=== PATIENT | female | born 1970 | race Caucasian/White ===

== ENCOUNTER 2016-07-28 20:16 | Emergency (ER) | payer OTHER ==
[~2016-07-28] VITALS: Ht 170.2 cm; Wt 80.2 kg
[~2016-07-28 20:16] MED LIST: ALPR1TAB3 PO; ATOR-24 PO; CLX40 PO; FIBER PO; GLC/500 PO; HYDR12.55 PO; IBUP-1451 PO; METO100T14 PO; PANT40TA PO; TRAM-10 PO; [UNRECOGNIZED DRUG - CODE] PO
[2016-07-28 20:34] VITALS: TEMP 37.5; Ht 170.2 cm; Wt 80.2 kg
[2016-07-28 21:15] LABS: MANUAL MICROSCOPIC REQUIRED? NO; URINE APPEARANCE CLEAR (CLEAR); URINE BILIRUBIN NEG (NEG); URINE COLOR YELLOW; URINE NITRITE NEG (NEG); URINE PH 5.5 (4.5-7.5); URINE SPECIFIC GRAVITY >= 1.030 (1.000-1.030); UROBILINOGEN NEG (NEG)
[2016-07-28 21:25] LABS: REVIEW REQ? NO
[2016-07-28 21:27] LABS: ZZUR CULT IF INDIC CLEAN CATCH NO
[2016-07-28 21:31] LABS: BASO % 0.2 %; BASO ABS # 0.01 K/uL (0-0.2); COMPLETE YES; EOS % 0.5 %; HEMATOCRIT 40.7 % (37-47); IG% 0.2 %; LYMPH % 37.7 %; LYMPH ABS # 2.31 K/uL (1.2-3.4); MEAN CELL VOLUME 97.6 fL (80-100); MEAN CORPUSCULAR HEMOGLOBIN 34.8 pg (25-34); MEAN CORPUSCULAR HGB CONC 35.6 g/dl (32-36); MEAN PLATELET VOLUME 9.2 fL (7.4-10.4); MONO % 4.7 %; NEUT % 56.7 %; PLATELET COUNT 291 K/uL (130-400); RED BLOOD COUNT 4.17 M/uL (4.2-5.4); WHITE BLOOD COUNT 6.12 K/uL (4.8-10.8)
[2016-07-28 21:40] LABS: BENZODIAZEPINE, URINE NEG (NEG); COCAINE,URINE NEG (NEG); PHENCYCLIDINE, URINE NEG (NEG)
[2016-07-28 21:50] LABS: BUN/CREATININE RATIO 14.3 (10-20); CREATININE 0.7 mg/dl (0.60-1.20); POTASSIUM 3.1 mmol/L (3.5-5.1)
[2016-07-28 22:00] LABS: THYROID STIMULATING HORMONE 0.288 uIu/ml (0.300-4.500)
[2016-07-28] MEDS ORDERED: VENL150C56 PO (22:49)
[2016-07-28] MEDS ORDERED: TPM/50 PO (22:51)
[2016-07-28] MEDS ORDERED: TRAZ100T29 PO (22:52)
[2016-07-28] MEDS ORDERED: IMD/2 PO (22:52)
--- NOTE | 2016-07-28 23:32 | EMERGENCY ROOM VISIT NOTE ---
History Report prepared by Saima: Gabriel Barraza Under the Supervision of: Dr. Adriana Stein D.O. First contact with patient: 23:00 Chief Complaint: MENTAL HEALTH EVALUATION Stated Complaint: MENTAL HEALTH EVAL History of Present Illness The patient is a 45 year old female who presents to the Emergency Room with complaints of a mental health evaluation. She notes that her friend who is a nurse called the police because she posted on Facebook indicating that she wanted to "end it all". She later deleted this post. The patient posted this because she has been upset recently as she has been fighting with her fiance for the past 2 weeks. She notes the thoughts she expressed on Facebook just "came out". She admits to being drunk at the time of the post, and admits to drinking alcohol and smoking marijuana occasionally. The patient's fiance is aware that she is in the ER, and she notes she lives with her fiance. She states she feels safe at home and denies suicidal ideations. The patient reports a history of hurting herself since she was a child, and has been cutting herself with a razor blade the past few days. She has not followed regularly with a psychiatric, but used to follow with one in the past. She admits to being admitted twice to psychiatric facilities in the, the last of which was in 2011 for cutting her arm. The patient reports having intermittent abdominal pain for the past 3 weeks along with some occasional vomiting. She denies having any chest pain, nausea, or diarrhea. She notes she still has her gallbladder. Source of History: patient Onset: this evening Position: head Quality: other (mental health evaluation) Timing: other (episode) Associated Symptoms: + abdominal pain, + vomiting, No chest pain, No diarrhea, No nausea Note: The patient denies having any suicidal ideations. Review of Systems See HPI for pertinent positives & negatives. A total of 10 systems reviewed and were otherwise negative. Past Medical & Surgical Medical Problems: (1) Acute exacerbation of chronic low back pain (2) Anxiety disorder (3) Depression (4) Depressive disorder (5) Diab Shanice Wo Compl, Type Ii Or Unspec Type, Not Uncntrld (6) Diabetes mellitus (7) Disc displacement, lumbar (8) Dyslipidemia (9) Dyslipidemia (10) GERD (gastroesophageal reflux disease) (11) GERD (gastroesophageal reflux disease) (12) History of kidney stones (13) HTN (hypertension) (14) Hypertension Nos (15) Lumbago (16) Morbid obesity (17) Osteoarthritis (18) PTSD (post-traumatic stress disorder) Surgical Problems: (1) History of ureter stent Family History No pertinent family history stated. Social History Smoking Status: Current Every Day Smoker Alcohol Use: occasionally Drug Use: marijuana Marital Status: in relationship Current/Historical Medications Scheduled Atorvastatin (Lipitor), 80 MG PO HS Candesartan (Atacand), 8 MG PO DAILY Hydrochlorothiazide (Hydrochlorothiazide), 1 TAB PO DAILY Loperamide Hcl (Imodium), 4 MG PO BID Metformin Hcl (Glucophage), 500 MG PO BID Metoprolol Tartrate (Lopressor) (Lopressor), 100 MG PO QAM Pantoprazole (Protonix), 40 MG PO DAILY Topiramate (Topamax), 50 MG PO QAM Trazodone Hcl (Trazodone), 150 MG PO HS Venlafaxine Hcl (Effexor Extended Rel), 150 MG PO DAILY Scheduled PRN Ibuprofen Tab (Motrin), 800 MG PO Q8H PRN for Pain Allergies Coded Allergies: Hydrocodone (Unverified Allergy, Mild, RASH, 07/28/16) Lisinopril (Unverified Allergy, Mild, SHORTNESS OF BREATH, 07/28/16) Physical Exam Vital Signs Date Time Temp Pulse Resp B/P Pulse Ox O2 Delivery O2 Flow Rate FiO2 07/29/16 07:30 77 20 123/83 95 07/29/16 06:45 84 20 131/105 97 Room Air 07/29/16 00:59 82 18 159/86 99 Room Air 07/28/16 22:38 91 15 129/78 96 Room Air 07/28/16 20:34 37.5 100 20 133/94 96 Room Air Physical Exam HEENT: Head - normocephalic and atraumatic Pupils are equal, round, and reactive to light. Extraocular eye muscles are intact, and sclera are anicteric. Nose - moist nasal mucosa without discharge. Mouth - moist buccal mucosa. Oropharynx is nonerythematous and there is no tonsillar exudate or edema noted. Neck: Supple; no JVD, nuchal rigidity, cervical lymphadenopathy. Heart: Regular rate and rhythm. There is a normal S1 and S2 with no murmurs, clicks, or gallops appreciated. Lungs: Clear to auscultation bilaterally with no wheezes, rales, or rhonchi. Abdomen: Soft, completely nontender, nondistended, with good bowel sounds. There are no palpable pulsatile masses or hepatosplenomegaly. There is no guarding, rigidity, or rebound noted. Extremities: No evidence of cyanosis, clubbing, or edema. There are easily palpable peripheral pulses. Skin: Superficial scabbed over laceration on left hand and right forearm. Psych: Normal affect; denies suicidal ideation; admits to self-mutilation. Medical Decision & Procedures ER Provider Diagnostic Interpretation: Radiology results as stated below per my review and the radiologist's interpretation: US RUQ: Cholelithiasis without evidence of acute cholecystitis. No intra-or extrahepatic biliary ductal dilation. Increased hepatic echogenicity, consistent with hepatic steatosis. No right hydronephrosis. No right upper quadrant free fluid. Radiologist: Ayanna Sexton M.D. Laboratory Results 07/28/16 21:12 Red Blood Count 4.17, Mean Corpuscular Volume 97.6, Mean Corpuscular Hemoglobin 34.8, Mean Corpuscular Hemoglobin Concent 35.6, Mean Platelet Volume 9.2, Neutrophils (%) (Auto) 56.7, Lymphocytes (%) (Auto) 37.7, Monocytes (%) (Auto) 4.7, Eosinophils (%) (Auto) 0.5, Basophils (%) (Auto) 0.2, Neutrophils # (Auto) 3.47, Lymphocytes # (Auto) 2.31, Monocytes # (Auto) 0.29, Eosinophils # (Auto) 0.03, Basophils # (Auto) 0.01 07/28/16 21:12 Test 07/28/16 20:30 07/28/16 21:12 07/28/16 21:38 Urine Color YELLOW Urine Appearance CLEAR (CLEAR) Urine pH 5.5 (4.5-7.5) Urine Specific [place] >= 1.030 (1.000-1.030) Urine Protein NEG (NEG) Urine Glucose (UA) NEG (NEG) Urine Ketones NEG (NEG) Urine Occult Blood NEG (NEG) Urine Nitrite NEG (NEG) Urine Bilirubin NEG (NEG) Urine Urobilinogen NEG (NEG) Urine Leukocyte Esterase NEG (NEG) Urine Test NEG (NEG) Urine Opiates Screen NEG (NEG) Urine Methadone, Qualitative NEG (NEG) Urine Barbiturates NEG (NEG) Urine Phencyclidine (PCP) Level NEG (NEG) Ur Amphetamine/Methamphetamine NEG (NEG) MDMA (Ecstasy) Screen POS (NEG) Urine Benzodiazepines Screen NEG (NEG) Urine Cocaine Metabolite NEG (NEG) Urine Marijuana (THC) POS (NEG) White Blood Count 6.12 K/uL (4.8-10.8) Red Blood Count 4.17 M/uL (4.2-5.4) Hemoglobin 14.5 g/dL (12.0-16.0) Hematocrit 40.7 % (37-47) Mean Corpuscular Volume 97.6 fL (80-100) Mean Corpuscular Hemoglobin 34.8 pg (25-34) Mean Corpuscular Hemoglobin Concent 35.6 g/dl (32-36) Platelet Count 291 K/uL (130-400) Mean Platelet Volume 9.2 fL (7.4-10.4) Neutrophils (%) (Auto) 56.7 % Lymphocytes (%) (Auto) 37.7 % Monocytes (%) (Auto) 4.7 % Eosinophils (%) (Auto) 0.5 % Basophils (%) (Auto) 0.2 % Neutrophils # (Auto) 3.47 K/uL (1.4-6.5) Lymphocytes # (Auto) 2.31 K/uL (1.2-3.4) Monocytes # (Auto) 0.29 K/uL (0.11-0.59) Eosinophils # (Auto) 0.03 K/uL (0-0.5) Basophils # (Auto) 0.01 K/uL (0-0.2) RDW Standard Deviation 46.6 fL (36.4-46.3) RDW Coefficient of Variation 13.1 % (11.5-14.5) Immature Granulocyte % (Auto) 0.2 % Immature Granulocyte # (Auto) 0.01 K/uL (0.00-0.02) Anion Gap 14.0 mmol/L (3-11) Est Creatinine Clear Calc Drug Dose 108.3 ml/min Estimated GFR () 119.6 Estimated GFR (Non- 103.2 BUN/Creatinine Ratio 14.3 (10-20) Calcium Level 9.0 mg/dl (8.5-10.1) Total Bilirubin 0.2 mg/dl (0.2-1) Aspartate Amino Transf (AST/SGOT) 18 U/L (15-37) Alanine Aminotransferase (ALT/SGPT) 27 U/L (12-78) Alkaline Phosphatase 97 U/L (45-117) Total Protein 7.7 gm/dl (6.4-8.2) Albumin 3.8 gm/dl (3.4-5.0) Globulin 3.9 gm/dl (2.5-4.0) Albumin/Globulin Ratio 1.0 (0.9-2) Lipase 103 U/L (73-393) Thyroid Stimulating Hormone (TSH) 0.288 uIu/ml (0.300-4.500) Ethyl Alcohol mg/dL 19.0 mg/dl (0-3) Bedside Glucose 114 mg/dl (70-90) Laboratory results per my review. Medications Administered Medications (Trade) Dose Ordered Sig/Monique Route Start Time Stop Time Status Last Admin Dose Admin Potassium Chloride (Klor-Con M10) 20 meq NOW STAT PO 07/29/16 06:16 07/29/16 06:17 DC 07/29/16 06:38 20 MEQ Procedure 0616: Ordered Potassium Chloride 20 meq PO. ED Course 2305: Past medical records reviewed. The patient was evaluated in room A8. A complete history and physical exam was performed. Laboratory studies were drawn as above. 0225: I reassessed the patient. She was asleep, and I woke and updated the patient. The patient will be evaluated by mobile crisis. 0412: Mobile crisis saw the patient and will contact her fiance to make sure he feels comfortable with the patient coming home. 0426: Mobile crisis was unable to reach the patient's fiance. We will wait to speak with him prior to discharging the patient. 0616: Ordered Potassium Chloride 20 meq PO. 0630: Upon reevaluation, the patient is doing well. I discussed findings and results with the patient. She verbalized agreement of the treatment plan. The lunch counter manager was able to speak with the patient's fianc with whom she lives. He is willing to help take response bili for this patient and contract for safety. The patient was discharged home. Medical Decision The patient is a 45 year old female who presents to the Emergency Room with complaints of a mental health evaluation. Differentials include cholecystitis, pancreatitis, hepatitis, self-mutilation, suicidal ideation, thought disorder, and mood disorder. Laboratory interpretation: Normal white count; stable H&H; low TSH at 0.2; glucose 133; LFTs and renal function are normal; potassium is low at 3.1; alcohol is 1.9; toxicology screen is positive for marijuana and MDMA; is negative; urinalysis is normal; lipase is 103. The patient has a long-standing history of self-mutilation. She has had previous attempts at suicide and inpatient psychiatric stays. The patient states that she was angry when she made these posts on Facebook. She denies suicidal ideation at this time. She was able to contract for safety. [facility] agreed that she did not meet inpatient criteria. They will follow up with her also. She was encouraged to call [facility] if she felt suicidal. She was noted to have a low potassium. She was given oral supplementation and told to take foods high in potassium. Impression Primary Impression: Mood disorder Additional Impressions: Self-mutilation Hypokalemia Scribe Attestation The scribe's documentation has been prepared under my direction and personally reviewed by me in its entirety. I confirm that the note above accurately reflects all work, treatment, procedures, and medical decision making performed by me. Departure Information Dispostion Home / Self-Care Referrals No Doctor, Assigned (PCP) Forms HOME CARE DOCUMENTATION FORM, IMPORTANT VISIT INFORMATION Patient Instructions Depression Help Tips, Hypokalemia Zach, My [facility] Additional Instructions You will need close follow up with psychiatry. [facility] will follow up with you. If you have thoughts of self-harm, call [facility] Avoid alcohol and maijuana abuse. Rest. Take plenty of foods high in potassium as your potassium was low. Problem Qualifiers
[2016-07-29] MEDS ORDERED: POTASSIUM CHLORIDE 10 MEQ TABCR PO STA (06:16)
--- NOTE | 2016-07-29 07:02 | DIAGNOSTIC IMAGING REPORT ---
ULTRASOUND RIGHT UPPER QUADRANT ABDOMEN CLINICAL HISTORY: Right upper quadrant abdominal pain. COMPARISON STUDY: No priors. TECHNIQUE: Real-time, grayscale, and color flow sonography of the right upper quadrant of the abdomen was performed. Images are reviewed in the transverse and longitudinal planes. FINDINGS: Liver: The liver is top normal in size and demonstrates heterogeneously increased echotexture consistent with hepatic steatosis. There is no intrahepatic biliary ductal dilatation. The main portal vein is patent. Gallbladder: There are small gallstones and biliary sludge. There is no gallbladder wall thickening or pericholecystic fluid. A sonographic Walker's sign is reportedly absent. The common bile duct measures up to 0.4 cm in diameter. Pancreas: Visualized portions of the pancreatic head and body are normal in appearance. Right kidney: Survey images of the right kidney demonstrate normal size and echotexture. There is no hydronephrosis. Ascites: None. IMPRESSION: 1. Gallstones/biliary sludge. There is no sonographic evidence of acute cholecystitis. 2. Findings are consistent with mild hepatic steatosis. Electronically signed by: Tk Velazquez M.D. 07/29/2016 7:01 AM Dictated Date/Time: 07/29/2016 6:59 AM
[2016-07-29 07:30] VITALS: BP 123/83; PULSE 77; O2SAT 95
== END 2016-07-29 07:35 | disposition home or self-care (01) ==
LOC: C.EDB 20:16 → C.EDA 07-29 07:35
DX: F39 Unspecified mood [affective] disorder (principal); Z91.5 Personal history of self-harm; E87.6 Hypokalemia; E78.5 Hyperlipidemia, unspecified; E11.9 Type 2 diabetes mellitus without complications; I10 Essential (primary) hypertension; F32.9 Major depressive disorder, single episode, unspecified; K21.9 Gastro-esophageal reflux disease without esophagitis; F41.9 Anxiety disorder, unspecified; M51.26 Other intervertebral disc displacement, lumbar region; M19.90 Unspecified osteoarthritis, unspecified site; F17.200 Nicotine dependence, unspecified, uncomplicated; Z87.442 Personal history of urinary calculi; Z79.84 Long term (current) use of oral hypoglycemic drugs; Z79.899 Other long term (current) drug therapy; Z88.8 Allergy status to other drugs, medicaments and biological substances

== ENCOUNTER 2016-10-05 11:26 | Emergency (ER) | payer OTHER ==
[~2016-10-05] VITALS: Ht 172.7 cm; Wt 80.3 kg
[~2016-10-05 11:26] MED LIST changes: -ALPR1TAB3 PO; -CLX40 PO; -FIBER PO; +IMD/2 PO; +TPM/50 PO; -TRAM-10 PO; +TRAZ100T29 PO; +VENL150C56 PO
[2016-10-05 11:33] VITALS: BP 100/75; PULSE 77; TEMP 36.7; O2SAT 96; Ht 172.7 cm; Wt 80.3 kg
[2016-10-05] MEDS ORDERED: PENI500T2 PO (11:44)
[2016-10-05] MEDS ORDERED: OXYC-57 PO (11:53)
--- NOTE | 2016-10-05 11:54 | EMERGENCY ROOM VISIT NOTE ---
ED Visit Note First contact with patient: 11:42 CHIEF COMPLAINT: Toothache HISTORY OF PRESENT ILLNESS: This 46-year-old female patient presented to the emergency department via private vehicle with a progressive toothache for past few days. The patient believes it is coming from the left side of her mouth. The pain is now steady and severe and radiates to the face. The patient had [address] Jacobson in [place] 4 days ago. They rate their pain a 8/10 and the pain medication there previously prescribed has run out. Patient states she woke up today around 4:30 because of the pain. She also believes left side of her face has some swelling. She denies any fevers, chills, chest pain, shortness of breath. Denies facial swelling or fever. The patient denies any discharge from the mouth. REVIEW OF SYSTEMS: A 6 system review of systems was completed with positives and pertinent negatives listed in the HPI. ALLERGIES: Hydrocodone, lisinopril MEDICATIONS: As noted below PMH: Diabetes, high blood pressure, bronchitis, stomach problems, ulcer, gallbladder, kidney stones, tubal ligation, cholecystectomy SOCIAL HISTORY: Patient lives at home with boyfriend PHYSICAL EXAM: Vitals are noted on the nurse's note and reviewed by myself. Vital signs stable. Temperature 36.7C orally. GENERAL: 46-year-old female, in no acute distress, nondiaphoretic, well-developed well-nourished. Mouth: The left side of the upper and lower dentition has been removed, without evidence of dry socket. The rest of the mouth without any discharge or signs of an abscess. The remainder of the pharynx and tonsils are without erythema, edema, or exudate. The airway is patent. There is no facial swelling, cervical or submandibular lymphadenopathy. The patient appears uncomfortable and in pain. No Jose Luis angina sign. The patient has overall poor dental hygiene. ED COURSE: Patient was seen and evaluated as above. After obtaining a thorough history and physical examination is apparent that the patient is likely experiencing pain status post dentition removal. There is no evidence of infection. No evidence of dry socket. No evidence of Jose Luis angina. I suspect the patient is experiencing pain as she has recently run out of her pain medication. She has an appointment scheduled with her dentist this coming week. She spoke with them over the phone yesterday, expressing her concern of pain. At this time I believe that she may continue the antibiotics, and I will provide her with a short-term supply of pain medication while the dentition region is healing. I believe she is stable for outpatient management. She was educated upon worrisome symptoms which to return, had questions prior to discharge, and was discharged home in good condition. In the treatment of this patient controlled medication was utilized and therefore the [facility], Prescription Drug Monitoring Program website was utilized to look up this patient. No concerns were identified that would prohibit or alter my treatment decision. IMPRESSION: Odontalgia In the evaluation and treatment of this patient, the following differential diagnoses were considered: Periapical Abscess, Osteonecrosis of the Jaw, Dental Fracture, Dental Caries, Jose Luis's Angina, Vincent's Angina, Facial Cellulitis. Problem List Medical Problems: (1) Acute exacerbation of chronic low back pain Status: Resolved (2) Anxiety disorder Status: Chronic (3) Depression Status: Chronic (4) Depressive disorder Status: Chronic (5) Diab Shanice Wo Compl, Type Ii Or Unspec Type, Not Uncntrld Status: Chronic (6) Diabetes mellitus Status: Chronic (7) Disc displacement, lumbar Status: Chronic (8) Dyslipidemia Status: Chronic (9) Dyslipidemia Status: Chronic (10) GERD (gastroesophageal reflux disease) Status: Chronic (11) GERD (gastroesophageal reflux disease) Status: Chronic (12) History of kidney stones Status: Resolved (13) HTN (hypertension) Status: Chronic (14) Hypertension Nos Status: Chronic (15) Lumbago Status: Chronic (16) Morbid obesity Status: Chronic (17) Osteoarthritis Status: Chronic (18) PTSD (post-traumatic stress disorder) Status: Chronic Surgical Problems: (1) History of ureter stent Status: Resolved Current/Historical Medications Scheduled Atorvastatin (Lipitor), 80 MG PO HS Candesartan (Atacand), 8 MG PO DAILY Hydrochlorothiazide (Hydrochlorothiazide), 1 TAB PO DAILY Loperamide Hcl (Imodium), 4 MG PO BID Metformin Hcl (Glucophage), 500 MG PO BID Metoprolol Tartrate (Lopressor) (Lopressor), 100 MG PO QAM Pantoprazole (Protonix), 40 MG PO DAILY Penicillin V Potassium (Veetids), 500 MG PO QID Topiramate (Topamax), 50 MG PO QAM Trazodone Hcl (Trazodone), 150 MG PO HS Venlafaxine Hcl (Effexor Extended Rel), 150 MG PO DAILY Scheduled PRN Ibuprofen Tab (Motrin), 800 MG PO Q8H PRN for Pain Oxycodone/Acetaminophen 5MG/325MG (Percocet 5MG/325MG), 1 TABS PO Q4 PRN for Pain Allergies Coded Allergies: Hydrocodone (Unverified Allergy, Mild, RASH, 10/05/16) Lisinopril (Unverified Allergy, Mild, SHORTNESS OF BREATH, 10/05/16) Vital Signs Date Time Temp Pulse Resp B/P Pulse Ox O2 Delivery O2 Flow Rate FiO2 10/05/16 11:33 36.7 77 18 100/75 96 Room Air Departure Information Impression Primary Impression: Odontalgia Dispostion Home / Self-Care Condition GOOD Prescriptions Oxycodone/Acetaminophen 5MG/325MG (PERCOCET 5MG/325MG) Tab 1 TABS PO Q4 Y for Pain, #18 TAB For Initial Treatment Prov: Hernando Mccurdy PA-C 10/05/16 Referrals No Doctor, Assigned (PCP) Patient Instructions My [facility] Additional Instructions You have been treated in the Emergency Department for Dental Pain. You have been prescribed PERCOCET to be used for pain control. This is a narcotic medication. You cannot drive or consume alcohol while on this medicine. This medicine should only be used for pain that cannot be controlled with [id number] pain medicines. Please continue your Pen VK For pain control, you can use the following [id number]-[id number] medicines (if >12 yo): NO TYLENOL WITH THE PERCOCET - Regular strength (200 mg/tab) Advil (ibuprofen) 1-2 tabs every 4-6 hours as needed. Do not exceed a dose of 3200 mg per day. Refrain from smoking cigarettes or using chewing tobacco until you have been evaluated by your dentist. Keeping beverages lukewarm and consuming soft foods can decrease your pain. Warm compresses over the affected area may offer some relief. You MUST seek evaluation of your dental pain by a dentist following your visit to the Emergency Department. The Emergency Department is not capable of treating dental issues long-term. You should call your dentist as soon as possible to make an appointment for evaluation of your dental pain. Please keep her Friday appointment. Return to the emergency department if you develop the following symptoms despite treatment course outlined above: fever, intractable pain, increased redness, swelling, or purulent discharge. Please return to the emergency department with any new/concerning symptoms.
--- NOTE | 2017-04-10 05:30 | Surgery Progress Note ---
Surgery Progress Note Date of Service Apr 10, 2017. Subjective see dictated note Assessment & Plan 04/10/17- adm with Lt sided rib fxs and small hemopneumothorax
== END 2016-10-05 12:00 | disposition home or self-care (01) ==
LOC: C.EDB 11:28 → C.EDD 12:00
DX: K08.89 Other specified disorders of teeth and supporting structures (principal); E11.9 Type 2 diabetes mellitus without complications; I10 Essential (primary) hypertension; E78.5 Hyperlipidemia, unspecified; F41.9 Anxiety disorder, unspecified; F32.9 Major depressive disorder, single episode, unspecified; K21.9 Gastro-esophageal reflux disease without esophagitis; M19.90 Unspecified osteoarthritis, unspecified site; Z87.19 Personal history of other diseases of the digestive system; Z87.442 Personal history of urinary calculi; Z98.51 Tubal ligation status; Z90.49 Acquired absence of other specified parts of digestive tract; Z88.5 Allergy status to narcotic agent; Z88.8 Allergy status to other drugs, medicaments and biological substances

== ENCOUNTER 2017-04-10 02:37 | Inpatient (IN) | payer SELFPAY ==
[2017-04-10] VITALS (12 sets, daily range): BP systolic 100–152; BP diastolic 68–97; PULSE 7–121; TEMP 36.6–37.3; O2SAT 90–100; Ht 172.7 cm; Wt 84.8 kg
[~2017-04-10] VITALS: Ht 172.7 cm; Wt 84.8 kg
[~2017-04-10 02:37] MED LIST changes: +PENI500T2 PO
[2017-04-10 04:34] LABS: BLOOD UREA NITROGEN 8 mg/dl (7-18); CALCIUM 8.7 mg/dl (8.5-10.1); CARBON DIOXIDE 26 mmol/L (21-32); CHLORIDE 108 mmol/L (98-107); HEMATOCRIT 45.8 % (37-47); MEAN CELL VOLUME 99.8 fL (80-100); MEAN CORPUSCULAR HEMOGLOBIN 33.8 pg (25-34); MEAN CORPUSCULAR HGB CONC 33.8 g/dl (32-36); MEAN PLATELET VOLUME 9.5 fL (7.4-10.4); PLATELET COUNT 321 K/uL (130-400); POTASSIUM 3.5 mmol/L (3.5-5.1); RED BLOOD COUNT 4.59 M/uL (4.2-5.4); SODIUM 142 mmol/L (136-145); WHITE BLOOD COUNT 11.43 K/uL (4.8-10.8)
[2017-04-10 04:41] LABS: GLUCOSE 182 mg/dl (70-99)
[2017-04-10 04:42] LABS: BUN/CREATININE RATIO 9.8 (10-20); CREATININE 0.82 mg/dl (0.60-1.20)
[2017-04-10] MEDS ORDERED: PROMETHAZINE HCL INJ 25 MG in SODIUM CHLORIDE 0.9% 50ML 50 ML IV PRN (05:15)
[2017-04-10] MEDS ORDERED: ONDANSETRON INJ 2 MG/ML 2 ML VIAL IV PRN (05:15)
[2017-04-10] MEDS ORDERED: OXYCODONE/ACETAMINOPHEN 5-325 TAB ONE (05:26)
[2017-04-10] MEDS: OXYCODONE/ACETAMINOPHEN 5-325 TAB PO PRN ×4 (05:30→23:01)
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
[2017-04-10] MEDS ORDERED: PROMETHAZINE HCL INJ 12.5 MG in SODIUM CHLORIDE 0.9% 50ML 50 ML IV PRN (06:15)
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
[2017-04-10] MEDS ORDERED: INFLUENZA ADMINISTRATION CHARGE ONE (07:00)
[2017-04-10] MEDS ORDERED: INFLUENZA VIRUS QUAD VACCINE 0.5 ML SYR IM. ONE (07:00)
--- NOTE | 2017-04-10 07:02 | DIAGNOSTIC IMAGING REPORT ---
(CHEST) THORAX WITH CT DOSE: HISTORY: Trauma. Pain. R/O TRAUMA TO CHEST TECHNIQUE: Multiaxial CT images of the chest were performed following the intravenous administration of contrast. A dose lowering technique was utilized adhering to the principles of ALARA. COMPARISON: None. FINDINGS: Nondisplaced cortical fractures left fourth sixth and seventh ribs. Trace pleural fluid left base. Mild bibasilar atelectatic and/or infiltrative change versus small contusions. Very small basilar left anterior pneumothorax. Upper lungs are clear. No significant abnormality of mediastinum. IMPRESSION: 1. Nondisplaced fractures left fourth 6 and seventh ribs. 2. Trace left basilar pneumothorax anteriorly. 3. Mild bibasilar contusion-type change with trace pleural fluid left base. The above report was generated using voice recognition software. It may contain grammatical, syntax or spelling errors. Electronically signed by: Reji Sanchez M.D. 04/10/2017 7:00 AM Dictated Date/Time: 04/10/2017 6:56 AM
[2017-04-10] MEDS ORDERED: LORAZEPAM 2 MG/ML 1 ML VIAL IV PRN ×3 (07:15→09:00)
[2017-04-10] MEDS ORDERED: GABAPENTIN 600 MG TAB PO SCH ×2 (07:15→09:15)
[2017-04-10] MEDS: HYDROmorphone INJ 0.5 MG/0.5 ML SYR IV PRN ×3 (07:25→19:16)
--- NOTE | 2017-04-10 07:26 | DIAGNOSTIC IMAGING REPORT ---
CHEST ONE VIEW PORTABLE CLINICAL HISTORY: 46 years-old Female presenting with rib fxs small hemopneumo. TECHNIQUE: Portable upright AP view of the chest was obtained. COMPARISON: 11/29/[address] performed on 04/10/2017. FINDINGS: Cardiomediastinal silhouette normal. Minimal dependent changes with overall mildly low lung volumes and hypoventilatory changes. Mild prominence of pulmonary vasculature. The small left pneumothorax noted on contemporaneous chest CT is not radiographically apparent. No large pleural effusion. Fractures of the left ribs are also better evaluated on chest CT. Upper abdomen normal. IMPRESSION: 1. The left rib fractures and small left pneumothorax are not radiographically apparent. Overall mildly low lung volumes with bibasilar opacities. Electronically signed by: Butch Trammell M.D. 04/10/2017 7:25 AM Dictated Date/Time: 04/10/2017 7:22 AM
[2017-04-10] MEDS: LACTATED RINGER'S 1000ML 1,000 ML IV SCH (07:31)
[2017-04-10] MEDS ORDERED: GABAPENTIN 1200MG LOADING DOSE PO ONE (08:00)
[2017-04-10] MEDS: METOPROLOL TARTRATE 100 MG TAB PO SCH (08:02)
[2017-04-10] MEDS: VENLAFAXINE HCL XR 150 MG CAPXR PO SCH (08:02)
[2017-04-10] MEDS: HYDROCHLOROTHIAZIDE 25 MG TAB PO SCH (08:02)
[2017-04-10] MEDS: TOPIRAMATE 25 MG TAB PO SCH (08:03)
[2017-04-10] MEDS: PANTOprazole SOD 40 MG TAB PO SCH (08:03)
[2017-04-10] MEDS ORDERED: LYSI1TAB12 PO (09:07)
[2017-04-10] MEDS ORDERED: MULT-506 PO (09:07)
[2017-04-10] MEDS ORDERED: POTA20TA13 PO (09:07)
[2017-04-10] MEDS ORDERED: GLUCOSE 10 TABS/TUBE PO PRN (09:15)
[2017-04-10] MEDS ORDERED: DEXTROSE 50% 50 ML SYR IV PRN (09:15)
[2017-04-10] MEDS ORDERED: GLUCOSE 40% GEL 15 GM TUBE PO PRN (09:15)
[2017-04-10] MEDS ORDERED: GLUCAGON FOR INJ 1 MG VIAL SQ PRN (09:15)
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
[2017-04-10] MEDS: THIAMINE HCL 100 MG TAB PO SCH (09:54)
[2017-04-10] MEDS: LIDODERM (LIDOCAINE) PATCH 5% TD SCH (09:54)
[2017-04-10] MEDS: MULTIVITAMIN TAB PO SCH (09:54)
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
[2017-04-10] MEDS: INSULIN ASPART 100 UNITS/ML 3 ML PEN SC SCH ×3 (12:47→21:08)
[2017-04-10] MEDS ORDERED: GABAPENTIN 600MG Q6H DOSE PO SCH (14:00)
[2017-04-10] MEDS: ATORVASTATIN 20 MG TAB PO SCH (20:58)
[2017-04-10] MEDS: TRAZODONE HCL 100 MG TAB PO SCH (20:59)
[2017-04-11] VITALS (12 sets, daily range): BP systolic 89–116; BP diastolic 60–80; PULSE 63–82; TEMP 36.4–37; O2SAT 90–97
[2017-04-11] MEDS: LACTATED RINGER'S 1000ML 1,000 ML IV SCH (05:45)
[2017-04-11] MEDS ORDERED: GABAPENTIN 600MG Q8H DOSE PO SCH (06:00)
[2017-04-11 06:08] LABS: HEMATOCRIT 39.7 % (37-47); MEAN CELL VOLUME 100.8 fL (80-100); MEAN CORPUSCULAR HEMOGLOBIN 32.7 pg (25-34); MEAN CORPUSCULAR HGB CONC 32.5 g/dl (32-36); MEAN PLATELET VOLUME 9.2 fL (7.4-10.4); PLATELET COUNT 229 K/uL (130-400); RED BLOOD COUNT 3.94 M/uL (4.2-5.4); WHITE BLOOD COUNT 8.79 K/uL (4.8-10.8)
[2017-04-11] MEDS: HYDROmorphone INJ 0.5 MG/0.5 ML SYR IV PRN ×3 (06:27→18:25)
[2017-04-11 06:31] LABS: ESTIMATED AVERAGE GLUCOSE 140 mg/dl; HA1C FLAG Normal (Normal)
[2017-04-11 06:44] LABS: ALB/GLOB RATIO 0.9 (0.9-2); BUN/CREATININE RATIO 16.9 (10-20); CREATININE 0.64 mg/dl (0.60-1.20); MAGNESIUM 1.7 mg/dl (1.8-2.4); POTASSIUM 3.5 mmol/L (3.5-5.1)
--- NOTE | 2017-04-11 07:20 | Surgery Progress Note ---
Surgery Progress Note Date of Service Apr 11, 2017. Subjective + pain controlled (mostly Percocet, had dilaudid this AM) Objective Vital Signs: Date Time Temp Pulse Resp B/P (MAP) Pulse Ox O2 Delivery O2 Flow Rate FiO2 04/11/17 04:54 37.0 74 18 113/78 (90) 96 Nasal Cannula 2.0 04/11/17 04:04 Room Air 2.0 04/11/17 00:05 Room Air 2.0 04/10/17 23:07 36.7 7 18 123/85 (98) 90 Room Air 04/10/17 20:00 95 Room Air 2.0 04/10/17 19:19 36.7 74 18 112/77 (89) 95 Nasal Cannula 2.0 04/10/17 16:37 66 116/81 (93) 95 Nasal Cannula 2.0 04/10/17 16:00 95 Room Air 2.0 04/10/17 15:33 36.6 67 18 100/70 (80) 97 Room Air 04/10/17 13:04 37.1 83 18 131/68 (89) 95 Nasal Cannula 2.0 04/10/17 12:00 95 Nasal Cannula 2.0 04/10/17 08:00 96 Nasal Cannula 2.0 04/10/17 07:32 20 98 Nasal Cannula 2.0 Respiratory/Chest: no respiratory distress, no accessory muscle use Laboratory Results: Results Past 24 Hours Test 04/10/17 11:36 04/10/17 16:31 04/10/17 20:20 04/11/17 05:44 Range/Units Bedside Glucose 135 100 119 70-90 mg/dl White Blood Count 8.79 4.8-10.8 K/uL Red Blood Count 3.94 4.2-5.4 M/uL Hemoglobin 12.9 12.0-16.0 g/dL Hematocrit 39.7 37-47 % Mean Corpuscular Volume 100.8 80-100 fL Mean Corpuscular Hemoglobin 32.7 25-34 pg Mean Corpuscular Hemoglobin Concent 32.5 32-36 g/dl RDW Standard Deviation 47.2 36.4-46.3 fL RDW Coefficient of Variation 12.8 11.5-14.5 % Platelet Count 229 130-400 K/uL Mean Platelet Volume 9.2 7.4-10.4 fL Sodium Level 135 136-145 mmol/L Potassium Level 3.5 3.5-5.1 mmol/L Chloride Level 101 98-107 mmol/L Carbon Dioxide Level 30 21-32 mmol/L Anion Gap 4.0 3-11 mmol/L Blood Urea Nitrogen 11 7-18 mg/dl Creatinine 0.64 0.60-1.20 mg/dl Est Creatinine Clear Calc Drug Dose 119.0 ml/min Estimated GFR () 122.3 Estimated GFR (Non- 105.5 BUN/Creatinine Ratio 16.9 10-20 Random Glucose 131 70-99 mg/dl Estimated Average Glucose 140 mg/dl Hemoglobin A1c 6.5 4.5-5.6 % Calcium Level 9.0 8.5-10.1 mg/dl Magnesium Level 1.7 1.8-2.4 mg/dl Total Bilirubin 0.8 0.2-1 mg/dl Aspartate Amino Transf (AST/SGOT) 21 15-37 U/L Alanine Aminotransferase (ALT/SGPT) 43 12-78 U/L Alkaline Phosphatase 109 45-117 U/L Total Protein 6.7 6.4-8.2 gm/dl Albumin 3.2 3.4-5.0 gm/dl Globulin 3.5 2.5-4.0 gm/dl Albumin/Globulin Ratio 0.9 0.9-2 Assessment & Plan multiple rib fractures continue Percocet, dilaudid for breakthrough ambulate, cont I.S. home when off IV analgesics 04/11/17- pt will likely need 1-2 more days in hospital check cxr, pain mgt- Dr Rene covering over the weekend.
[2017-04-11] MEDS ORDERED: OXYC-57 PO (07:22)
--- NOTE | 2017-04-11 07:25 | Discharge Instructions ---
Discharge Instructions Date of Service Apr 11, 2017. Admission Reason for Admission: Pneumothorax Discharge Discharge Diagnosis / Problem: rib fractures Discharge Goals Goal(s): Decrease discomfort Activity Recommendations Activity Limitations: as noted below Lifting Limitations: no more than 10 pounds Shower/Bathe: no limitations Driving or Machine Use: if not taking Percocet . Instructions / Follow-Up Instructions / Follow-Up Follow-up with your PCP within [address] Rodriguez office [phone] for any questions or concerns Current Hospital Diet Patient's current hospital diet: Regular Diet Discharge Diet Recommended Diet: Regular Diet Pending Studies Studies pending at discharge: no Laboratory Results Hemoglobin A1c Test 04/11/17 05:44 Range/Units Estimated Average Glucose 140 mg/dl Hemoglobin A1c 6.5 H 4.5-5.6 % Medical Emergencies . Who to Call and When: Medical Emergencies: If at any time you feel your situation is an emergency, please call 911 immediately. . Non-Emergent Contact Non-Emergency issues call your: Primary Care Provider Call Non-Emergent contact if: your pain is not controlled . "Provider Documentation" section prepared by Giovanni Perkins. . VTE Core Measure Inpt VTE Proph given/why not?: SCD's [place] Drug Monitoring Program Search Results: no issues identified
--- NOTE | 2017-04-11 07:48 | DIAGNOSTIC IMAGING REPORT ---
CHEST ONE VIEW PORTABLE CLINICAL HISTORY: multiple rib fracture , small pneumo/hemothorax COMPARISON STUDY: 04/10/2017 FINDINGS: Multiple left-sided rib fractures. The pneumothorax seen on a CT evaluation is not easily appreciated on routine imaging studies. Mild right basilar subsegmental atelectasis. No significant right-sided pneumothorax. No evidence for cardiac enlargement. Some progressive volume loss medial right cardiophrenic angle. IMPRESSION: 1. Multiple left-sided rib fractures. 2. Pneumothorax based on patient's prior CT is not seen by plain film criteria. 3. Subsegmental atelectasis right base. The above report was generated using voice recognition software. It may contain grammatical, syntax or spelling errors. Electronically signed by: Reji Sanchez M.D. 04/11/2017 7:47 AM Dictated Date/Time: 04/11/2017 7:37 AM
[2017-04-11] MEDS: CANDESARTAN 8 MG TAB PO SCH (08:31)
[2017-04-11] MEDS: METOPROLOL TARTRATE 100 MG TAB PO SCH (08:32)
[2017-04-11] MEDS: TOPIRAMATE 25 MG TAB PO SCH (08:32)
[2017-04-11] MEDS: MULTIVITAMIN TAB PO SCH (08:32)
[2017-04-11] MEDS: PANTOprazole SOD 40 MG TAB PO SCH (08:32)
[2017-04-11] MEDS: VENLAFAXINE HCL XR 150 MG CAPXR PO SCH (08:32)
[2017-04-11] MEDS: THIAMINE HCL 100 MG TAB PO SCH (08:32)
[2017-04-11] MEDS: HYDROCHLOROTHIAZIDE 25 MG TAB PO SCH (08:32)
[2017-04-11] MEDS: LIDODERM (LIDOCAINE) PATCH 5% TD SCH (08:33)
[2017-04-11] MEDS: INSULIN ASPART 100 UNITS/ML 3 ML PEN SC SCH ×4 (08:40→20:39)
[2017-04-11] MEDS: OXYCODONE/ACETAMINOPHEN 5-325 TAB PO PRN ×3 (09:22→21:34)
--- NOTE | 2017-04-11 10:02 | PULMONARY PROGRESS NOTE ---
DATE: 04/11/2017 DATE: 04/11/2017 TIME: 9:25 a.m. SUBJECTIVE: The patient states that she feels about the same. She is still bothered by the pain. She has shortness of breath at times when she has the pain. The pain medicines do help. She is not coughing much. OBJECTIVE: GENERAL: The patient appeared comfortable. VITAL SIGNS: Temperature is 36.7. Her only fever was at the time of her initial presentation. The heart rate was 75 per minute. The rhythm is regular. Blood pressure 116/80. CHEST: Respiratory rate is 18 breaths per minute. She still has splinting. The breath sounds were clear but definitely diminished, especially in the area of the left lung base. Oxygen saturation on 2 liters was 96%. EXTREMITIES: Showed no edema. LABORATORY DATA: White count today is 8.79. Hemoglobin was decreased down to 12.9. Previously was 15.5. Electrolytes show sodium 135, potassium 3.5, chloride 101, bicarbonate 30. BUN is 11 with a creatinine of 0.64. Magnesium was slightly decreased at 1.7. The patient had a chest x-ray this morning. One cannot visualize on the plain x-ray pneumothorax. She has multiple left-sided rib fractures. There are still hypoventilatory changes at the bases. The visualization of the right hemidiaphragm is not as good as yesterday. IMPRESSIONS: 1. Multiple left rib fractures. 2. Tiny left pneumothorax. 3. Atelectasis, right lung base. COMMENTS: The patient clinically seems fairly stable. I would give her a trial off of oxygen and see if she still needs oxygen. Would encourage ambulation and activity. I had her do the incentive spirometry for me. She could get up to about 900. I explained to her, she needs to do this every 1-2 hours. Overall, her respiratory status has been stable thus far. Would recommend upon discharge that she can continue to do the incentive spirometry regularly for at least 1-2 weeks or until she is back to baseline.
[2017-04-11] MEDS ORDERED: CYCLOBENZAPRINE HCL 5 MG TAB PO PRN (11:45)
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
[2017-04-11] MEDS: ATORVASTATIN 20 MG TAB PO SCH (20:40)
[2017-04-11] MEDS: TRAZODONE HCL 100 MG TAB PO SCH (20:40)
[2017-04-11] MEDS: MAGNESIUM OXIDE 400 MG TAB PO SCH (21:31)
[2017-04-12] VITALS (10 sets, daily range): BP systolic 77–106; BP diastolic 52–75; PULSE 74–103; TEMP 36.6–37.5; O2SAT 90–97
[2017-04-12] MEDS: HYDROmorphone INJ 1 MG/ML SYR IV PRN ×3 (00:11→10:06)
[2017-04-12] MEDS: OXYCODONE/ACETAMINOPHEN 5-325 TAB PO PRN ×4 (03:47→20:36)
[2017-04-12 06:48] LABS: CREATININE 0.82 mg/dl (0.60-1.20); MAGNESIUM 1.7 mg/dl (1.8-2.4); POTASSIUM 3.3 mmol/L (3.5-5.1)
[2017-04-12] MEDS: TOPIRAMATE 25 MG TAB PO SCH (07:56)
[2017-04-12] MEDS: VENLAFAXINE HCL XR 150 MG CAPXR PO SCH (07:57)
[2017-04-12] MEDS: MULTIVITAMIN TAB PO SCH (08:00)
[2017-04-12] MEDS: PANTOprazole SOD 40 MG TAB PO SCH (08:00)
[2017-04-12] MEDS: THIAMINE HCL 100 MG TAB PO SCH (08:00)
[2017-04-12] MEDS: MAGNESIUM OXIDE 400 MG TAB PO SCH (08:01)
[2017-04-12] MEDS: LIDODERM (LIDOCAINE) PATCH 5% TD SCH (08:01)
--- NOTE | 2017-04-12 09:02 | Surgery Progress Note ---
Surgery Progress Note Date of Service Apr 12, 2017. Subjective Post OP Day: HD 3 + complaints (pain in left chest and arm), + flatus, + pain controlled, + diet Objective Vital Signs: Date Time Temp Pulse Resp B/P (MAP) Pulse Ox O2 Delivery O2 Flow Rate FiO2 04/12/17 07:54 36.6 90 20 99/67 (78) 91 Nasal Cannula 2.0 04/12/17 00:00 95 Room Air 04/11/17 23:49 36.9 74 16 104/73 (83) 90 Room Air 04/11/17 20:18 36.4 77 18 97/66 (76) 91 Room Air 04/11/17 20:00 95 Room Air 04/11/17 18:22 82 103/70 (81) 90 Room Air 04/11/17 16:00 95 Room Air 04/11/17 15:26 69 98/69 (79) 04/11/17 15:25 36.6 69 18 91/64 (73) 90 04/11/17 13:28 93 Room Air 04/11/17 13:05 69 90/60 (70) 04/11/17 12:00 Nasal Cannula 2.0 04/11/17 11:31 36.8 63 18 89/60 (70) 97 Nasal Cannula 2.0 General Appearance: WD/WN, no apparent distress Head: normocephalic, atraumatic Neck: supple, trachea midline Respiratory/Chest: lungs clear, + decreased breath sounds (left) Cardiovascular: regular rate, rhythm, no edema, no murmur Abdomen: normal bowel sounds, non tender, non distended, soft Extremities: non-tender, no pedal edema Laboratory Results: Results Past 24 Hours Test 04/11/17 11:19 04/11/17 16:03 04/11/17 20:28 04/12/17 05:56 Range/Units Bedside Glucose 158 170 125 70-90 mg/dl Sodium Level 137 136-145 mmol/L Potassium Level 3.3 3.5-5.1 mmol/L Chloride Level 101 98-107 mmol/L Carbon Dioxide Level 29 21-32 mmol/L Anion Gap 7.0 3-11 mmol/L Blood Urea Nitrogen 11 7-18 mg/dl Creatinine 0.82 0.60-1.20 mg/dl Est Creatinine Clear Calc Drug Dose 95.7 ml/min Estimated GFR () 98.1 Estimated GFR (Non- 84.6 BUN/Creatinine Ratio 13.0 10-20 Random Glucose 193 70-99 mg/dl Calcium Level 9.0 8.5-10.1 mg/dl Magnesium Level 1.7 1.8-2.4 mg/dl Test 04/12/17 07:38 Range/Units Bedside Glucose 196 70-90 mg/dl Diagnostic Interpretation: CHEST ONE VIEW PORTABLE CLINICAL HISTORY: multiple rib fracture , small pneumo/hemothorax COMPARISON STUDY: 04/10/2017 FINDINGS: Multiple left-sided rib fractures. The pneumothorax seen on a CT evaluation is not easily appreciated on routine imaging studies. Mild right basilar subsegmental atelectasis. No significant right-sided pneumothorax. No evidence for cardiac enlargement. Some progressive volume loss medial right cardiophrenic angle. IMPRESSION: 1. Multiple left-sided rib fractures. Assessment & Plan left rib fractures -no residual PTX on last CXR -pain contol OK -diaschrge once pain controlled on oral meds
[2017-04-12] MEDS: CANDESARTAN 8 MG TAB PO SCH (09:17)
[2017-04-12] MEDS: METOPROLOL TARTRATE 100 MG TAB PO SCH (09:17)
[2017-04-12] MEDS: HYDROCHLOROTHIAZIDE 25 MG TAB PO SCH (09:17)
[2017-04-12] MEDS: INSULIN ASPART 100 UNITS/ML 3 ML PEN SC SCH ×4 (09:21→20:35)
[2017-04-12] MEDS ORDERED: GABAPENTIN 600MG Q12H DOSE PO SCH (10:00)
[2017-04-12] MEDS ORDERED: POTASSIUM CHLORIDE 10 MEQ TABCR PO ONE (10:30)
[2017-04-12] MEDS ORDERED: MAGNESIUM SULFATE 1GM / D5W 1 GM in PREMIXED IN D5W 100 ML IV SCH (10:30)
[2017-04-12] MEDS: POLYETHYLENE (MIRALAX) 17 GM PACK PO SCH (13:03)
[2017-04-12] MEDS: DOCUSATE SODIUM 100 MG CAP PO SCH ×2 (13:03→20:38)
[2017-04-12] MEDS: NICOTINE 21 MG/24 HR TDSY TD SCH (13:03)
[2017-04-12] MEDS ORDERED: LVQ500 PO (15:16)
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
[2017-04-12] MEDS ORDERED: LEVOFLOXACIN 500 MG TAB PO SCH (15:45)
[2017-04-12] MEDS: ATORVASTATIN 20 MG TAB PO SCH (20:37)
[2017-04-12] MEDS ORDERED: TRAZODONE HCL 100 MG TAB PO PRN (21:00)
[2017-04-12] MEDS ORDERED: BISACODYL 5 MG TABEC PO SCH (21:00)
[2017-04-13] VITALS: O2SAT 95
[2017-04-13] MEDS: OXYCODONE/ACETAMINOPHEN 5-325 TAB PO PRN ×3 (01:57→10:27)
[2017-04-13 04:29] VITALS: BP 146/75; PULSE 81; TEMP 36.9; O2SAT 91
[2017-04-13 07:36] VITALS: BP 95/66; PULSE 96; TEMP 37; O2SAT 90
[2017-04-13] MEDS ORDERED: ALBUT/IPRATROP 3MG/0.5MG NEB 3 ML VIAL INH SCH (08:00)
[2017-04-13 08:30] LABS: CALCIUM 9.2 mg/dl (8.5-10.1); CREATININE 0.75 mg/dl (0.60-1.20); MAGNESIUM 1.9 mg/dl (1.8-2.4); POTASSIUM 3.6 mmol/L (3.5-5.1)
[2017-04-13] MEDS: VENLAFAXINE HCL XR 150 MG CAPXR PO SCH (08:30)
[2017-04-13] MEDS ORDERED: ALBUT/IPRATROP 3MG/0.5MG NEB 3 ML VIAL INH PRN (08:30)
[2017-04-13] MEDS: MULTIVITAMIN TAB PO SCH (08:30)
[2017-04-13] MEDS: PANTOprazole SOD 40 MG TAB PO SCH (08:30)
[2017-04-13] MEDS: THIAMINE HCL 100 MG TAB PO SCH (08:30)
[2017-04-13] MEDS: DOCUSATE SODIUM 100 MG CAP PO SCH (08:31)
[2017-04-13] MEDS: METOPROLOL TARTRATE 100 MG TAB PO SCH (08:32)
[2017-04-13] MEDS: CANDESARTAN 8 MG TAB PO SCH (08:33)
[2017-04-13] MEDS: TOPIRAMATE 25 MG TAB PO SCH (08:33)
[2017-04-13] MEDS: INSULIN ASPART 100 UNITS/ML 3 ML PEN SC SCH (08:37)
--- NOTE | 2017-04-13 08:37 | PULMONARY PROGRESS NOTE ---
DATE: 04/13/2017 TIME: 7:45 a.m. SUBJECTIVE: The patient is generally feeling better. Her pain, she rates as about 7, but she feels it is improved. She is short of breath with exertion. She states that when she walked in the [place] yesterday her saturations went down to the low 80s. She has been working on the incentive spirometry. I had her do it for me and she was able to do approximately 1125 mL. Nursing reported that she had some blood streaked mucus, but they did not know with certainty if someone witnessed that or not. The patient tells me her mucus was green. Yesterday, she had been started on levofloxacin. OBJECTIVE: GENERAL: The patient looks fairly comfortable. VITAL SIGNS: Temperature last evening went up to 37.5. This morning's temperature is 37. Heart rate is 96 per minute. The rhythm is regular. Blood pressure 95/66. LUNGS: Lung lowe revealed decreased breath sounds. She is splinting. Her respiratory rate was 18 breaths per minute. Oxygen saturation on room air was 90%. EXTREMITIES: Showed no cyanosis, clubbing or edema. Chemistries are pending for today. IMPRESSIONS: 1. Multiple left-sided rib fractures. 2. Tiny left pneumothorax. 3. Right lung atelectasis. COMMENTS AND RECOMMENDATIONS: The patient is doing very well overall, would try to increase her activity and ambulation and would continue with the incentive spirometry. Since she has been having borderline low saturations and in light of the secretion production, we will order some neb treatments which likely she will need only for a day or two. She is considered stable from the respiratory end if discharge was desired soon. She would need to have a 2-step to determine if she needs oxygen at home, at least in the short run. We will sign off for now. I will be happy to see her again if requested.
[2017-04-13] MEDS: LIDODERM (LIDOCAINE) PATCH 5% TD SCH (08:40)
[2017-04-13] MEDS: POLYETHYLENE (MIRALAX) 17 GM PACK PO SCH (08:40)
[2017-04-13] MEDS: NICOTINE 21 MG/24 HR TDSY TD SCH (08:40)
[2017-04-13] MEDS: HYDROCHLOROTHIAZIDE 25 MG TAB PO SCH (09:00)
--- NOTE | 2017-04-13 09:09 | Surgery Progress Note ---
Surgery Progress Note Date of Service Apr 13, 2017. Subjective Feels better. Has been needing oxygen with ambulating - states oxygen saturations went down into low 80s. Pain controlled. Objective Vital Signs: Date Time Temp Pulse Resp B/P (MAP) Pulse Ox O2 Delivery O2 Flow Rate FiO2 04/13/17 07:36 37.0 96 16 95/66 (76) 90 Room Air 04/13/17 00:00 95 Room Air 04/12/17 22:48 37.5 103 16 101/71 (81) 94 Nasal Cannula 2.0 04/12/17 20:00 95 Room Air 04/12/17 16:00 Room Air 04/12/17 15:55 36.8 84 16 103/68 (80) 90 Room Air 04/12/17 15:49 96/66 (76) 04/12/17 14:34 91 18 78/52 (61) 96 Room Air 04/12/17 14:24 74 14 77/53 (61) 97 Nasal Cannula 2.0 General Appearance: WD/WN, no apparent distress Respiratory/Chest: no accessory muscle use, + decreased breath sounds (left side) Cardiovascular: regular rate, rhythm Laboratory Results: Results Past 24 Hours Test 04/12/17 11:23 04/12/17 16:14 04/12/17 20:08 04/13/17 06:46 Range/Units Bedside Glucose 166 150 208 70-90 mg/dl Sodium Level 137 136-145 mmol/L Potassium Level 3.6 3.5-5.1 mmol/L Chloride Level 102 98-107 mmol/L Carbon Dioxide Level 27 21-32 mmol/L Anion Gap 8.0 3-11 mmol/L Blood Urea Nitrogen 9 7-18 mg/dl Creatinine 0.75 0.60-1.20 mg/dl Est Creatinine Clear Calc Drug Dose 104.6 ml/min Estimated GFR () 109.2 Estimated GFR (Non- 94.3 BUN/Creatinine Ratio 12.0 10-20 Random Glucose 163 70-99 mg/dl Calcium Level 9.2 8.5-10.1 mg/dl Magnesium Level 1.9 1.8-2.4 mg/dl Test 04/13/17 07:33 Range/Units Bedside Glucose 159 70-90 mg/dl Assessment & Plan rib fractures and small left pneumothorax, now resolved. Pain controlled. Stable for discharge from surgical standpoint if two step for home oxygen has been done and home oxygen set up if needed.
[2017-04-13 10:02] VITALS: BP 95/66; PULSE 96; TEMP 37; O2SAT 90
[2017-04-13] MEDS ORDERED: GABAPENTIN 600MG X1 DOSE PO SCH (22:00)
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
== END 2017-04-13 11:48 | disposition home or self-care (01) | DRG 183 ==
LOC: C.EDB 02:37 → C.MED 05:15 → EDBEDREQ 05:19 → ENRESERV 05:35
PROVIDERS: ADMIT Surgery; ATTEND Surgery
DX: S22.42XA Multiple fractures of ribs, left side, initial encounter for closed fracture (principal); S27.2XXA Traumatic hemopneumothorax, initial encounter; T74.11XA Adult physical abuse, confirmed, initial encounter; J98.11 Atelectasis; Y04.2XXA Assault by strike against or bumped into by another person, initial encounter; Y07.01 Husband, perpetrator of maltreatment and neglect; F10.129 Alcohol abuse with intoxication, unspecified; Y90.8 Blood alcohol level of 240 mg/100 ml or more; E11.9 Type 2 diabetes mellitus without complications; I10 Essential (primary) hypertension; F32.9 Major depressive disorder, single episode, unspecified; F41.9 Anxiety disorder, unspecified; E78.5 Hyperlipidemia, unspecified; K21.9 Gastro-esophageal reflux disease without esophagitis; F12.90 Cannabis use, unspecified, uncomplicated; F17.200 Nicotine dependence, unspecified, uncomplicated; Z79.84 Long term (current) use of oral hypoglycemic drugs; Z79.899 Other long term (current) drug therapy; Z82.49 Family history of ischemic heart disease and other diseases of the circulatory system; Z83.3 Family history of diabetes mellitus; R05 Cough

== ENCOUNTER 2021-02-10 14:22 | Inpatient (IN) ==
--- NOTE | 2021-02-10 14:57 | Emergency Department Note ---
History of Present Illness General Chief complaint: Confusion Stated complaint: MEMORY ISSUES X1WK,LESS EMOTION THAN NORMAL Time Seen by Provider: 02/10/21 14:36 Source: patient and family History of Present Illness Provider complaint: Confusion Onset (ago): week(s) Location: head Pain Consistency: + constant Quality: + other (Confusion and memory issues) Relieved By: + none Associated symptoms: + confusion; no chest pain, no cough, no fever/chills, no headaches, no nausea/vomiting or no shortness of breath This is a 50-year-old female who presents with confusion and memory issues for the past week. They started gradually according to her son but have progressively gotten worse. The patient initially forgot to put her seatbelt on and would forget to turn the head lights on when she is driving at night. She was once wearing her robe and then asked her son where her robe was. When he told her that she was wearing it she did not believe him. This morning she was making coffee and instead of putting the water in the reservoir she put it over the filter. She makes coffee every morning and has never done this in the past. She will sometimes stare into space and take a long time to answer any questions. She denies any visual or auditory hallucinations. She denies any headache, fever, chest pain, shortness of breath, cough or cold symptoms, abdominal pain, diarrhea or urinary symptoms. She states that her taste is somewhat off and everything tastes bad to her. She has been eating less. Her doctor put her on doxycycline about a week and a half ago because she had a partially positive Lyme test. Home Medications Medication Instructions Recorded Confirmed Type hydrochlorothiazide 12.5 mg tablet 12.5 mg PO DAILY 05/19/18 02/10/21 History insulin glargine 100 unit/mL 38 unit SUBCUT HS 05/19/18 02/10/21 History subcutaneous solution lactobacillus combination no.4 3 3,000 mmu cells PO DAILY 05/19/18 02/10/21 History billion cell capsule (Probiotic) losartan 25 mg tablet 0 mg PO DAILY 05/19/18 02/10/21 History metoprolol tartrate 50 mg tablet 50 mg PO BID 05/19/18 02/10/21 History omega 0-lzg-vkh-fish oil 1,000 mg 1 cap PO DAILY 05/19/18 02/10/21 History (120 mg-180 mg) capsule (Fish Oil) rosuvastatin 40 mg tablet (Crestor) 40 mg PO DAILY 05/19/18 02/10/21 History buspirone 10 mg tablet 10 mg PO BID 02/10/21 02/10/21 History doxycycline hyclate 100 mg capsule 100 mg PO BID 02/10/21 02/10/21 History meloxicam 15 mg tablet 15 mg PO DAILY 02/10/21 02/10/21 History Allergies Allergy/AdvReac Type Severity Reaction Status Date / Time hydrocodone Allergy Mild RASH Unverified 02/10/21 15:42 lisinopril Allergy Mild SHORTNESS Unverified 02/10/21 15:42 OF BREATH Past Med/Surg History Medical History (Updated 02/10/21 @ 19:19 by He Patrick MD) Anxiety disorder Depression Diabetes mellitus Displacement of lumbar intervertebral disc without myelopathy Dyslipidemia GERD (gastroesophageal reflux disease) HTN (hypertension) Migraine Osteoarthritis Pneumothorax PTSD (post-traumatic stress disorder) Surgical History H/O tubal ligation History of cholecystectomy Family History Other Heart disease Social History Smoking Status: Current every day smoker Tobacco Type: Cigarettes Preferred Language: Romanian Feels Safe at Home: Yes Review of Systems See HPI for pertinent positives & negatives. and A total of 10 systems reviewed and were otherwise negative Physical Exam Vital Signs Vital Signs - 24 hr 02/10/21 14:26 02/10/21 15:07 02/10/21 15:28 Temperature 37.1 C Temperature Source Oral Pulse Rate 124 H 101 H Pulse Rate from SpO2 Sensor 100 H Respiratory Rate 18 14 Blood Pressure 142/100 H 145/97 H Blood Pressure Mean 114 113 Pulse Oximetry 96 97 Oxygen Delivery Method Room Air Room Air Room Air Sepsis Recent Fever Within 48 Hours No Sepsis New/Unexplained Change in Mental Status Yes Sepsis Action Taken by Nursing No Action Required 02/10/21 15:31 02/10/21 16:00 02/10/21 16:32 Temperature Temperature Source Pulse Rate 103 H 99 H 100 H Pulse Rate from SpO2 Sensor 99 H Respiratory Rate 18 15 23 Blood Pressure 138/106 H Blood Pressure Mean 116 Pulse Oximetry 99 Oxygen Delivery Method Room Air Room Air Sepsis Recent Fever Within 48 Hours Sepsis New/Unexplained Change in Mental Status Sepsis Action Taken by Nursing 02/10/21 17:02 02/10/21 17:30 02/10/21 18:00 Temperature Temperature Source Pulse Rate 98 H Pulse Rate from SpO2 Sensor 94 H 101 H 96 H Respiratory Rate 20 Blood Pressure 145/89 H 127/92 149/112 H Blood Pressure Mean 107 103 124 Pulse Oximetry 98 98 98 Oxygen Delivery Method Room Air Room Air Room Air Sepsis Recent Fever Within 48 Hours Sepsis New/Unexplained Change in Mental Status Sepsis Action Taken by Nursing 02/10/21 19:02 Temperature Temperature Source Pulse Rate 93 H Pulse Rate from SpO2 Sensor Respiratory Rate 15 Blood Pressure Blood Pressure Mean Pulse Oximetry Oxygen Delivery Method Sepsis Recent Fever Within 48 Hours Sepsis New/Unexplained Change in Mental Status Sepsis Action Taken by Nursing Constitutional: Vital signs reviewed. Eyes: Pupils are equal round reactive to light. Conjunctiva are noninjected. ENT: Pharynx is clear without erythema or exudate. Mucous membranes are moist. Neck supple without meningeal signs. Respiratory: Clear to auscultation bilaterally. Breath sounds are equal bilat erally. Cardiovascular: Regular rate and rhythm. No rubs or gallops. GI: Soft, nondistended and nontender. Bowel sounds are present. Musculoskeletal: No peripheral edema. No lower extremity tenderness. Integumentary: No cyanosis. or jaundice. Neurologic: The patient is awake and alert. She is oriented to person only. She knows she is in the hospital but does not know what city she is in. She cannot tell you the year or who the president is. Cranial nerves II-XII are intact. Motor is 5 out of 5 all extremities. Sensation is intact to light touch all extremities. Normal speech. No pronator drift. No limb ataxia. Normal gait. Psychiatric: Flat affect. Procedures Free Text Procedures Procedure note: I did obtain informed consent from the patient's and son for lumbar puncture. I did discuss indications, possible complications and the consequences as well as possible alternatives with the patient and her family. I did answer all of her questions regarding the procedure. They did consent to the procedure. I did use sterile technique and with careful to maintain a sterile field. I did clean the skin with Betadine. I did locate the L3-L4 interspace. I did use lidocaine 1% for local anesthesia. I did infiltrate approximately 2 cc. I did insert a 20 -gauge 3.5-inch spinal needle drawing out clear CSF. There were no complications and the patient tolerated the procedure well. The CSF was sent to lab for evaluation. Course Administered Medications Sodium Chloride (Nss 1000ml) 1,000 mls @ 999 mls/hr IV .Q1H1M ONE Stop: 02/10/21 19:43 Last Admin: 02/10/21 19:09 Dose: 999 mls/hr Documented by: [id number] Discontinued Medications Ioversol (Optiray 320 125ml) 119 ml IV ONCE ONE Stop: 02/10/21 16:03 Last Admin: 02/10/21 16:02 Dose: 1 ml Documented by: [id number] Medical Decision Making Differential Diagnosis Dementia, stroke, psychiatric illness, drug or alcohol abuse, metabolic derangement, intracranial mass, CVA, encephalopathy Medical Records Attestation: I reviewed the patient's medical records. I did perform a limited focused review of portions of the patient's old chart on the electronic medical record. The patient has had no recent pertinent visits to this hospital. Records from the [facility] system demonstrate an abnormal Lyme disease antibody screen but a negative Western blot Lyme test both IgG and IgM this was performed on January 29. She was seen by her doctor on January 29 and had complained of right arm pain and numbness as well as some weakness. She did have a CT of her head on February 05 which was unremarkable. Home Medications Current Medication List: was personally reviewed by me Laboratory Data Attestation: I reviewed the patient's lab results. Result diagrams: 02/10/21 15:24 02/10/21 15:24 Lab Results 02/10/21 02/10/21 02/10/21 Range/Units 15:22 15:24 15:24 WBC 9.86 (4.8-10.8) K/uL RBC 4.36 (4.2-5.4) M/uL Hgb 14.6 (12.0-16.0) g/dL Hct 41.8 (37-47) % MCV 95.9 (80-100) fL MCH 33.5 (25-34) pg MCHC 34.9 (32-36) g/dL RDW Std Deviation 45.8 (36.4-46.3) fL RDW Coeff of Pietro 13.2 (11.5-14.5) % Plt Count 293 (130-400) K/uL MPV 9.7 (7.4-10.4) fL Immature Gran % (Auto) 0.1 % Neut % (Auto) 61.4 % Lymph % (Auto) 32.7 % [place] % (Auto) 4.8 % Eos % (Auto) 0.8 % Baso % (Auto) 0.2 % Neut # (Auto) 6.06 (1.4-6.5) K/uL Lymph # (Auto) 3.22 (1.2-3.4) K/uL [place] # (Auto) 0.47 (0.11-0.59) K/uL Eos # (Auto) 0.08 (0-0.5) K/uL Baso # (Auto) 0.02 (0-0.2) K/uL Immature Gran # (Auto) 0.01 (0.00-0.02) K/uL PT (9.0-12.0) Seconds INR (0.9-1.1) APTT (21.0-31.0) Seconds PTT Ratio Sodium (136-145) mmol/L Potassium (3.5-5.1) mmol/L Chloride (98-107) mmol/L Carbon Dioxide (21-32) mmol/L Anion Gap (3-11) BUN (7-18) mg/dl Creatinine (0.6-1.2) mg/dl Est Cr Clr Drug Dosing ml/min Est GFR ( Amer) ml/min Est GFR (Non-Af Amer) ml/min BUN/Creatinine Ratio (10-20) Glucose (70-99) mg/dl POC Glucose 138 H (70-99) mg/dl Calcium (8.5-10.1) mg/dl Magnesium (1.8-2.4) mg/dl Total Bilirubin (0.2-1) mg/dl AST (15-37) U/L ALT (12-78) U/L Alkaline Phosphatase (45-117) U/L Troponin I (0-0.045) ng/ml Total Protein (6.4-8.2) gm/dl Albumin (3.4-5.0) gm/dl Globulin (2.5-4.0) gm/dl Albumin/Globulin Ratio (0.9-2) Fluid Comment CSF Appearance CSF Color Xanthrochromic CSF WBC (0-5) /uL CSF RBC (0-) /uL CSF Cell Count Tube # CSF Glucose (40-70) mg/dl CSF Total Protein (15-45) mg/dl Salicylates 5.5 (2.8-20) mg/dl Acetaminophen < 2 L (10-30) ug/ml Ethyl Alcohol mg/dL (0-3) mg/dl Anaplasma Smear See Comment Lyme Disease IgG Ab (Negative) Lyme Disease IgM Ab (Negative) COVID-19 Eval Order SARS-CoV-2 (PCR) (Negative) 02/10/21 02/10/21 02/10/21 Range/Units 15:24 15:24 15:24 WBC (4.8-10.8) K/uL RBC (4.2-5.4) M/uL Hgb (12.0-16.0) g/dL Hct (37-47) % MCV (80-100) fL MCH (25-34) pg MCHC (32-36) g/dL RDW Std Deviation (36.4-46.3) fL RDW Coeff of Pietro (11.5-14.5) % Plt Count (130-400) K/uL MPV (7.4-10.4) fL Immature Gran % (Auto) % Neut % (Auto) % Lymph % (Auto) % [place] % (Auto) % Eos % (Auto) % Baso % (Auto) % Neut # (Auto) (1.4-6.5) K/uL Lymph # (Auto) (1.2-3.4) K/uL [place] # (Auto) (0.11-0.59) K/uL Eos # (Auto) (0-0.5) K/uL Baso # (Auto) (0-0.2) K/uL Immature Gran # (Auto) (0.00-0.02) K/uL PT 10.2 (9.0-12.0) Seconds INR 1.0 (0.9-1.1) APTT 24.6 (21.0-31.0) Seconds PTT Ratio 0.9 Sodium 139 (136-145) mmol/L Potassium 3.1 L (3.5-5.1) mmol/L Chloride 103 (98-107) mmol/L Carbon Dioxide 26 (21-32) mmol/L Anion Gap 10.0 (3-11) BUN 16 (7-18) mg/dl Creatinine 0.86 (0.6-1.2) mg/dl Est Cr Clr Drug Dosing 86.0 ml/min Est GFR ( Amer) 90.0 ml/min Est GFR (Non-Af Amer) 77.7 ml/min BUN/Creatinine Ratio 18.9 (10-20) Glucose 138 H (70-99) mg/dl POC Glucose (70-99) mg/dl Calcium 9.8 (8.5-10.1) mg/dl Magnesium 1.7 L (1.8-2.4) mg/dl Total Bilirubin 0.8 (0.2-1) mg/dl AST 50 H (15-37) U/L ALT 65 (12-78) U/L Alkaline Phosphatase 98 (45-117) U/L Troponin I < 0.015 (0-0.045) ng/ml Total Protein 7.9 (6.4-8.2) gm/dl Albumin 3.8 (3.4-5.0) gm/dl Globulin 4.1 H (2.5-4.0) gm/dl Albumin/Globulin Ratio 0.9 (0.9-2) Fluid Comment CSF Appearance CSF Color Xanthrochromic CSF WBC (0-5) /uL CSF RBC (0-) /uL CSF Cell Count Tube # CSF Glucose (40-70) mg/dl CSF Total Protein (15-45) mg/dl Salicylates (2.8-20) mg/dl Acetaminophen (10-30) ug/ml Ethyl Alcohol mg/dL < 3.0 (0-3) mg/dl Anaplasma Smear Lyme Disease IgG Ab (Negative) Lyme Disease IgM Ab (Negative) COVID-19 Eval Order SARS-CoV-2 (PCR) (Negative) 02/10/21 02/10/21 02/10/21 Range/Units 15:24 15:25 15:25 WBC (4.8-10.8) K/uL RBC (4.2-5.4) M/uL Hgb (12.0-16.0) g/dL Hct (37-47) % MCV (80-100) fL MCH (25-34) pg MCHC (32-36) g/dL RDW Std Deviation (36.4-46.3) fL RDW Coeff of Pietro (11.5-14.5) % Plt Count (130-400) K/uL MPV (7.4-10.4) fL Immature Gran % (Auto) % Neut % (Auto) % Lymph % (Auto) % [place] % (Auto) % Eos % (Auto) % Baso % (Auto) % Neut # (Auto) (1.4-6.5) K/uL Lymph # (Auto) (1.2-3.4) K/uL [place] # (Auto) (0.11-0.59) K/uL Eos # (Auto) (0-0.5) K/uL Baso # (Auto) (0-0.2) K/uL Immature Gran # (Auto) (0.00-0.02) K/uL PT (9.0-12.0) Seconds INR (0.9-1.1) APTT (21.0-31.0) Seconds PTT Ratio Sodium (136-145) mmol/L Potassium (3.5-5.1) mmol/L Chloride (98-107) mmol/L Carbon Dioxide (21-32) mmol/L Anion Gap (3-11) BUN (7-18) mg/dl Creatinine (0.6-1.2) mg/dl Est Cr Clr Drug Dosing ml/min Est GFR ( Amer) ml/min Est GFR (Non-Af Amer) ml/min BUN/Creatinine Ratio (10-20) Glucose (70-99) mg/dl POC Glucose (70-99) mg/dl Calcium (8.5-10.1) mg/dl Magnesium (1.8-2.4) mg/dl Total Bilirubin (0.2-1) mg/dl AST (15-37) U/L ALT (12-78) U/L Alkaline Phosphatase (45-117) U/L Troponin I (0-0.045) ng/ml Total Protein (6.4-8.2) gm/dl Albumin (3.4-5.0) gm/dl Globulin (2.5-4.0) gm/dl Albumin/Globulin Ratio (0.9-2) Fluid Comment CSF Appearance CSF Color Xanthrochromic CSF WBC (0-5) /uL CSF RBC (0-) /uL CSF Cell Count Tube # CSF Glucose (40-70) mg/dl CSF Total Protein (15-45) mg/dl Salicylates (2.8-20) mg/dl Acetaminophen (10-30) ug/ml Ethyl Alcohol mg/dL (0-3) mg/dl Anaplasma Smear Lyme Disease IgG Ab Negative (Negative) Lyme Disease IgM Ab Positive A (Negative) COVID-19 Eval Order Covid19 at [facility] SARS-CoV-2 (PCR) NEGATIVE (Negative) 02/10/21 Range/Units 18:38 WBC (4.8-10.8) K/uL RBC (4.2-5.4) M/uL Hgb (12.0-16.0) g/dL Hct (37-47) % MCV (80-100) fL MCH (25-34) pg MCHC (32-36) g/dL RDW Std Deviation (36.4-46.3) fL RDW Coeff of Pietro (11.5-14.5) % Plt Count (130-400) K/uL MPV (7.4-10.4) fL Immature Gran % (Auto) % Neut % (Auto) % Lymph % (Auto) % [place] % (Auto) % Eos % (Auto) % Baso % (Auto) % Neut # (Auto) (1.4-6.5) K/uL Lymph # (Auto) (1.2-3.4) K/uL [place] # (Auto) (0.11-0.59) K/uL Eos # (Auto) (0-0.5) K/uL Baso # (Auto) (0-0.2) K/uL Immature Gran # (Auto) (0.00-0.02) K/uL PT (9.0-12.0) Seconds INR (0.9-1.1) APTT (21.0-31.0) Seconds PTT Ratio Sodium (136-145) mmol/L Potassium (3.5-5.1) mmol/L Chloride (98-107) mmol/L Carbon Dioxide (21-32) mmol/L Anion Gap (3-11) BUN (7-18) mg/dl Creatinine (0.6-1.2) mg/dl Est Cr Clr Drug Dosing ml/min Est GFR ( Amer) ml/min Est GFR (Non-Af Amer) ml/min BUN/Creatinine Ratio (10-20) Glucose (70-99) mg/dl POC Glucose (70-99) mg/dl Calcium (8.5-10.1) mg/dl Magnesium (1.8-2.4) mg/dl Total Bilirubin (0.2-1) mg/dl AST (15-37) U/L ALT (12-78) U/L Alkaline Phosphatase (45-117) U/L Troponin I (0-0.045) ng/ml Total Protein (6.4-8.2) gm/dl Albumin (3.4-5.0) gm/dl Globulin (2.5-4.0) gm/dl Albumin/Globulin Ratio (0.9-2) Fluid Comment CSF Appearance Clear CSF Color Colorless Xanthrochromic No xanthochromia CSF WBC 2 (0-5) /uL CSF RBC 1 (0-) /uL CSF Cell Count Tube # 3 CSF Glucose 83 H (40-70) mg/dl CSF Total Protein 68.9 H (15-45) mg/dl Salicylates (2.8-20) mg/dl Acetaminophen (10-30) ug/ml Ethyl Alcohol mg/dL (0-3) mg/dl Anaplasma Smear Lyme Disease IgG Ab (Negative) Lyme Disease IgM Ab (Negative) COVID-19 Eval Order SARS-CoV-2 (PCR) (Negative) Imaging Data Attestation: I personally reviewed and interpreted this imaging study as follows: Radiologist's Impression: Head CT 02/10/21 14:52 CT angio neck with con, CT head/brain wo con Clinical Indication: [place] ^Stroke Like Symptoms . TECHNIQUE: Contiguous axial CT images of the head were acquired from the base of the skull to the vertex without intravenous contrast administration. CT angiography of the head and neck was performed following intravenous administration of iodinated contrast. Automated dose lowering techniques and/or adjustment according to patient size were utilized for this examination. Comparison: None available at the time of this dictation. FINDINGS: CT head: The brain is unremarkable. There is no acute intracranial hemorrhage or evidence of acute territorial infarction. No shift of the midline structures, mass effect, or extra-axial abnormalities are shown. Atherosclerotic calcifications are present in the intracranial segments of the internal carotid arteries. CTA Neck: A 3 vessel aortic arch is shown. Atherosclerotic plaque is present in the aortic arch and at the origin of the great vessels. There is no atherosclerotic plaque at the origins of the vertebral arteries. The common carotid, external carotid, cervical segments of the internal carotid arteries, and the cervical segments of the vertebral arteries are patent. There is no hemodynamically significant diameter stenosis or dissection present. The left vertebral artery is dominant. CTA Head: The anterior and posterior cerebral circulations are patent. No hemodynamically significant stenosis, aneurysm, dissection, or arteriovenous malformation is shown. Atherosclerotic disease is noted. Incidentally noted is origin of the right posterior cerebral artery. IMPRESSION: 1. No occlusion, hemodynamically significant stenosis, aneurysm, dissection, or arteriovenous malformation in the major intracranial arteries. 2. No occlusion, hemodynamically significant stenosis, or dissection in the major cervical arteries. 3. Visualized brain parenchyma is unremarkable. Assessment of stenosis of the internal carotid arteries is based on NASCET criteria. ACT 112: Negative or not required by law. Electronically signed by: Jacobo Whitney M.D. 02/10/2021 4:58 PM Head CTA 02/10/21 14:52 CT angio head w con Clinical Indication: [place] ^Stroke Like Symptoms . TECHNIQUE: Contiguous axial CT images of the head were acquired from the base of the skull to the vertex without intravenous contrast administration. CT angiography of the head and neck was performed following intravenous administration of iodinated contrast. Automated dose lowering techniques and/or adjustment according to patient size were utilized for this examination. Comparison: None available at the time of this dictation. FINDINGS: CT head: The brain is unremarkable. There is no acute intracranial hemorrhage or evidence of acute territorial infarction. No shift of the midline structures, mass effect, or extra-axial abnormalities are shown. Atherosclerotic calcifications are present in the intracranial segments of the internal carotid arteries. CTA Neck: A 3 vessel aortic arch is shown. Atherosclerotic plaque is present in the aortic arch and at the origin of the great vessels. There is no atherosclerotic plaque at the origins of the vertebral arteries. The common carotid, external carotid, cervical segments of the internal carotid arteries, and the cervical segments of the vertebral arteries are patent. There is no hemodynamically significant diameter stenosis or dissection present. The left vertebral artery is dominant. CTA Head: The anterior and posterior cerebral circulations are patent. No hemodynamically significant stenosis, aneurysm, dissection, or arteriovenous malformation is shown. Atherosclerotic disease is noted. Incidentally noted is origin of the right posterior cerebral artery. IMPRESSION: 1. No occlusion, hemodynamically significant stenosis, aneurysm, dissection, or arteriovenous malformation in the major intracranial arteries. 2. No occlusion, hemodynamically significant stenosis, or dissection in the major cervical arteries. 3. Visualized brain parenchyma is unremarkable. Assessment of stenosis of the internal carotid arteries is based on NASCET cr iteria. ACT 112: Negative or not required by law. Electronically signed by: Jacobo Whitney M.D. 02/10/2021 4:56 PM Neck CTA 02/10/21 14:52 CT angio neck with con, CT head/brain wo con Clinical Indication: [place] ^Stroke Like Symptoms . TECHNIQUE: Contiguous axial CT images of the head were acquired from the base of the skull to the vertex without intravenous contrast administration. CT angiography of the head and neck was performed following intravenous administration of iodinated contrast. Automated dose lowering techniques and/or adjustment according to patient size were utilized for this examination. Comparison: None available at the time of this dictation. FINDINGS: CT head: The brain is unremarkable. There is no acute intracranial hemorrhage or evidence of acute territorial infarction. No shift of the midline structures, mass effect, or extra-axial abnormalities are shown. Atherosclerotic calcifications are present in the intracranial segments of the internal carotid arteries. CTA Neck: A 3 vessel aortic arch is shown. Atherosclerotic plaque is present in the aortic arch and at the origin of the great vessels. There is no athero sclerotic plaque at the origins of the vertebral arteries. The common carotid, external carotid, cervical segments of the internal carotid arteries, and the cervical segments of the vertebral arteries are patent. There is no hemodynamically significant diameter stenosis or dissection present. The left vertebral artery is dominant. CTA Head: The anterior and posterior cerebral circulations are patent. No hemodynamically significant stenosis, aneurysm, dissection, or arteriovenous malformation is shown. Atherosclerotic disease is noted. Incidentally noted is origin of the right posterior cerebral artery. IMPRESSION: 1. No occlusion, hemodynamically significant stenosis, aneurysm, dissection, or arteriovenous malformation in the major intracranial arteries. 2. No occlusion, hemodynamically significant stenosis, or dissection in the major cervical arteries. 3. Visualized brain parenchyma is unremarkable. Assessment of stenosis of the internal carotid arteries is based on NASCET criteria. ACT 112: Negative or not required by law. Electronically signed by: Jacobo Whitney M.D. 02/10/2021 4:58 PM ECG Data Attestation: I personally reviewed and interpreted this ECG as follows: Indication: + altered mental status Rate (beats per minute): 83 Rhythm: + normal sinus ECG [place]: + Normal ECG ST segments: + Nonspecific ST abnormalities ECG Findings: no PVCs MDM Narrative I did evaluate the patient as noted above. She is presenting with altered mental status which is getting progressively worse over the past week. Recently she could not work her television and took about 1/2-hour to get the TV on. She started pouring water into her coffee filter despite the fact that she normally makes coffee every single day. On exam here she is only oriented to person. She is otherwise neurologically intact and has no focal deficits. IV access was established. I did place an order for continuous cardiac monitoring. The monitor showed normal sinus rhythm at a rate of 96 bpm. I did order and personally review the patient's 12-lead EKG as described above. She has no acute ischemic changes. I did order and personally reviewed the images of the patient's chest x-ray as described above. I did order a urine analysis and urine tox screen which is currently pending as we do not have a sample. I did order and review the patient's blood work as noted in the electronic medical record. CBC is unremarkable without leukocytosis or anemia. Electrolytes demonstrate a potassium of 3.1 and a magnesium of 1.7. LFTs are unremarkable other than an AST of 50. Troponin is negative. Lyme testing is positive for IgM. Covid testing is negative. I did order a CT of the head and CT angiogram of the head and neck. I did review the images myself as well as the radiology report as described above. No acute abnormality was found. There is no mass or bleed. I did reassess the patient. She continues to be confused. I did discuss the case with Dr. Edwards of neurology who recommended patient get an MRI and EEG and lumbar puncture. I did discuss this with the patient and her son who are agreeable. I did talk to Dr. Lam of the hospitalist service. She did see the patient in the emergency department and requested that I perform the lumbar puncture. I did obtain informed consent from the patient's over the telephone, [place], as well as discussed risks and benefits with her son who is at bedside and with the patient herself; although I do not know how much she understood the conversation. I did perform the lumbar puncture without any difficulty. The CSF was clear and the patient was given a liter normal saline. The CSF was sent to the lab for further evaluation. I did order an MRI of the brain. CSF demonstrated 2 WBCs and 1 RBC. Other results are currently pending. Dr. Lam will follow up on results. Impression & Plan Acute alteration in mental status, Positive Lyme disease serology, Hypokalemia Discharge Plan Visit Data Chief Complaint: Confusion Stated Complaint: MEMORY ISSUES [id number],LESS EMOTION THAN NORMAL ED Provider: He Patrick Discharge Problem: Acute alteration in mental status, Positive Lyme disease serology, Hypokalemia Patient Disposition: Being Evaluated by Hospitalist Forms Stand Alone Forms: My [facility] Prescriptions Prescriptions: No Action insulin glargine 100 unit/mL Solution 38 unit SUBCUT HS RF: 0 losartan 25 mg Tablet 0 mg PO DAILY RF: 0 metoprolol tartrate 50 mg Tablet 50 mg PO BID RF: 0 rosuvastatin [Crestor] 40 mg Tablet 40 mg PO DAILY RF: 0 hydrochlorothiazide 12.5 mg Tablet 12.5 mg PO DAILY RF: 0 omega [id number]-fish oil [Fish Oil] 1,000 mg (120 mg-180 mg) Capsule 1 cap PO DAILY RF: 0 Probiotic 3 billion cell Capsule 3,000 mmu cells PO DAILY RF: 0 doxycycline hyclate 100 mg capsule 100 mg PO BID RF: 0 meloxicam 15 mg tablet 15 mg PO DAILY RF: 0 buspirone 10 mg tablet 10 mg PO BID RF: 0 Referrals Referrals: Marky Bran, [Primary Care Provider] -
[2021-02-10 15:35] LABS: Basophils # (auto) 0.02 K/uL (0-0.2); Basophils % (auto) 0.2 %; Eosinophils # (auto) 0.08 K/uL (0-0.5); Eosinophils % (auto) 0.8 %; Hematocrit (blood only) 41.8 % (37-47); Hemoglobin 14.6 g/dL (12.0-16.0); Immature Granulocytes # (auto) 0.01 K/uL (0.00-0.02); Immature Granulocytes % (auto) 0.1 %; Lymphocytes # (auto) 3.22 K/uL (1.2-3.4); Lymphocytes % (auto) 32.7 %; Mean Corpuscular Hemoglobin 33.5 pg (25-34); Mean Corpuscular Hgb Conc 34.9 g/dL (32-36); Mean Corpuscular Volume 95.9 fL (80-100); Mean Platelet Volume 9.7 fL (7.4-10.4); Monocytes # (auto) 0.47 K/uL (0.11-0.59); Monocytes % (auto) 4.8 %; Neutrophils # (auto) 6.06 K/uL (1.4-6.5); Neutrophils % (auto) 61.4 %; Platelet Count 293 K/uL (130-400); RDW Coefficient of Variation 13.2 % (11.5-14.5); RDW Standard Deviation 45.8 fL (36.4-46.3); Red Blood Count 4.36 M/uL (4.2-5.4); White Blood Count 9.86 K/uL (4.8-10.8)
[2021-02-10 15:45] LABS: Partial Thromboplastin Ratio 0.9; Partial Thromboplastin Time 24.6 Seconds (21.0-31.0); Prothrombin Time 10.2 Seconds (9.0-12.0)
[2021-02-10 15:52] LABS: Alanine Aminotransferase 65 U/L (12-78); Albumin Level 3.8 gm/dl (3.4-5.0); Aspartate Aminotransferase 50 U/L (15-37); BUN Creatinine Ratio 18.9 (10-20); Blood Urea Nitrogen 16 mg/dl (7-18); Calcium 9.8 mg/dl (8.5-10.1); Carbon Dioxide 26 mmol/L (21-32); Chloride 103 mmol/L (98-107); Est GFR (Non-African American) 77.7 ml/min; Glucose 138 mg/dl (70-99); Magnesium 1.7 mg/dl (1.8-2.4); Potassium 3.1 mmol/L (3.5-5.1); Sodium 139 mmol/L (136-145)
[2021-02-10 15:57] LABS: Albumin Globulin Ratio 0.9 (0.9-2); Alkaline Phosphatase 98 U/L (45-117); Bilirubin,Total 0.8 mg/dl (0.2-1); Globulin 4.1 gm/dl (2.5-4.0); Total Protein 7.9 gm/dl (6.4-8.2); Troponin I < 0.015 ng/ml (0-0.045)
[2021-02-10] MEDS ORDERED: OPTIRAY 320 125ml IV ONE (16:02)
[2021-02-10 16:03] LABS: Salicylate 5.5 mg/dl (2.8-20)
[2021-02-10 16:05] LABS: Acetaminophen < 2 ug/ml (10-30)
[2021-02-10 16:18] LABS: Lyme Ab IgG w/WB Rflx Negative (Negative)
[2021-02-10 16:20] LABS: Lyme Ab IgM w/WB Rflx Positive (Negative)
--- NOTE | 2021-02-10 17:00 | CT Scan Report ---
CT angio neck with con, CT head/brain wo con Clinical Indication: [place] ^Stroke Like Symptoms . TECHNIQUE: Contiguous axial CT images of the head were acquired from the base of the skull to the everardo tony without intravenous contrast administration. CT angiography of the head and neck was performed f ollowing intravenous administration of iodinated contrast. Automated dose lowering techniques and/or adjustment according to patient size were utilized for this examination. Comparison: None available at the time of this dictation. FINDINGS: CT head: The brain is unremarkable. There is no acute intracranial hemorrhage or evidence of acute te rritorial infarction. No shift of the midline structures, mass effect, or extra-axial abnormalities a re shown. Atherosclerotic calcifications are present in the intracranial segments of the internal ca rotid arteries. CTA Neck: A 3 vessel aortic arch is shown. Atherosclerotic plaque is present in the aortic arch and at the origin of the great vessels. There is no atherosclerotic plaque at the origins of the vertebra l arteries. The common carotid, external carotid, cervical segments of the internal carotid arteries, and the cervical segments of the vertebral arteries are patent. There is no hemodynamically signifi cant diameter stenosis or dissection present. The left vertebral artery is dominant. CTA Head: The anterior and posterior cerebral circulations are patent. No hemodynamically significan t stenosis, aneurysm, dissection, or arteriovenous malformation is shown. Atherosclerotic disease is noted. Incidentally noted is origin of the right posterior cerebral artery. IMPRESSION: 1. No occlusion, hemodynamically significant stenosis, aneurysm, dissection, or arteriovenous malfor mation in the major intracranial arteries. 2. No occlusion, hemodynamically significant stenosis, or dissection in the major cervical arteries. 3. Visualized brain parenchyma is unremarkable. Assessment of stenosis of the internal carotid arteries is based on NASCET criteria. ACT 112: Negative or not required by law. Electronically signed by: Jacobo Whitney M.D. 02/10/2021 4:58 PM
[2021-02-10] MEDS ORDERED: SODIUM CHLORIDE 0.9% 1000ML 1,000 ML IV ONE (18:43)
[2021-02-10 19:13] LABS: Appearance CSF Clear; CSF Count Tube # 3; CSF Xanthrochromic No xanthochromia; Color CSF Colorless; Red Blood Cell CSF (A) 1 /uL (0-); Red Blood Cell CSF (B) 1 /uL (0-); White Blood Cell CSF (B) 3 /uL (0-5)
[2021-02-10 19:14] LABS: White Blood Cell CSF (A) 2 /uL (0-5)
[2021-02-10 19:23] LABS: CSF Glucose 83 mg/dl (40-70)
[2021-02-10 19:24] LABS: Total Protein CSF 68.9 mg/dl (15-45)
[2021-02-10 19:29] LABS: CSF Chemistry Tube # 1
[2021-02-10] MEDS ORDERED: ACETAMINOPHEN 325 MG TAB PO PRN (19:30)
[2021-02-10] MEDS ORDERED: POTASSIUM CHLORIDE CRTAB 20 MEQ TABCR PO STA (19:35)
[2021-02-10] MEDS ORDERED: MAGNESIUM SULFATE / D5W 1 GM/100 ML BAG IV ONE (19:36)
[2021-02-10] MEDS ORDERED: cefTRIAXone SODIUM 2,000 MG/70 ML BAG IV STA (19:42)
[2021-02-10 19:48] LABS: Folate (Folic Acid) > 20.00 ng/ml (>5.38); Vitamin B12 1057 pg/ml (193-986)
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
[2021-02-10] MEDS ORDERED: GLUCAGON FOR INJ 1 MG VIAL SQ PRN (19:51)
[2021-02-10] MEDS ORDERED: GLUCOSE 40% GEL 15 GM TUBE PO PRN (19:51)
[2021-02-10] MEDS ORDERED: CARBOHYDRATES FOR HYPOGLYCEMIA PO PRN (19:51)
[2021-02-10] MEDS ORDERED: DEXTROSE 50% 50 ML SYRINGE IV PRN (19:51)
[2021-02-10] MEDS ORDERED: GLUCOSE 10 TABS/TUBE PO PRN (19:51)
[2021-02-10] MEDS ORDERED: PHARMACY GLYCEMIC MGMT CONSULT PRN (19:52)
--- NOTE | 2021-02-10 19:56 | XRay Report ---
XR chest 1V portable INDICATION: MN ^eval for any metallic prosthesis or PM. TECHNIQUE: Single frontal radiograph of the chest was obtained. Comparison: Comparison is made to chest one view 05/19/2018 FINDINGS: No lines and tubes are seen. The cardiomediastinal silhouette is normal. The lungs are clear. No evid ence of pleural effusion or pneumothorax. Old healed rib fractures are noted on the left. IMPRESSION: No acute chest disease. ACT 112: Negative or not required by law. Electronically signed by: Jacobo Whitney M.D. 02/10/2021 7:55 PM
--- NOTE | 2021-02-10 19:59 | XRay Report ---
XR KUB/Abdomen 1 view INDICATION: MN ^eval for any metallic prosthesis, MRI clearance. TECHNIQUE: 1 view of the abdomen was obtained. Comparison: None available at the time of this dictation. FINDINGS: Lung bases are unremarkable. The osseous structures are grossly unremarkable. The bowel gas pattern i s nonobstructive. A moderate amount of stool is noted within the large bowel. Contrast is seen in the bilateral renal collecting systems, left ureter, and bladder. Cholecystomy clips are seen in the rig ht upper quadrant. IMPRESSION: Postoperative clips in the right upper quadrant. Otherwise no metallic foreign bodies are seen. ACT 112: Negative or not required by law. Electronically signed by: Jacobo Whitney M.D. 02/10/2021 7:57 PM
[2021-02-10 20:39] LABS: Cryptococcus neoformans/ga PCR Not Detected (NotDetected); Cytomegalovirus PCR Not Detected (NotDetected); Enterovirus PCR Not Detected (NotDetected); Escherichia coli K1 PCR Not Detected (NotDetected); Haemophilius influenzae PCR Not Detected (NotDetected); Herpes Simplex Virus 1 PCR Not Detected (NotDetected); Herpes Simplex Virus 2 PCR Not Detected (NotDetected); Human Herpes Virus 6 PCR Not Detected (NotDetected); Human Parechovirus PCR Not Detected (NotDetected); Listeria monocytogenes PCR Not Detected (NotDetected); Neisseria meningitidis PCR Not Detected (NotDetected); Streptococcus agalactiae PCR Not Detected (NotDetected); Streptococcus pneumoniae PCR Not Detected (NotDetected); Varicella Zoster Virus PCR Not Detected (NotDetected)
[2021-02-10] MEDS ORDERED: GADOBUTROL 10ML VIAL IV ONE (20:43)
--- NOTE | 2021-02-10 21:02 | Magnetic Resonance Report ---
MR brain wo/w con INDICATION: Altered mental status TECHNIQUE: Multiplanar and multisequence MR images of the brain were obtained prior to and following administration of gadolinium contrast. Comparison: Comparison is made to CT angiography head and neck 02/10/2021 FINDINGS: No abnormal restricted diffusion is identified. Foci of T2 and FLAIR hyperintensity are noted in the paraventricular areas consistent with chronic small vessel ischemic disease. Ex vacuo ventriculomegal y and sulcal enlargement is noted compatible with diffuse encephalomalacia. There is no evidence of a cute intraparenchymal hemorrhage. No extra axial fluid collections are seen. There are no masses, mas s effect, or midline shift. No abnormal enhancement is seen. The corpus callosum, pituitary gland, a nd cerebellar tonsils appear grossly unremarkable. Flow voids of the major intracranial arterial vessels are identified. The imaged portions of the para nasal sinuses, mastoid air cells, and orbits are unremarkable. IMPRESSION: Chronic volume loss and age related white matter changes without evidence of acute abnormality. ACT 112: Negative or not required by law. Electronically signed by: Jacobo Whitney M.D. 02/10/2021 9:00 PM
[2021-02-10] MEDS ORDERED: LANTUS PER UNIT CHARGE SQ SCH (21:09)
[2021-02-10] MEDS: cefTRIAXone SODIUM 2,000 MG in DEXTROSE 5% 50 ML IV SCH (22:25)
[2021-02-10] MEDS: INSULIN ASPART 100 UNITS/ML 3 ML PEN SC SCH (22:25)
[2021-02-10] MEDS: METOPROLOL TARTRATE 50 MG TAB PO SCH (22:26)
[2021-02-10] MEDS: INSULIN GLARGINE SOLOSTAR 100 UNITS/ML 3 ML PEN SC SCH (22:26)
--- NOTE | 2021-02-11 08:26 | Hospitalist Progress Note ---
Date of Service February 11, 2021 Assessment & Plan (1) Acute alteration in mental status: Plan: Progressively worsening mental status over past week Patient unable to do simple tasks, forgetting to turn on the lights in the car, operating coffee machine operating TV, also reported staring episodes Not oriented to place or time, only oriented to herself No numbness weakness, or any other focal deficits Not clear if this is secondary to possible stroke, seizure , drug use, or infectious etiology Lyme panel in the outpatient setting, obtained, and patient started on doxycycline [address] head and neck done in the ED unremarkable Patient has history of tobacco, marijuana and alcohol use. Alcohol level undetectable in the ED. Not clear if patient is using any substances Toxicology obtained UA pending Blood cultures pending LP done in the ED, results pending Lyme serology obtained in ED, IgM positive, final results pending At home was on doxycycline for 1 week, will start ceftriaxone now MRI brain - Chronic volume loss and age related white matter changes without evidence of acute abnormality. Likely will need EEG RPR pending Anaplasma smear - negative, PCR Obtained vit. B12, folic acid level - both wnl Ammonia level - 19 (wnl) Neurology consulted, appreciate their input This patient appears to have an encephalopathy with some abnormal movement, some cogwheel rigidity. Her MRI showing abnormalities in the bilateral globus pallidus. History is not particularly revealing. The differential is broad and includes toxic metabolic etiologies, would check heavy metals, ceruloplasmin, copper, methylmalonic acid, CAROLYN, sed rate, anticardiolipin antibodies, TSH and carbon monoxide level. If that is unremarkable, would check for cyanide. The degenerative processes that can be associated include Eren's disease, [place]'s disease, CJD. I am somewhat suspicious given her abnormal movements and that she has something like [place] however, there is no family history of the same, although her father's medical history is not known. EEG today. I would recommend thiamine supplementation due to her history of alcohol use. Consider evaluation of elevated liver functions if hospitalist thinks reasonable. We will follow with you. (2) Positive Lyme disease serology: Plan: -Had Lyme disease panel in outpatient setting, and was started on doxycycline, however final results were not conclusive -In the ED, currently IgM positive for Lyme, final results pending -Patient has been on doxycycline, will stop now, will start IV ceftriaxone and continue to monitor closely (3) Hypokalemia: Plan: -Replete and monitor (4) Hypomagnesemia: Plan: -Replete and monitor (5) Diabetes mellitus: Plan: Currently on insulin Check A1c For now decrease home glargine, sliding scale, monitor blood sugars HTN, HLD -Continue home medications, monitor blood pressure Depression -Continue home medications DVT ppx : SCDs for now Code: Full Admission and Anticipated Discharge Date Admission Date: February 10, 2021 Subjective Patient seen in follow-up of altered mental status/confusion Underwent LP yesterday in the ED MRI brain obtained Currently laying in bed, in no acute distress. She knows she is in the hospital and her name however cannot tell me anything else. She can not tell me where she lives, what year it is or answer any other simple questions. She denies headache, chest pain, shortness of breath, palpitations, abdominal pain, nausea vomiting. Also denies any backache. Per nursing staff, patient was confused and was pulling her EKG leads. Review of Systems Review of Systems: All systems reviewed & are unremarkable except as noted in Subjective Physical Exam Physical Exam: Constitutional: WD/WN, vitals as above Eyes: PERRL, EOMI, conjunctivae normal, anicteric sclerae ENMT: external ear and nose normal, oropharynx normal Neck: supple Respiratory: normal respiratory effort, lungs clear to auscultation Cardiovascular: RRR, no murmur, no edema Chest : normal inspection of chest Gastrointestinal (Abdomen): normal bowel sounds, soft, nontender Musculoskeletal: extremities motor strength 5/5, moves extremities spontaneously Skin: no rashes, warm and dry Neuro/ Psych: Pt is awake and alert, however not able to answer simple questions appropriately. She does not know where she is, where she lives, what year it is. She is able to tell me her name. She follows simple commands and she is cooperative. She has no weakness in her extremities, and she moves all extremities spontaneously. gait not assessed. Results & Data Results & Data ([facility]) Vital Signs (Past 12 Hours) Vital Signs Temp Pulse Pulse Resp BP Pulse Ox 02/11/21 07:47 36.7 C 70 20 115/78 96 02/11/21 03:00 36.8 C 70 20 130/75 99 02/10/21 22:45 36.7 C 59 L 18 135/87 92 02/10/21 22:22 87 02/10/21 21:14 90 02/10/21 21:11 36.9 C 79 16 144/90 H 98 Laboratory Results 02/11/21 02/11/21 02/11/21 Range/Units 16:14 13:49 13:49 WBC (4.8-10.8) K/uL RBC (4.2-5.4) M/uL Hgb (12.0-16.0) g/dL Hct (37-47) % MCV (80-100) fL MCH (25-34) pg MCHC (32-36) g/dL RDW Std Deviation (36.4-46.3) fL RDW Coeff of Pietro (11.5-14.5) % Plt Count (130-400) K/uL MPV (7.4-10.4) fL Immature Gran % (Auto) % Neut % (Auto) % Lymph % (Auto) % Garfield % (Auto) % Eos % (Auto) % Baso % (Auto) % Neut # (Auto) (1.4-6.5) K/uL Lymph # (Auto) (1.2-3.4) K/uL Garfield # (Auto) (0.11-0.59) K/uL Eos # (Auto) (0-0.5) K/uL Baso # (Auto) (0-0.2) K/uL Immature Gran # (Auto) (0.00-0.02) K/uL ESR (0-30) mm/hr Carboxyhemoglobin % THgb Sodium (136-145) mmol/L Potassium (3.5-5.1) mmol/L Chloride (98-107) mmol/L Carbon Dioxide (21-32) mmol/L Anion Gap (3-11) BUN (7-18) mg/dl Creatinine (0.6-1.2) mg/dl Est Cr Clr Drug Dosing ml/min Est GFR ( Amer) ml/min Est GFR (Non-Af Amer) ml/min BUN/Creatinine Ratio (10-20) Glucose (70-99) mg/dl POC Glucose 105 H (70-99) mg/dl Estimat Average Glucose Hemoglobin A1c Calcium (8.5-10.1) mg/dl Phosphorus (2.5-4.9) mg/dl Magnesium (1.8-2.4) mg/dl Total Bilirubin (0.2-1) mg/dl AST (15-37) U/L ALT (12-78) U/L Alkaline Phosphatase (45-117) U/L Ammonia (11-32) umol/L Total Protein (6.4-8.2) gm/dl Albumin (3.4-5.0) gm/dl Globulin (2.5-4.0) gm/dl Albumin/Globulin Ratio (0.9-2) Ceruloplasmin Triglycerides (0-150) mg/dl Cholesterol (0-200) mg/dl LDL Cholesterol, Calc mg/dl VLDL Cholesterol, Calc mg/dl HDL Cholesterol mg/dl Cholesterol/HDL Ratio Vitamin B6 Vitamin B12 (193-986) pg/ml Methylmalonic Acid Folate (>5.38) ng/ml TSH (0.300-4.500) uIu/ml Urine Color Dark Yellow Urine Appearance Cloudy A (Clear) Urine pH 6.5 (4.5-7.5) Ur Specific [place] 1.038 H (1.000-1.030) Urine Protein 1+ H (Negative) Urine Glucose (UA) Negative (Negative) Urine Ketones 1+ H (Negative) Urine Blood Negative (Negative) Urine Nitrite Negative (Negative) Urine Bilirubin 1+ H (Negative) Urine Urobilinogen Negative (Negative) Ur Leukocyte Esterase 1+ H (Negative) Urine WBC (Auto) 5-10 H (0-5) /hpf Urine RBC (Auto) 0-4 (0-4) /hpf U Hyaline Cast (Auto) 1-5 (0-5) /lpf U Epithel Cells (Auto) >30 H (0-5) /lpf Urine Bacteria (Auto) 1+ H (Negative) Ur Renal Epithelial Cell Not Reportable Urine Mucus Present A (None Prsent) Fluid Comment CSF Appearance CSF Color Xanthrochromic CSF WBC (0-5) /uL CSF RBC (0-) /uL CSF Cell Count Tube # CSF Chemistry Tube # CSF Glucose (40-70) mg/dl CSF Total Protein (15-45) mg/dl CSF VDRL CSF Lyme IgG (Immblot) CSF Lyme IgG Bands Det CSF Lyme IgM (Immblot) CSF Lyme IgM Bands Det CSF C.neoform/gat PCR (NotDetected) CSF CMV DNA (PCR) (NotDetected) CSF Enterovirus (PCR) (NotDetected) CSF E. coli K1 (PCR) (NotDetected) CSF H. influenzae (PCR) (NotDetected) CSF HSV I (PCR) (NotDetected) CSF HSV II (PCR) (NotDetected) CSF HHV 6 (PCR) (NotDetected) CSF L.monocytogenes PCR (NotDetected) CSF N. meningitidis PCR (NotDetected) CSF Parechovirus (PCR) (NotDetected) CSF S. agalactiae (PCR) (NotDetected) CSF S. pneumoniae (PCR) (NotDetected) CSF VZV DNA (PCR) (NotDetected) Urine Opiates Screen (Neg) Ur Methadone, Qual (Neg) Urine Barbiturates (Neg) Ur Phencyclidine (PCP) (Neg) U Amphetamin/Meth Scrn (Neg) MDMA (Ecstasy) Screen (Neg) U Benzodiazepines Scrn (Neg) Ur Cocaine Metabolite (Neg) U Marijuana (THC) Screen (Neg) U Marijuana THC Carboxy Pending Drug Screen Comment Pending Arsenic Serum Copper Lead Mercury CAROLYN Screen Beta-2-GPI IgG Ab Beta-2-GPI IgA Ab Beta-2-GPI IgM Ab Phosphatidylserine IgG Phosphatidylserine IgA Phosphatidylserine IgM Anti-Phospholipid Intrp Anti-Cardiolipin IgG Ab Anti-Cardiolipin IgA Ab Anti-Cardiolipin IgM Ab RPR 02/11/21 02/11/21 02/11/21 Range/Units 13:49 12:06 12:06 WBC (4.8-10.8) K/uL RBC (4.2-5.4) M/uL Hgb (12.0-16.0) g/dL Hct (37-47) % MCV (80-100) fL MCH (25-34) pg MCHC (32-36) g/dL RDW Std Deviation (36.4-46.3) fL RDW Coeff of Pietro (11.5-14.5) % Plt Count (130-400) K/uL MPV (7.4-10.4) fL Immature Gran % (Auto) % Neut % (Auto) % Lymph % (Auto) % Garfield % (Auto) % Eos % (Auto) % Baso % (Auto) % Neut # (Auto) (1.4-6.5) K/uL Lymph # (Auto) (1.2-3.4) K/uL Garfield # (Auto) (0.11-0.59) K/uL Eos # (Auto) (0-0.5) K/uL Baso # (Auto) (0-0.2) K/uL Immature Gran # (Auto) (0.00-0.02) K/uL ESR (0-30) mm/hr Carboxyhemoglobin 0.0 % THgb Sodium (136-145) mmol/L Potassium (3.5-5.1) mmol/L Chloride (98-107) mmol/L Carbon Dioxide (21-32) mmol/L Anion Gap (3-11) BUN (7-18) mg/dl Creatinine (0.6-1.2) mg/dl Est Cr Clr Drug Dosing ml/min Est GFR ( Amer) ml/min Est GFR (Non-Af Amer) ml/min BUN/Creatinine Ratio (10-20) Glucose (70-99) mg/dl POC Glucose (70-99) mg/dl Estimat Average Glucose Hemoglobin A1c Calcium (8.5-10.1) mg/dl Phosphorus (2.5-4.9) mg/dl Magnesium (1.8-2.4) mg/dl Total Bilirubin (0.2-1) mg/dl AST (15-37) U/L ALT (12-78) U/L Alkaline Phosphatase (45-117) U/L Ammonia (11-32) umol/L Total Protein (6.4-8.2) gm/dl Albumin (3.4-5.0) gm/dl Globulin (2.5-4.0) gm/dl Albumin/Globulin Ratio (0.9-2) Ceruloplasmin Pending Triglycerides (0-150) mg/dl Cholesterol (0-200) mg/dl LDL Cholesterol, Calc mg/dl VLDL Cholesterol, Calc mg/dl HDL Cholesterol mg/dl Cholesterol/HDL Ratio Vitamin B6 Vitamin B12 (193-986) pg/ml Methylmalonic Acid Pending Folate (>5.38) ng/ml TSH (0.300-4.500) uIu/ml Urine Color Urine Appearance (Clear) Urine pH (4.5-7.5) Ur Specific [place] (1.000-1.030) Urine Protein (Negative) Urine Glucose (UA) (Negative) Urine Ketones (Negative) Urine Blood (Negative) Urine Nitrite (Negative) Urine Bilirubin (Negative) Urine Urobilinogen (Negative) Ur Leukocyte Esterase (Negative) Urine WBC (Auto) (0-5) /hpf Urine RBC (Auto) (0-4) /hpf U Hyaline Cast (Auto) (0-5) /lpf U Epithel Cells (Auto) (0-5) /lpf Urine Bacteria (Auto) (Negative) Ur Renal Epithelial Cell Urine Mucus (None Prsent) Fluid Comment CSF Appearance CSF Color Xanthrochromic CSF WBC (0-5) /uL CSF RBC (0-) /uL CSF Cell Count Tube # CSF Chemistry Tube # CSF Glucose (40-70) mg/dl CSF Total Protein (15-45) mg/dl CSF VDRL CSF Lyme IgG (Immblot) CSF Lyme IgG Bands Det CSF Lyme IgM (Immblot) CSF Lyme IgM Bands Det CSF C.neoform/gat PCR (NotDetected) CSF CMV DNA (PCR) (NotDetected) CSF Enterovirus (PCR) (NotDetected) CSF E. coli K1 (PCR) (NotDetected) CSF H. influenzae (PCR) (NotDetected) CSF HSV I (PCR) (NotDetected) CSF HSV II (PCR) (NotDetected) CSF HHV 6 (PCR) (NotDetected) CSF L.monocytogenes PCR (NotDetected) CSF N. meningitidis PCR (NotDetected) CSF Parechovirus (PCR) (NotDetected) CSF S. agalactiae (PCR) (NotDetected) CSF S. pneumoniae (PCR) (NotDetected) CSF VZV DNA (PCR) (NotDetected) Urine Opiates Screen Neg (Neg) Ur Methadone, Qual Neg (Neg) Urine Barbiturates Neg (Neg) Ur Phencyclidine (PCP) Neg (Neg) U Amphetamin/Meth Scrn Neg (Neg) MDMA (Ecstasy) Screen Neg (Neg) U Benzodiazepines Scrn Neg (Neg) Ur Cocaine Metabolite Neg (Neg) U Marijuana (THC) Screen Pos H (Neg) U Marijuana THC Carboxy Drug Screen Comment Arsenic Pending Serum Copper Pending Lead Pending Mercury Pending CAROLYN Screen Pending Beta-2-GPI IgG Ab Pending Beta-2-GPI IgA Ab Pending Beta-2-GPI IgM Ab Pending Phosphatidylserine IgG Pending Phosphatidylserine IgA Pending Phosphatidylserine IgM Pending Anti-Phospholipid Intrp Pending Anti-Cardiolipin IgG Ab Pending Anti-Cardiolipin IgA Ab Pending Anti-Cardiolipin IgM Ab Pending RPR 02/11/21 02/11/21 02/11/21 Range/Units 12:06 12:06 11:25 WBC (4.8-10.8) K/uL RBC (4.2-5.4) M/uL Hgb (12.0-16.0) g/dL Hct (37-47) % MCV (80-100) fL MCH (25-34) pg MCHC (32-36) g/dL RDW Std Deviation (36.4-46.3) fL RDW Coeff of Pietro (11.5-14.5) % Plt Count (130-400) K/uL MPV (7.4-10.4) fL Immature Gran % (Auto) % Neut % (Auto) % Lymph % (Auto) % [place] % (Auto) % Eos % (Auto) % Baso % (Auto) % Neut # (Auto) (1.4-6.5) K/uL Lymph # (Auto) (1.2-3.4) K/uL [place]field # (Auto) (0.11-0.59) K/uL Eos # (Auto) (0-0.5) K/uL Baso # (Auto) (0-0.2) K/uL Immature Gran # (Auto) (0.00-0.02) K/uL ESR 17 (0-30) mm/hr Carboxyhemoglobin % THgb Sodium (136-145) mmol/L Potassium (3.5-5.1) mmol/L Chloride (98-107) mmol/L Carbon Dioxide (21-32) mmol/L Anion Gap (3-11) BUN (7-18) mg/dl Creatinine (0.6-1.2) mg/dl Est Cr Clr Drug Dosing ml/min Est GFR ( Amer) ml/min Est GFR (Non-Af Amer) ml/min BUN/Creatinine Ratio (10-20) Glucose (70-99) mg/dl POC Glucose 119 H (70-99) mg/dl Estimat Average Glucose Hemoglobin A1c Calcium (8.5-10.1) mg/dl Phosphorus (2.5-4.9) mg/dl Magnesium (1.8-2.4) mg/dl Total Bilirubin (0.2-1) mg/dl AST (15-37) U/L ALT (12-78) U/L Alkaline Phosphatase (45-117) U/L Ammonia (11-32) umol/L Total Protein (6.4-8.2) gm/dl Albumin (3.4-5.0) gm/dl Globulin (2.5-4.0) gm/dl Albumin/Globulin Ratio (0.9-2) Ceruloplasmin Triglycerides (0-150) mg/dl Cholesterol (0-200) mg/dl LDL Cholesterol, Calc mg/dl VLDL Cholesterol, Calc mg/dl HDL Cholesterol mg/dl Cholesterol/HDL Ratio Vitamin B6 Vitamin B12 (193-986) pg/ml Methylmalonic Acid Folate (>5.38) ng/ml TSH 0.628 (0.300-4.500) uIu/ml Urine Color Urine Appearance (Clear) Urine pH (4.5-7.5) Ur Specific [place] (1.000-1.030) Urine Protein (Negative) Urine Glucose (UA) (Negative) Urine Ketones (Negative) Urine Blood (Negative) Urine Nitrite (Negative) Urine Bilirubin (Negative) Urine Urobilinogen (Negative) Ur Leukocyte Esterase (Negative) Urine WBC (Auto) (0-5) /hpf Urine RBC (Auto) (0-4) /hpf U Hyaline Cast (Auto) (0-5) /lpf U Epithel Cells (Auto) (0-5) /lpf Urine Bacteria (Auto) (Negative) Ur Renal Epithelial Cell Urine Mucus (None Prsent) Fluid Comment CSF Appearance CSF Color Xanthrochromic CSF WBC (0-5) /uL CSF RBC (0-) /uL CSF Cell Count Tube # CSF Chemistry Tube # CSF Glucose (40-70) mg/dl CSF Total Protein (15-45) mg/dl CSF VDRL CSF Lyme IgG (Immblot) CSF Lyme IgG Bands Det CSF Lyme IgM (Immblot) CSF Lyme IgM Bands Det CSF C.neoform/gat PCR (NotDetected) CSF CMV DNA (PCR) (NotDetected) CSF Enterovirus (PCR) (NotDetected) CSF E. coli K1 (PCR) (NotDetected) CSF H. influenzae (PCR) (NotDetected) CSF HSV I (PCR) (NotDetected) CSF HSV II (PCR) (NotDetected) CSF HHV 6 (PCR) (NotDetected) CSF L.monocytogenes PCR (NotDetected) CSF N. meningitidis PCR (NotDetected) CSF Parechovirus (PCR) (NotDetected) CSF S. agalactiae (PCR) (NotDetected) CSF S. pneumoniae (PCR) (NotDetected) CSF VZV DNA (PCR) (NotDetected) Urine Opiates Screen (Neg) Ur Methadone, Qual (Neg) Urine Barbiturates (Neg) Ur Phencyclidine (PCP) (Neg) U Amphetamin/Meth Scrn (Neg) MDMA (Ecstasy) Screen (Neg) U Benzodiazepines Scrn (Neg) Ur Cocaine Metabolite (Neg) U Marijuana (THC) Screen (Neg) U Marijuana THC Carboxy Drug Screen Comment Arsenic Serum Copper Lead Mercury CAROLYN Screen Beta-2-GPI IgG Ab Beta-2-GPI IgA Ab Beta-2-GPI IgM Ab Phosphatidylserine IgG Phosphatidylserine IgA Phosphatidylserine IgM Anti-Phospholipid Intrp Anti-Cardiolipin IgG Ab Anti-Cardiolipin IgA Ab Anti-Cardiolipin IgM Ab RPR 02/11/21 02/11/21 02/11/21 Range/Units 10:10 10:10 10:10 WBC (4.8-10.8) K/uL RBC (4.2-5.4) M/uL Hgb (12.0-16.0) g/dL Hct (37-47) % MCV (80-100) fL MCH (25-34) pg MCHC (32-36) g/dL RDW Std Deviation (36.4-46.3) fL RDW Coeff of Pietro (11.5-14.5) % Plt Count (130-400) K/uL MPV (7.4-10.4) fL Immature Gran % (Auto) % Neut % (Auto) % Lymph % (Auto) % [place] % (Auto) % Eos % (Auto) % Baso % (Auto) % Neut # (Auto) (1.4-6.5) K/uL Lymph # (Auto) (1.2-3.4) K/uL [place] # (Auto) (0.11-0.59) K/uL Eos # (Auto) (0-0.5) K/uL Baso # (Auto) (0-0.2) K/uL Immature Gran # (Auto) (0.00-0.02) K/uL ESR (0-30) mm/hr Carboxyhemoglobin % THgb Sodium 139 (136-145) mmol/L Potassium 3.8 D (3.5-5.1) mmol/L Chloride 106 (98-107) mmol/L Carbon Dioxide 27 (21-32) mmol/L Anion Gap 6.0 (3-11) BUN 13 (7-18) mg/dl Creatinine 0.78 (0.6-1.2) mg/dl Est Cr Clr Drug Dosing 95.0 ml/min Est GFR ( Amer) 101.3 ml/min Est GFR (Non-Af Amer) 87.4 ml/min BUN/Creatinine Ratio 16.4 (10-20) Glucose 136 H (70-99) mg/dl POC Glucose (70-99) mg/dl Estimat Average Glucose Pending Hemoglobin A1c Pending Calcium 9.3 (8.5-10.1) mg/dl Phosphorus 2.7 (2.5-4.9) mg/dl Magnesium 2.1 (1.8-2.4) mg/dl Total Bilirubin 0.7 (0.2-1) mg/dl AST 43 H (15-37) U/L ALT 57 (12-78) U/L Alkaline Phosphatase 90 (45-117) U/L Ammonia 19.0 (11-32) umol/L Total Protein 7.1 (6.4-8.2) gm/dl Albumin 3.4 (3.4-5.0) gm/dl Globulin 3.7 (2.5-4.0) gm/dl Albumin/Globulin Ratio 0.9 (0.9-2) Ceruloplasmin Triglycerides 105 (0-150) mg/dl Cholesterol 152 (0-200) mg/dl LDL Cholesterol, Calc 69 mg/dl VLDL Cholesterol, Calc 21 mg/dl HDL Cholesterol 62 mg/dl Cholesterol/HDL Ratio 3 Vitamin B6 Vitamin B12 (193-986) pg/ml Methylmalonic Acid Folate (>5.38) ng/ml TSH (0.300-4.500) uIu/ml Urine Color Urine Appearance (Clear) Urine pH (4.5-7.5) Ur Specific [place] (1.000-1.030) Urine Protein (Negative) Urine Glucose (UA) (Negative) Urine Ketones (Negative) Urine Blood (Negative) Urine Nitrite (Negative) Urine Bilirubin (Negative) Urine Urobilinogen (Negative) Ur Leukocyte Esterase (Negative) Urine WBC (Auto) (0-5) /hpf Urine RBC (Auto) (0-4) /hpf U Hyaline Cast (Auto) (0-5) /lpf U Epithel Cells (Auto) (0-5) /lpf Urine Bacteria (Auto) (Negative) Ur Renal Epithelial Cell Urine Mucus (None Prsent) Fluid Comment CSF Appearance CSF Color Xanthrochromic CSF WBC (0-5) /uL CSF RBC (0-) /uL CSF Cell Count Tube # CSF Chemistry Tube # CSF Glucose (40-70) mg/dl CSF Total Protein (15-45) mg/dl CSF VDRL CSF Lyme IgG (Immblot) CSF Lyme IgG Bands Det CSF Lyme IgM (Immblot) CSF Lyme IgM Bands Det CSF C.neoform/gat PCR (NotDetected) CSF CMV DNA (PCR) (NotDetected) CSF Enterovirus (PCR) (NotDetected) CSF E. coli K1 (PCR) (NotDetected) CSF H. influenzae (PCR) (NotDetected) CSF HSV I (PCR) (NotDetected) CSF HSV II (PCR) (NotDetected) CSF HHV 6 (PCR) (NotDetected) CSF L.monocytogenes PCR (NotDetected) CSF N. meningitidis PCR (NotDetected) CSF Parechovirus (PCR) (NotDetected) CSF S. agalactiae (PCR) (NotDetected) CSF S. pneumoniae (PCR) (NotDetected) CSF VZV DNA (PCR) (NotDetected) Urine Opiates Screen (Neg) Ur Methadone, Qual (Neg) Urine Barbiturates (Neg) Ur Phencyclidine (PCP) (Neg) U Amphetamin/Meth Scrn (Neg) MDMA (Ecstasy) Screen (Neg) U Benzodiazepines Scrn (Neg) Ur Cocaine Metabolite (Neg) U Marijuana (THC) Screen (Neg) U Marijuana THC Carboxy Drug Screen Comment Arsenic Serum Copper Lead Mercury CAROLYN Screen Beta-2-GPI IgG Ab Beta-2-GPI IgA Ab Beta-2-GPI IgM Ab Phosphatidylserine IgG Phosphatidylserine IgA Phosphatidylserine IgM Anti-Phospholipid Intrp Anti-Cardiolipin IgG Ab Anti-Cardiolipin IgA Ab Anti-Cardiolipin IgM Ab RPR 02/11/21 02/11/21 02/11/21 Range/Units 10:10 10:10 07:26 WBC 8.54 (4.8-10.8) K/uL RBC 3.99 L (4.2-5.4) M/uL Hgb 13.5 (12.0-16.0) g/dL Hct 38.7 (37-47) % MCV 97.0 (80-100) fL MCH 33.8 (25-34) pg MCHC 34.9 (32-36) g/dL RDW Std Deviation 46.5 H (36.4-46.3) fL RDW Coeff of Pietro 13.0 (11.5-14.5) % Plt Count 266 (130-400) K/uL MPV 9.8 (7.4-10.4) fL Immature Gran % (Auto) 0.1 % Neut % (Auto) 61.6 % Lymph % (Auto) 29.9 % [place]field % (Auto) 6.2 % Eos % (Auto) 1.8 % Baso % (Auto) 0.4 % Neut # (Auto) 5.27 (1.4-6.5) K/uL Lymph # (Auto) 2.55 (1.2-3.4) K/uL [place]field # (Auto) 0.53 (0.11-0.59) K/uL Eos # (Auto) 0.15 (0-0.5) K/uL Baso # (Auto) 0.03 (0-0.2) K/uL Immature Gran # (Auto) 0.01 (0.00-0.02) K/uL ESR (0-30) mm/hr Carboxyhemoglobin % THgb Sodium (136-145) mmol/L Potassium (3.5-5.1) mmol/L Chloride (98-107) mmol/L Carbon Dioxide (21-32) mmol/L Anion Gap (3-11) BUN (7-18) mg/dl Creatinine (0.6-1.2) mg/dl Est Cr Clr Drug Dosing ml/min Est GFR ( Amer) ml/min Est GFR (Non-Af Amer) ml/min BUN/Creatinine Ratio (10-20) Glucose (70-99) mg/dl POC Glucose 126 H (70-99) mg/dl Estimat Average Glucose Hemoglobin A1c Calcium (8.5-10.1) mg/dl Phosphorus (2.5-4.9) mg/dl Magnesium (1.8-2.4) mg/dl Total Bilirubin (0.2-1) mg/dl AST (15-37) U/L ALT (12-78) U/L Alkaline Phosphatase (45-117) U/L Ammonia (11-32) umol/L Total Protein (6.4-8.2) gm/dl Albumin (3.4-5.0) gm/dl Globulin (2.5-4.0) gm/dl Albumin/Globulin Ratio (0.9-2) Ceruloplasmin Triglycerides (0-150) mg/dl Cholesterol (0-200) mg/dl LDL Cholesterol, Calc mg/dl VLDL Cholesterol, Calc mg/dl HDL Cholesterol mg/dl Cholesterol/HDL Ratio Vitamin B6 Pending Vitamin B12 (193-986) pg/ml Methylmalonic Acid Folate (>5.38) ng/ml TSH (0.300-4.500) uIu/ml Urine Color Urine Appearance (Clear) Urine pH (4.5-7.5) Ur Specific [place] (1.000-1.030) Urine Protein (Negative) Urine Glucose (UA) (Negative) Urine Ketones (Negative) Urine Blood (Negative) Urine Nitrite (Negative) Urine Bilirubin (Negative) Urine Urobilinogen (Negative) Ur Leukocyte Esterase (Negative) Urine WBC (Auto) (0-5) /hpf Urine RBC (Auto) (0-4) /hpf U Hyaline Cast (Auto) (0-5) /lpf U Epithel Cells (Auto) (0-5) /lpf Urine Bacteria (Auto) (Negative) Ur Renal Epithelial Cell Urine Mucus (None Prsent) Fluid Comment CSF Appearance CSF Color Xanthrochromic CSF WBC (0-5) /uL CSF RBC (0-) /uL CSF Cell Count Tube # CSF Chemistry Tube # CSF Glucose (40-70) mg/dl CSF Total Protein (15-45) mg/dl CSF VDRL CSF Lyme IgG (Immblot) CSF Lyme IgG Bands Det CSF Lyme IgM (Immblot) CSF Lyme IgM Bands Det CSF C.neoform/gat PCR (NotDetected) CSF CMV DNA (PCR) (NotDetected) CSF Enterovirus (PCR) (NotDetected) CSF E. coli K1 (PCR) (NotDetected) CSF H. influenzae (PCR) (NotDetected) CSF HSV I (PCR) (NotDetected) CSF HSV II (PCR) (NotDetected) CSF HHV 6 (PCR) (NotDetected) CSF L.monocytogenes PCR (NotDetected) CSF N. meningitidis PCR (NotDetected) CSF Parechovirus (PCR) (NotDetected) CSF S. agalactiae (PCR) (NotDetected) CSF S. pneumoniae (PCR) (NotDetected) CSF VZV DNA (PCR) (NotDetected) Urine Opiates Screen (Neg) Ur Methadone, Qual (Neg) Urine Barbiturates (Neg) Ur Phencyclidine (PCP) (Neg) U Amphetamin/Meth Scrn (Neg) MDMA (Ecstasy) Screen (Neg) U Benzodiazepines Scrn (Neg) Ur Cocaine Metabolite (Neg) U Marijuana (THC) Screen (Neg) U Marijuana THC Carboxy Drug Screen Comment Arsenic Serum Copper Lead Mercury CAROLYN Screen Beta-2-GPI IgG Ab Beta-2-GPI IgA Ab Beta-2-GPI IgM Ab Phosphatidylserine IgG Phosphatidylserine IgA Phosphatidylserine IgM Anti-Phospholipid Intrp Anti-Cardiolipin IgG Ab Anti-Cardiolipin IgA Ab Anti-Cardiolipin IgM Ab RPR 02/10/21 02/10/21 02/10/21 Range/Units 21:13 18:38 18:38 WBC (4.8-10.8) K/uL RBC (4.2-5.4) M/uL Hgb (12.0-16.0) g/dL Hct (37-47) % MCV (80-100) fL MCH (25-34) pg MCHC (32-36) g/dL RDW Std Deviation (36.4-46.3) fL RDW Coeff of Pietro (11.5-14.5) % Plt Count (130-400) K/uL MPV (7.4-10.4) fL Immature Gran % (Auto) % Neut % (Auto) % Lymph % (Auto) % Garfield % (Auto) % Eos % (Auto) % Baso % (Auto) % Neut # (Auto) (1.4-6.5) K/uL Lymph # (Auto) (1.2-3.4) K/uL Garfield # (Auto) (0.11-0.59) K/uL Eos # (Auto) (0-0.5) K/uL Baso # (Auto) (0-0.2) K/uL Immature Gran # (Auto) (0.00-0.02) K/uL ESR (0-30) mm/hr Carboxyhemoglobin % THgb Sodium (136-145) mmol/L Potassium (3.5-5.1) mmol/L Chloride (98-107) mmol/L Carbon Dioxide (21-32) mmol/L Anion Gap (3-11) BUN (7-18) mg/dl Creatinine (0.6-1.2) mg/dl Est Cr Clr Drug Dosing ml/min Est GFR ( Amer) ml/min Est GFR (Non-Af Amer) ml/min BUN/Creatinine Ratio (10-20) Glucose (70-99) mg/dl POC Glucose 115 H (70-99) mg/dl Estimat Average Glucose Hemoglobin A1c Calcium (8.5-10.1) mg/dl Phosphorus (2.5-4.9) mg/dl Magnesium (1.8-2.4) mg/dl Total Bilirubin (0.2-1) mg/dl AST (15-37) U/L ALT (12-78) U/L Alkaline Phosphatase (45-117) U/L Ammonia (11-32) umol/L Total Protein (6.4-8.2) gm/dl Albumin (3.4-5.0) gm/dl Globulin (2.5-4.0) gm/dl Albumin/Globulin Ratio (0.9-2) Ceruloplasmin Triglycerides (0-150) mg/dl Cholesterol (0-200) mg/dl LDL Cholesterol, Calc mg/dl VLDL Cholesterol, Calc mg/dl HDL Cholesterol mg/dl Cholesterol/HDL Ratio Vitamin B6 Vitamin B12 (193-986) pg/ml Methylmalonic Acid Folate (>5.38) ng/ml TSH (0.300-4.500) uIu/ml Urine Color Urine Appearance (Clear) Urine pH (4.5-7.5) Ur Specific [place] (1.000-1.030) Urine Protein (Negative) Urine Glucose (UA) (Negative) Urine Ketones (Negative) Urine Blood (Negative) Urine Nitrite (Negative) Urine Bilirubin (Negative) Urine Urobilinogen (Negative) Ur Leukocyte Esterase (Negative) Urine WBC (Auto) (0-5) /hpf Urine RBC (Auto) (0-4) /hpf U Hyaline Cast (Auto) (0-5) /lpf U Epithel Cells (Auto) (0-5) /lpf Urine Bacteria (Auto) (Negative) Ur Renal Epithelial Cell Urine Mucus (None Prsent) Fluid Comment CSF Appearance Clear CSF Color Colorless Xanthrochromic No xanthochromia CSF WBC 2 (0-5) /uL CSF RBC 1 (0-) /uL CSF Cell Count Tube # 3 CSF Chemistry Tube # 1 CSF Glucose 83 H (40-70) mg/dl CSF Total Protein 68.9 H (15-45) mg/dl CSF VDRL Pending CSF Lyme IgG (Immblot) Pending CSF Lyme IgG Bands Det Pending CSF Lyme IgM (Immblot) Pending CSF Lyme IgM Bands Det Pending CSF C.neoform/gat PCR (NotDetected) CSF CMV DNA (PCR) (NotDetected) CSF Enterovirus (PCR) (NotDetected) CSF E. coli K1 (PCR) (NotDetected) CSF H. influenzae (PCR) (NotDetected) CSF HSV I (PCR) (NotDetected) CSF HSV II (PCR) (NotDetected) CSF HHV 6 (PCR) (NotDetected) CSF L.monocytogenes PCR (NotDetected) CSF N. meningitidis PCR (NotDetected) CSF Parechovirus (PCR) (NotDetected) CSF S. agalactiae (PCR) (NotDetected) CSF S. pneumoniae (PCR) (NotDetected) CSF VZV DNA (PCR) (NotDetected) Urine Opiates Screen (Neg) Ur Methadone, Qual (Neg) Urine Barbiturates (Neg) Ur Phencyclidine (PCP) (Neg) U Amphetamin/Meth Scrn (Neg) MDMA (Ecstasy) Screen (Neg) U Benzodiazepines Scrn (Neg) Ur Cocaine Metabolite (Neg) U Marijuana (THC) Screen (Neg) U Marijuana THC Carboxy Drug Screen Comment Arsenic Serum Copper Lead Mercury CAROLYN Screen Beta-2-GPI IgG Ab Beta-2-GPI IgA Ab Beta-2-GPI IgM Ab Phosphatidylserine IgG Phosphatidylserine IgA Phosphatidylserine IgM Anti-Phospholipid Intrp Anti-Cardiolipin IgG Ab Anti-Cardiolipin IgA Ab Anti-Cardiolipin IgM Ab RPR 02/10/21 02/10/21 02/10/21 Range/Units 18:38 18:23 18:09 WBC (4.8-10.8) K/uL RBC (4.2-5.4) M/uL Hgb (12.0-16.0) g/dL Hct (37-47) % MCV (80-100) fL MCH (25-34) pg MCHC (32-36) g/dL RDW Std Deviation (36.4-46.3) fL RDW Coeff of Pietro (11.5-14.5) % Plt Count (130-400) K/uL MPV (7.4-10.4) fL Immature Gran % (Auto) % Neut % (Auto) % Lymph % (Auto) % [place] % (Auto) % Eos % (Auto) % Baso % (Auto) % Neut # (Auto) (1.4-6.5) K/uL Lymph # (Auto) (1.2-3.4) K/uL [place] # (Auto) (0.11-0.59) K/uL Eos # (Auto) (0-0.5) K/uL Baso # (Auto) (0-0.2) K/uL Immature Gran # (Auto) (0.00-0.02) K/uL ESR (0-30) mm/hr Carboxyhemoglobin % THgb Sodium (136-145) mmol/L Potassium (3.5-5.1) mmol/L Chloride (98-107) mmol/L Carbon Dioxide (21-32) mmol/L Anion Gap (3-11) BUN (7-18) mg/dl Creatinine (0.6-1.2) mg/dl Est Cr Clr Drug Dosing ml/min Est GFR ( Amer) ml/min Est GFR (Non-Af Amer) ml/min BUN/Creatinine Ratio (10-20) Glucose (70-99) mg/dl POC Glucose (70-99) mg/dl Estimat Average Glucose Hemoglobin A1c Calcium (8.5-10.1) mg/dl Phosphorus (2.5-4.9) mg/dl Magnesium (1.8-2.4) mg/dl Total Bilirubin (0.2-1) mg/dl AST (15-37) U/L ALT (12-78) U/L Alkaline Phosphatase (45-117) U/L Ammonia (11-32) umol/L Total Protein (6.4-8.2) gm/dl Albumin (3.4-5.0) gm/dl Globulin (2.5-4.0) gm/dl Albumin/Globulin Ratio (0.9-2) Ceruloplasmin Triglycerides (0-150) mg/dl Cholesterol (0-200) mg/dl LDL Cholesterol, Calc mg/dl VLDL Cholesterol, Calc mg/dl HDL Cholesterol mg/dl Cholesterol/HDL Ratio Vitamin B6 Vitamin B12 1057 H (193-986) pg/ml Methylmalonic Acid Folate > 20.00 (>5.38) ng/ml TSH (0.300-4.500) uIu/ml Urine Color Urine Appearance (Clear) Urine pH (4.5-7.5) Ur Specific [place] (1.000-1.030) Urine Protein (Negative) Urine Glucose (UA) (Negative) Urine Ketones (Negative) Urine Blood (Negative) Urine Nitrite (Negative) Urine Bilirubin (Negative) Urine Urobilinogen (Negative) Ur Leukocyte Esterase (Negative) Urine WBC (Auto) (0-5) /hpf Urine RBC (Auto) (0-4) /hpf U Hyaline Cast (Auto) (0-5) /lpf U Epithel Cells (Auto) (0-5) /lpf Urine Bacteria (Auto) (Negative) Ur Renal Epithelial Cell Urine Mucus (None Prsent) Fluid Comment CSF Appearance CSF Color Xanthrochromic CSF WBC (0-5) /uL CSF RBC (0-) /uL CSF Cell Count Tube # CSF Chemistry Tube # CSF Glucose (40-70) mg/dl CSF Total Protein (15-45) mg/dl CSF VDRL CSF Lyme IgG (Immblot) CSF Lyme IgG Bands Det CSF Lyme IgM (Immblot) CSF Lyme IgM Bands Det CSF C.neoform/gat PCR Not Detected (NotDetected) CSF CMV DNA (PCR) Not Detected (NotDetected) CSF Enterovirus (PCR) Not Detected (NotDetected) CSF E. coli K1 (PCR) Not Detected (NotDetected) CSF H. influenzae (PCR) Not Detected (NotDetected) CSF HSV I (PCR) Not Detected (NotDetected) CSF HSV II (PCR) Not Detected (NotDetected) CSF HHV 6 (PCR) Not Detected (NotDetected) CSF L.monocytogenes PCR Not Detected (NotDetected) CSF N. meningitidis PCR Not Detected (NotDetected) CSF Parechovirus (PCR) Not Detected (NotDetected) CSF S. agalactiae (PCR) Not Detected (NotDetected) CSF S. pneumoniae (PCR) Not Detected (NotDetected) CSF VZV DNA (PCR) Not Detected (NotDetected) Urine Opiates Screen (Neg) Ur Methadone, Qual (Neg) Urine Barbiturates (Neg) Ur Phencyclidine (PCP) (Neg) U Amphetamin/Meth Scrn (Neg) MDMA (Ecstasy) Screen (Neg) U Benzodiazepines Scrn (Neg) Ur Cocaine Metabolite (Neg) U Marijuana (THC) Screen (Neg) U Marijuana THC Carboxy Drug Screen Comment Arsenic Serum Copper Lead Mercury CARLOYN Screen Beta-2-GPI IgG Ab Beta-2-GPI IgA Ab Beta-2-GPI IgM Ab Phosphatidylserine IgG Phosphatidylserine IgA Phosphatidylserine IgM Anti-Phospholipid Intrp Anti-Cardiolipin IgG Ab Anti-Cardiolipin IgA Ab Anti-Cardiolipin IgM Ab RPR Pending Diagnostic Findings MRI brain FINDINGS: No abnormal restricted diffusion is identified. Foci of T2 and FLAIR hyperintensity are noted in the paraventricular areas consistent with chronic small vessel ischemic disease. Ex vacuo ventriculomegaly and sulcal enlargement is noted compatible with diffuse encephalomalacia. There is no evidence of acute intraparenchymal hemorrhage. No extra axial fluid collections are seen. There are no masses, mass effect, or midline shift. No abnormal enhancement is seen. The corpus callosum, pituitary gland, and cerebellar tonsils appear grossly unremarkable. Flow voids of the major intracranial arterial vessels are identified. The imaged portions of the paranasal sinuses, mastoid air cells, and orbits are unremarkable. IMPRESSION: Chronic volume loss and age related white matter changes without evidence of acute abnormality. Medications Administered Current Inpatient Medications Acetaminophen (Acetaminophen 325 Mg Tab) 650 mg PO Q4H PRN PRN Reason: Pain or Fever Stop: 03/12/21 19:29 Dextrose (Dextrose 50% 50 Ml Syringe) 25 - 50 ml IV UD PRN; Protocol PRN Reason: Hypoglycemia Protocol Stop: 03/12/21 19:50 Glucagon (Glucagon For Inj 1 Mg Vial) 1 mg SQ UD PRN; Protocol PRN Reason: Hypoglycemia Protocol Stop: 03/12/21 19:50 Glucose (Glucose 10 Tabs/Tube) 4 - 8 tabs PO UD PRN; Protocol PRN Reason: Hypoglycemia Protocol Stop: 03/12/21 19:50 Glucose (Glucose 40% Gel 15 Gm Tube) 15 - 30 gm PO UD PRN; Protocol PRN Reason: Hypoglycemia Protocol Stop: 03/12/21 19:50 Ceftriaxone Sodium 2,000 mg/ (Dextrose) 70 mls @ 140 mls/hr IV DAILY@2100 [facility] Stop: 02/20/21 20:59 Last Infusion: 02/10/21 23:45 Dose: Infused Documented by: Insulin Aspart (Insulin Aspart 100 Units/Ml 3 Ml Pen) 0 units SC ACHS [facility]IRO Stop: 03/12/21 20:59 Last Admin: 02/10/21 22:25 Dose: Not Given Documented by: Insulin Glargine (Insulin Glargine Solostar 100 Units/Ml 3 Ml Pen) 20 units SC HS [facility]IRO Stop: 03/12/21 20:59 Last Admin: 02/10/21 22:26 Dose: 20 units Documented by: Losartan Potassium (Losartan Potassium 50 Mg Tab) 50 mg PO DAILY [facility] Stop: 03/13/21 08:59 Metoprolol Tartrate (Metoprolol Tartrate 50 Mg Tab) 50 mg PO BID [facility]O Stop: 03/12/21 21:29 Last Admin: 02/10/21 22:26 Dose: 50 mg Documented by: Miscellaneous (Carbohydrates For Hypoglycemia ) 15 - 30 gm PO UD PRN PRN Reason: Hypoglycemia Protocol Stop: 03/12/21 19:50 Miscellaneous Information (Pharmacy Glycemic Mgmt Consult) 1 ea N/A UD PRN PRN Reason: Consult Stop: 03/12/21 19:51 Rosuvastatin Calcium (Rosuvastatin Calcium 20 Mg Tab) 40 mg PO DAILY [facility] Stop: 03/13/21 08:59
[2021-02-11] MEDS: ROSUVASTATIN CALCIUM 20 MG TAB PO SCH (08:42)
[2021-02-11] MEDS: INSULIN ASPART 100 UNITS/ML 3 ML PEN SC SCH ×4 (08:43→20:30)
[2021-02-11] MEDS: METOPROLOL TARTRATE 50 MG TAB PO SCH ×2 (08:43→21:33)
[2021-02-11] MEDS ORDERED: LOSARTAN POTASSIUM 50 MG TAB PO SCH (09:00)
[2021-02-11 10:39] LABS: Basophils # (auto) 0.03 K/uL (0-0.2); Basophils % (auto) 0.4 %; Eosinophils # (auto) 0.15 K/uL (0-0.5); Eosinophils % (auto) 1.8 %; Hematocrit (blood only) 38.7 % (37-47); Hemoglobin 13.5 g/dL (12.0-16.0); Immature Granulocytes # (auto) 0.01 K/uL (0.00-0.02); Immature Granulocytes % (auto) 0.1 %; Lymphocytes # (auto) 2.55 K/uL (1.2-3.4); Lymphocytes % (auto) 29.9 %; Mean Corpuscular Hemoglobin 33.8 pg (25-34); Mean Corpuscular Hgb Conc 34.9 g/dL (32-36); Mean Platelet Volume 9.8 fL (7.4-10.4); Monocytes # (auto) 0.53 K/uL (0.11-0.59); Monocytes % (auto) 6.2 %; Neutrophils # (auto) 5.27 K/uL (1.4-6.5); Neutrophils % (auto) 61.6 %; Platelet Count 266 K/uL (130-400); RDW Standard Deviation 46.5 fL (36.4-46.3); Red Blood Count 3.99 M/uL (4.2-5.4); White Blood Count 8.54 K/uL (4.8-10.8)
[2021-02-11 10:49] LABS: Albumin Level 3.4 gm/dl (3.4-5.0); BUN Creatinine Ratio 16.4 (10-20); Calcium 9.3 mg/dl (8.5-10.1); Est GFR (African American) 101.3 ml/min; Est GFR (Non-African American) 87.4 ml/min; Magnesium 2.1 mg/dl (1.8-2.4); Potassium 3.8 mmol/L (3.5-5.1)
[2021-02-11 11:02] LABS: Albumin Globulin Ratio 0.9 (0.9-2); Bilirubin,Total 0.7 mg/dl (0.2-1); Globulin 3.7 gm/dl (2.5-4.0); Phosphorus 2.7 mg/dl (2.5-4.9); Total Protein 7.1 gm/dl (6.4-8.2)
--- NOTE | 2021-02-11 11:04 | Pharmacy Report ---
Pharmacy Glycemic Short Note 2 - Date of Service February 11, 2021 - Glycemic Short BSG Results (Last 24 hours): 02/10/21 02/10/21 02/10/21 15:22 15:24 21:13 Glucose 138 H POC Glucose 138 H 115 H 02/11/21 02/11/21 07:26 10:10 Glucose 136 H POC Glucose 126 H OUTPATIENT ANTIDIABETIC REGIMEN: * Glargine 38 units SQ HS ASSESSMENT: * 50 year old female admitted with AMS, type 2 diabetic, unknown control, A1c pending. * Reduced dose of Lantus given last night, blood sugars at goal, pt not eating so no NovoLog coverage received yet. * Clear liquid diet ordered. PLAN FOR INPATIENT GLYCEMIC CONTROL: * Basal insulin * Lantus 20 units SQ HS * Bolus insulin * NovoLog per scale ACHS or Q6hrs while NPO * Goal Range: Low 110 mg/dL - High 140 mg/dL * Correction Factor: 30 mg/dL/unit * Nutritional / Prandial insulin per carb ratio of 1 unit per 10 grams CHO consumed PLAN FOR DISCHARGE: * to be determined
[2021-02-11] MEDS: FOLIC ACID 1 MG in SYRINGE 9.8 ML IV SCH (11:09)
[2021-02-11] MEDS: THIAMINE HCL 100 MG in SYRINGE 9 ML IV SCH (11:09)
--- NOTE | 2021-02-11 12:32 | Electroencephalogram ---
EEG Procedure Note Date of Service February 11, 2021 Start / End Times Start Time: 1144 End Time: 1204 Referring Physician Vanessa Nettles MD History one week of increasing confusion with memory loss and agitation with postive lyme serology on antibiotics Home Medication List Medication Instructions Recorded Confirmed Type hydrochlorothiazide 12.5 mg tablet 12.5 mg PO DAILY 05/19/18 02/10/21 History insulin glargine 100 unit/mL 38 unit SUBCUT HS 05/19/18 02/10/21 History subcutaneous solution lactobacillus combination no.4 3 3,000 mmu cells PO DAILY 05/19/18 02/10/21 History billion cell capsule (Probiotic) losartan 25 mg tablet 0 mg PO DAILY 05/19/18 02/10/21 History metoprolol tartrate 50 mg tablet 50 mg PO BID 05/19/18 02/10/21 History omega 7-day-hqy-fish oil 1,000 mg 1 cap PO DAILY 05/19/18 02/10/21 History (120 mg-180 mg) capsule (Fish Oil) rosuvastatin 40 mg tablet (Crestor) 40 mg PO DAILY 05/19/18 02/10/21 History buspirone 10 mg tablet 10 mg PO BID 02/10/21 02/10/21 History doxycycline hyclate 100 mg capsule 100 mg PO BID 02/10/21 02/10/21 History meloxicam 15 mg tablet 15 mg PO DAILY 02/10/21 02/10/21 History Inpatient Medication List Ceftriaxone Sodium 2,000 mg/ (Dextrose) 70 mls @ 140 mls/hr IV DAILY@2100 [facility] Stop: 02/20/21 20:59 Last Infusion: 02/10/21 23:45 Dose: 0 mls/hr Documented by: [id number] Admin: 02/10/21 22:25 Dose: 140 mls/hr Documented by: [id number] Thiamine HCl 100 mg/ Syringe 10 mls @ [facility] Stop: 03/13/21 09:59 Last Admin: 02/11/21 11:09 Dose: 2 mls/min Documented by: [id number] Folic Acid 1 mg/ Syringe 10 mls @ 5 mls/min IV QAM [facility] Stop: 03/13/21 09:59 Last Admin: 02/11/21 11:09 Dose: 5 mls/min Documented by: [id number] Insulin Aspart (Insulin Aspart 100 Units/Ml 3 Ml Pen) 0 units SC ACHS RAMIRO Stop: 03/12/21 20:59 Last Admin: 02/11/21 08:43 Dose: Not Given Documented by: [id number] Admin: 02/10/21 22:25 Dose: Not Given Documented by: [id number] Insulin Glargine (Insulin Glargine Solostar 100 Units/Ml 3 Ml Pen) 20 units SC HS RAMIRO Stop: 03/12/21 20:59 Last Admin: 02/10/21 22:26 Dose: 20 units Documented by: [id number] Cosigned by: [id number] Losartan Potassium (Losartan Potassium 50 Mg Tab) 50 mg PO DAILY [facility] Stop: 03/13/21 08:59 Last Admin: 02/11/21 08:42 Dose: 50 mg Documented by: [id number] Metoprolol Tartrate (Metoprolol Tartrate 50 Mg Tab) 50 mg PO BID [facility]O Stop: 03/12/21 21:29 Last Admin: 02/11/21 08:43 Dose: 50 mg Documented by: [id number] Admin: 02/10/21 22:26 Dose: 50 mg Documented by: [id number] Rosuvastatin Calcium (Rosuvastatin Calcium 20 Mg Tab) 40 mg PO DAILY [facility]O Stop: 03/13/21 08:59 Last Admin: 02/11/21 08:42 Dose: 40 mg Documented by: [id number] Discontinued Medications Gadobutrol (Gadobutrol 10ml Vial) 8 ml IV ONCE ONE Stop: 02/10/21 20:44 Last Admin: 02/10/21 20:44 Dose: 8 ml Documented by: [id number] Sodium Chloride (Nss 1000ml) 1,000 mls @ 999 mls/hr IV .Q1H1M ONE Stop: 02/10/21 19:43 Last Infusion: 02/10/21 21:05 Dose: 0 mls/hr Documented by: [id number] Admin: 02/10/21 19:09 Dose: 999 mls/hr Documented by: [id number] Magnesium Sulfate/Dextrose (Magnesium Sulfate / D5w) 1 gm in 100 mls @ 50 mls/hr IV ONE ONE Stop: 02/10/21 21:35 Last Infusion: 02/11/21 01:48 Dose: 0 mls/hr Documented by: [id number] Admin: 02/10/21 23:48 Dose: 50 mls/hr Documented by: [id number] Ceftriaxone Sodium (Rocephin) 2,000 mg in 70 mls @ 140 mls/hr IV NOW STA Stop: 02/10/21 20:11 Last Admin: 02/11/21 00:30 Dose: Not Given Documented by: [id number] Ioversol (Optiray 320 125ml) 119 ml IV ONCE ONE Stop: 02/10/21 16:03 Last Admin: 02/10/21 16:02 Dose: 1 ml Documented by: [id number] Potassium Chloride (Potassium Chloride Crtab 20 Meq Tabcr) 40 meq PO NOW STA Stop: 02/10/21 19:36 Last Admin: 02/10/21 20:05 Dose: 40 meq Documented by: [id number] Description This is a 21 electrode EEG with a single channel dedicated to limited EKG. The electrodes were placed in accordance with the International 10-20 system. This EEG was obtained as a bedside recording and is of reasonable quality allowing for a lot of muscle and movement artifact. Stimulation was performed. Drowsiness/sleep not recorded When the tracing is interpretable during times when muscle movements are diminished there is evidence for what appears to be normal background rhythm in the alpha range of up to 9 to 10 Hz maximum frequency and of up to 20 to 30 V maximum amplitude. Polymorphic symmetrical central dominant theta activity of modest voltage and slightly lower frequency is present. Beta activity is very difficult to discern due to the movement artifact No potentially epileptogenic activity is seen Examination reveals a minimal driving response Interpretation This EEG between muscle movement artifact is essentially normal during wakefulness without evidence for focal generalized encephalopathy without evidence for potentially epileptogenic activity Clinical Correlation This is a normal EEG during wakefulness without evidence for focal generalized encephalopathy without evidence for potentially epileptogenic activity but is unfortunate compromised by quite a bit of muscle movement activity which has no underlying electroencephalographic correlates Jerome Gonzalez MD
[2021-02-11 14:07] LABS: Appearance Urine Cloudy (Clear); Bacteria Urine Automated 1+ (Negative); Blood Urine Negative (Negative); Color Urine Dark Yellow; Epithelial Cell Urine Auto >30 /lpf (0-5); Glucose Urine UA Negative (Negative); Ketones Urine 1+ (Negative); Leukocyte Esterase Urine 1+ (Negative); Nitrite Urine Negative (Negative); Protein Urine 1+ (Negative); Specific Gravity Urine 1.038 (1.000-1.030); Urobilinogen Urine Negative (Negative); pH Urine 6.5 (4.5-7.5)
[2021-02-11 14:12] LABS: Bilirubin Urine 1+ (Negative)
[2021-02-11 14:31] LABS: Amphetamines+Metham, Urine Neg (Neg); Barbiturates, Urine Neg (Neg); Benzodiazepine, Urine Neg (Neg); Cocaine, Urine Neg (Neg); MDMA (Ecstacy), Urine Neg (Neg); Methadone, Urine Neg (Neg); Opiate, Urine Neg (Neg); Phencyclidine, Urine Neg (Neg)
--- NOTE | 2021-02-11 14:38 | Consultation Report ---
REASON FOR CONSULTATION: Change in mentation. HISTORY OF PRESENT ILLNESS: The patient is 50-year-old presumed right-handed female with diabetes, anxiety, depression, back pain, reflux, hypertension, migraine, pneumothorax, PTSD. On this background, has been in her usual state of health. About a week or so ago, she had numbness in the right arm and right leg and was seen by primary care, who ordered a Lyme titer. Apparently, the prelim was positive, but the confirmatory was negative and she was started on doxycycline. She also had a CT of the head earlier in the week, which was noncontributory. This Friday, which is 6 days ago, her noted that she was quieter. She did not call her spouse from work and drove home without headlight. A coworker told her to stay home. The next day when she was driving to the CAT scan, she was driving erratically. Symptoms persisted. She tended to be staring and quiet, although no kimberley seizure activity was noted and she was never unresponsive. On Friday, they insisted that she seek hospitalization. I had noted some abnormal movements in this patient and unclear if they are at baseline or they are new. Her denies that she has a history of tics or abnormal movements, although he indicates that she can pick out her fingernails if she is anxious and she can repetitively pick up attendant and put down a cigarette. She has no history of psychiatric disease other than depression. He does say that she will sometimes have dream enacting behavior and have hallucinations immediately after waking from sleep. She takes medical marijuana, which she has smoked this week, although smoked somewhat less. He also smoked or used the same product without any adverse effect. Typically she will drink 2 or 3 shots of alcohol per day and then have none for several days. She stopped drinking alcohol several days ago. They deny that they are using anything other than a liquor from a liquor store. No moonshine use. They have been using a space heater recently and they have a CO2 detector, which has been functioning and apparently shows no evidence of rising CO2 levels. The patient's mother has depression and diabetes and either at 53 or 63. She did not know her father and always told her that he was , but now that she has been confused. She says he is alive. Half-sister has depression. Her son has a developmental dyspraxia. A son that is in group home is schizophrenic. In general, her weight has been stable. Her appetite was reduced, but stable. Her sleep has been increased. None of her medicines are new or changed in dose. She is not taking anything [id number] or using any supplements. PAST SURGICAL HISTORY: Tubal ligation, cholecystectomy. FAMILY HISTORY: As above. SOCIAL HISTORY: She smokes, drinks alcohol regularly. Her labs were notable for a glucose of 136, AST of 43, normal ammonia. B6 pending. B12 and folate normal. Thyroid function not performed. CTA of head and neck is unremarkable. MRI of the brain shows T2 signal enhancement in the bilateral globus pallidus, nonspecific, but can be seen in the setting of neurodegenerative metabolic abnormalities. Lymphoma and infections are less likely, but also included in the differential. The patient's electrocardiogram, normal sinus rhythm, nonspecific ST-T wave abnormalities. No change compared to 2019. LP notable for a mildly increased total protein which could be secondary to diabetes ALLERGIES: TO HYDROCODONE AND LISINOPRIL. MEDICATIONS: Her home meds were BuSpar, doxycycline, hydrochlorothiazide, insulin, probiotic, losartan, meloxicam, metoprolol, rosuvastatin. PHYSICAL EXAMINATION: The patient has been intermittently hypertensive with a maximum blood pressure of 149/112 and pulse has ranged from 59 to 108. She has been afebrile. O2 sat is 95% on room air. The patient is awake. She is poorly attentive, oriented only to person. No right/left confusion. Naming is unremarkable. She follows simple commands. She is in no distress. Her neck is supple. There are no carotid bruits. Heart is regular rate and rhythm. Abdomen is soft and nontender. She has some scratches on her left leg, which she says are related to pbeing scratched by a dog. Pupils are dilated and minimally reactive. Optic nerves were grossly normal. Motility revealed slowed saccades, but no extraocular muscle palsies. No facial masking is noted. No head, voice or jaw tremor is noted. There is some cogwheeling at both wrists. The patient is noted to have multiple motor tics. She repetitively reaches for her right ear, sometimes does a little something with her left arm. No focal tics are noted. There is symmetric strength in the uppers and lowers. Symmetrically, mildly diffusely brisk reflexes without pathologic reflexes. Her gait is mildly slow, but not overtly wide-based. IMPRESSION AND PLAN: This patient appears to have an encephalopathy with some abnormal movement, some cogwheel rigidity. Her MRI showing abnormalities in the bilateral globus pallidus. History is not particularly revealing. The differential is broad and includes toxic metabolic etiologies, would check heavy metals, ceruloplasmin, copper, methylmalonic acid, CAROLYN, sed rate, anticardiolipin antibodies, TSH and carbon monoxide level. If that is unremarkable, would check for cyanide. The degenerative processes that can be associated include Eren's disease, [place]'s disease, CJD. I am somewhat suspicious given her abnormal movements and that she has something like [place] however, there is no family history of the same, although her father's medical history is not known. EEG today. I would recommend thiamine supplementation due to her history of alcohol use. Consider evaluation of elevated liver functions if hospitalist thinks reasonable. We will follow with you. Job ID: [id number] [id number]
[2021-02-11 14:40] LABS: Mucus Urine Present (None Prsent)
[2021-02-11 14:41] LABS: RBC Urine Automated 0-4 /hpf (0-4)
--- NOTE | 2021-02-11 19:44 | Electrocardiogram Report ---
Test Reason : Blood Pressure : / mmHG Vent. Rate : 083 BPM Atrial Rate : 083 BPM P-R Int : 120 ms QRS Dur : 088 ms QT Int : 374 ms P-R-T Axes : 072 065 052 degrees QTc Int : 439 ms Poor data quality, interpretation may be adversely affected Normal sinus rhythm Nonspecific ST and T wave abnormality Abnormal ECG When compared with ECG of 19-MAY-2018 16:45, No significant change was found Confirmed by Demarcus Beltre ([id number]) on 02/11/2021 7:44:00 PM Referred By: REFERRED SELF Confirmed By:Demarcus Beltre
[2021-02-11] MEDS: cefTRIAXone SODIUM 2,000 MG in DEXTROSE 5% 50 ML IV SCH (21:32)
[2021-02-11] MEDS: INSULIN GLARGINE SOLOSTAR 100 UNITS/ML 3 ML PEN SC SCH (21:34)
[2021-02-12 06:48] LABS: Basophils # (auto) 0.05 K/uL (0-0.2); Basophils % (auto) 0.6 %; Eosinophils # (auto) 0.17 K/uL (0-0.5); Eosinophils % (auto) 2.1 %; Hemoglobin 13.7 g/dL (12.0-16.0); Immature Granulocytes # (auto) 0.01 K/uL (0.00-0.02); Immature Granulocytes % (auto) 0.1 %; Lymphocytes # (auto) 2.59 K/uL (1.2-3.4); Lymphocytes % (auto) 32.5 %; Mean Corpuscular Hgb Conc 36.1 g/dL (32-36); Mean Corpuscular Volume 97.2 fL (80-100); Mean Platelet Volume 9.5 fL (7.4-10.4); Monocytes # (auto) 0.44 K/uL (0.11-0.59); Monocytes % (auto) 5.5 %; Neutrophils # (auto) 4.71 K/uL (1.4-6.5); Neutrophils % (auto) 59.2 %; Platelet Count 242 K/uL (130-400); RDW Standard Deviation 46.1 fL (36.4-46.3); Red Blood Count 3.91 M/uL (4.2-5.4); White Blood Count 7.97 K/uL (4.8-10.8)
[2021-02-12 07:10] LABS: Albumin Level 3.2 gm/dl (3.4-5.0); BUN Creatinine Ratio 19.1 (10-20); Calcium 9.3 mg/dl (8.5-10.1); Creatinine Clr Calc Pharmacy 113.7 ml/min; Est GFR (African American) 118.9 ml/min; Est GFR (Non-African American) 102.6 ml/min; Potassium 3.4 mmol/L (3.5-5.1)
[2021-02-12 07:13] LABS: Albumin Globulin Ratio 0.8 (0.9-2); Bilirubin,Total 0.6 mg/dl (0.2-1); Globulin 3.8 gm/dl (2.5-4.0)
[2021-02-12 07:50] LABS: Estimated Average Glucose 174 mg/dl; Hemoglobin A1C 7.7 % (4.5-5.6)
[2021-02-12] MEDS ORDERED: POTASSIUM CHLORIDE CRTAB 20 MEQ TABCR PO STA (09:17)
--- NOTE | 2021-02-12 09:30 | Hospitalist Progress Note ---
Date of Service February 12, 2021 Assessment & Plan (1) Acute alteration in mental status: Plan: Progressively worsening mental status over past week Patient unable to do simple tasks, forgetting to turn on the lights in the car, operating coffee machine operating TV, also reported staring episodes Not oriented to place or time, only oriented to herself No numbness weakness, or any other focal deficits Not clear if this is secondary to possible stroke, seizure , drug use, infectious or other etiology Lyme panel in the outpatient setting, obtained, and patient started on doxycycline 1 week ago (however outpt WB negat.) CT head and neck done in the ED unremarkable Patient has history of tobacco, marijuana and alcohol use. Alcohol level undetectable in the ED. Not clear if patient is using any substances Toxicology obtained - positive for marijuana UA, U cultx not c/w UTI Blood cultures NGTD LP done in the ED, results pending Lyme serology obtained in ED, IgM positive, IgG negative, final results pending At home was on doxycycline for 1 week, started on ceftriaxone on admission, cont. for now RPR pending Anaplasma smear - negative, ? PCR Obtained vit. B12, folic acid level - both wnl Ammonia level - 19 (wnl) TSH normal carboxyhemoglobin - normal MRI, EEG - obtained, see below MRI brain - IMPRESSION: Chronic volume loss and age related white matter changes without evidence of acute abnormality. ADDENDUM After additional review, there is abnormal T2 signal and enhancement within the bilateral globus pallidi. This is nonspecific but can be seen in the setting of neurodegenerative/metabolic abnormalities or neural tach since. Lymphoma or infections are considered less likely but also included in the differential. EEG - Interpretation This EEG between muscle movement artifact is essentially normal during wakefulness without evidence for focal generalized encephalopathy without evidence for potentially epileptogenic activity Clinical Correlation This is a normal EEG during wakefulness without evidence for focal generalized encephalopathy without evidence for potentially epileptogenic activity but is unfortunate compromised by quite a bit of muscle movement activity which has no underlying electroencephalographic correlates Neurology consulted, appreciate their input This patient appears to have an encephalopathy with some abnormal movement, some cogwheel rigidity. Her MRI showing abnormalities in the bilateral globus pallid us. History is not particularly revealing. The differential is broad and includes toxic metabolic etiologies, would check heavy metals, ceruloplasmin, copper, methylmalonic acid, CAROLYN, sed rate, anticardiolipin antibodies, TSH and carbon monoxide level. If that is unremarkable, would check for cyanide. The degenerative processes that can be associated include Eren's disease, Birgit's disease, CJD. I am somewhat suspicious given her abnormal movements and that she has something like [place] however, there is no family history of the same, although her father's medical history is not known. Further neuro recommendations: - would consult ID for further recommendations of Lyme + results. CSF lyme resu lts still pending - JANE antibody, HIV, cryoglobulin, ANCA, NMDA, antithyroid - which may correlate with the finding on MRI - possible need for psychiatry consult - continue thiamine/folate replacement - recommend C/A/P CT for neoplastic work up (2) Positive Lyme disease serology: Plan: -Had Lyme disease panel in outpatient setting, and was started on doxycycline, however final results were not conclusive -In the ED, currently IgM positive for Lyme, final results pending -Patient has been on doxycycline, will stop now, will start IV ceftriaxone and continue to monitor closely (3) Hypokalemia: Plan: -Replete and monitor (4) Hypomagnesemia: Plan: -Replete and monitor (5) Diabetes mellitus: Plan: Currently on insulin Current Hgb A1c 7.7% For now decrease home glargine, sliding scale, monitor blood sugars HTN, HLD -Continue home medications, monitor blood pressure Depression -Continue home medications DVT ppx : SCDs for now Code: Full Admission and Anticipated Discharge Date Admission Date: February 10, 2021 Subjective Patient seen in follow-up of altered mental status/confusion Underwent LP in the ED MRI brain obtained EEG obtained Currently laying in bed, in no acute distress. She knows she is in the hospital and her name however cannot tell me anything else. She can not tell me where she lives, what year it is or answer any other simple questions. She denies headache, chest pain, shortness of breath, palpitations, abdominal pain, nausea vomiting. Also denies any backache. Per nursing staff, patient was confused and was pulling her EKG leads. Review of Systems Review of Systems: All systems reviewed & are unremarkable except as noted in Subjective Physical Exam Physical Exam: Constitutional: WD/WN, vitals as above Eyes: PERRL, EOMI, conjunctivae normal, anicteric sclerae ENMT: external ear and nose normal, oropharynx normal Neck: supple Respiratory: normal respiratory effort, lungs clear to auscultation Cardiovascular: RRR, no murmur, no edema Chest : normal inspection of chest Gastrointestinal (Abdomen): normal bowel sounds, soft, nontender Musculoskeletal: extremities motor strength 5/5, moves extremities spontaneously Skin: no rashes, warm and dry Neuro/ Psych: Pt is awake and alert, however not able to answer simple questions appropriately. She does not know where she is, where she lives, what year it is. She is able to tell me her name. She follows simple commands and she is cooperative. She has no weakness in her extremities, and she moves all extremities spontaneously. gait not assessed. Results & Data Results & Data ([facility]) Vital Signs (Past 12 Hours) Vital Signs Temp Pulse Pulse Resp BP BP Pulse Ox 02/12/21 09:06 37 C 71 18 113/81 95 02/12/21 03:27 37.0 C 62 18 109/72 95 02/12/21 00:00 71 02/11/21 23:24 37.0 C 67 18 118/74 95 02/11/21 23:05 37 C 66 16 110/71 96 Laboratory Results 02/12/21 02/12/21 02/12/21 Range/Units 07:20 06:35 06:35 WBC 7.97 (4.8-10.8) K/uL RBC 3.91 L (4.2-5.4) M/uL Hgb 13.7 (12.0-16.0) g/dL Hct 38.0 (37-47) % MCV 97.2 (80-100) fL MCH 35.0 H (25-34) pg MCHC 36.1 H (32-36) g/dL RDW Std Deviation 46.1 (36.4-46.3) fL RDW Coeff of Pietro 13.0 (11.5-14.5) % Plt Count 242 (130-400) K/uL MPV 9.5 (7.4-10.4) fL Immature Gran % (Auto) 0.1 % Neut % (Auto) 59.2 % Lymph % (Auto) 32.5 % [place] % (Auto) 5.5 % Eos % (Auto) 2.1 % Baso % (Auto) 0.6 % Neut # (Auto) 4.71 (1.4-6.5) K/uL Lymph # (Auto) 2.59 (1.2-3.4) K/uL [place] # (Auto) 0.44 (0.11-0.59) K/uL Eos # (Auto) 0.17 (0-0.5) K/uL Baso # (Auto) 0.05 (0-0.2) K/uL Immature Gran # (Auto) 0.01 (0.00-0.02) K/uL ESR (0-30) mm/hr Carboxyhemoglobin % THgb Sodium 142 (136-145) mmol/L Potassium 3.4 L (3.5-5.1) mmol/L Chloride 110 H (98-107) mmol/L Carbon Dioxide 22 (21-32) mmol/L Anion Gap 10.0 (3-11) BUN 12 (7-18) mg/dl Creatinine 0.64 (0.6-1.2) mg/dl Est Cr Clr Drug Dosing 113.7 ml/min Est GFR ( Amer) 118.9 ml/min Est GFR (Non-Af Amer) 102.6 ml/min BUN/Creatinine Ratio 19.1 (10-20) Glucose 112 H (70-99) mg/dl POC Glucose 125 H (70-99) mg/dl Estimat Average Glucose mg/dl Hemoglobin A1c (4.5-5.6) % Calcium 9.3 (8.5-10.1) mg/dl Phosphorus (2.5-4.9) mg/dl Magnesium (1.8-2.4) mg/dl Total Bilirubin 0.6 (0.2-1) mg/dl AST 39 H (15-37) U/L ALT 53 (12-78) U/L Alkaline Phosphatase 81 (45-117) U/L Ammonia (11-32) umol/L Total Protein 7.0 (6.4-8.2) gm/dl Albumin 3.2 L (3.4-5.0) gm/dl Globulin 3.8 (2.5-4.0) gm/dl Albumin/Globulin Ratio 0.8 L (0.9-2) Ceruloplasmin Triglycerides (0-150) mg/dl Cholesterol (0-200) mg/dl LDL Cholesterol, Calc mg/dl VLDL Cholesterol, Calc mg/dl HDL Cholesterol mg/dl Cholesterol/HDL Ratio Vitamin B6 Methylmalonic Acid TSH (0.300-4.500) uIu/ml Urine Color Urine Appearance (Clear) Urine pH (4.5-7.5) Ur Specific [place] (1.000-1.030) Urine Protein (Negative) Urine Glucose (UA) (Negative) Urine Ketones (Negative) Urine Blood (Negative) Urine Nitrite (Negative) Urine Bilirubin (Negative) Urine Urobilinogen (Negative) Ur Leukocyte Esterase (Negative) Urine WBC (Auto) (0-5) /hpf Urine RBC (Auto) (0-4) /hpf U Hyaline Cast (Auto) (0-5) /lpf U Epithel Cells (Auto) (0-5) /lpf Urine Bacteria (Auto) (Negative) Ur Renal Epithelial Cell Urine Mucus (None Prsent) Urine Opiates Screen (Neg) Ur Methadone, Qual (Neg) Urine Barbiturates (Neg) Ur Phencyclidine (PCP) (Neg) U Amphetamin/Meth Scrn (Neg) MDMA (Ecstasy) Screen (Neg) U Benzodiazepines Scrn (Neg) Ur Cocaine Metabolite (Neg) U Marijuana (THC) Screen (Neg) U Marijuana THC Carboxy Drug Screen Comment Arsenic Serum Copper Lead Mercury CAROLYN Screen Beta-2-GPI IgG Ab Beta-2-GPI IgA Ab Beta-2-GPI IgM Ab Phosphatidylserine IgG Phosphatidylserine IgA Phosphatidylserine IgM Anti-Phospholipid Intrp Anti-Cardiolipin IgG Ab Anti-Cardiolipin IgA Ab Anti-Cardiolipin IgM Ab 02/11/21 02/11/21 02/11/21 Range/Units 20:08 16:14 13:49 WBC (4.8-10.8) K/uL RBC (4.2-5.4) M/uL Hgb (12.0-16.0) g/dL Hct (37-47) % MCV (80-100) fL MCH (25-34) pg MCHC (32-36) g/dL RDW Std Deviation (36.4-46.3) fL RDW Coeff of Pietro (11.5-14.5) % Plt Count (130-400) K/uL MPV (7.4-10.4) fL Immature Gran % (Auto) % Neut % (Auto) % Lymph % (Auto) % [place] % (Auto) % Eos % (Auto) % Baso % (Auto) % Neut # (Auto) (1.4-6.5) K/uL Lymph # (Auto) (1.2-3.4) K/uL [place] # (Auto) (0.11-0.59) K/uL Eos # (Auto) (0-0.5) K/uL Baso # (Auto) (0-0.2) K/uL Immature Gran # (Auto) (0.00-0.02) K/uL ESR (0-30) mm/hr Carboxyhemoglobin % THgb Sodium (136-145) mmol/L Potassium (3.5-5.1) mmol/L Chloride (98-107) mmol/L Carbon Dioxide (21-32) mmol/L Anion Gap (3-11) BUN (7-18) mg/dl Creatinine (0.6-1.2) mg/dl Est Cr Clr Drug Dosing ml/min Est GFR ( Amer) ml/min Est GFR (Non-Af Amer) ml/min BUN/Creatinine Ratio (10-20) Glucose (70-99) mg/dl POC Glucose 103 H 105 H (70-99) mg/dl Estimat Average Glucose mg/dl Hemoglobin A1c (4.5-5.6) % Calcium (8.5-10.1) mg/dl Phosphorus (2.5-4.9) mg/dl Magnesium (1.8-2.4) mg/dl Total Bilirubin (0.2-1) mg/dl AST (15-37) U/L ALT (12-78) U/L Alkaline Phosphatase (45-117) U/L Ammonia (11-32) umol/L Total Protein (6.4-8.2) gm/dl Albumin (3.4-5.0) gm/dl Globulin (2.5-4.0) gm/dl Albumin/Globulin Ratio (0.9-2) Ceruloplasmin Triglycerides (0-150) mg/dl Cholesterol (0-200) mg/dl LDL Cholesterol, Calc mg/dl VLDL Cholesterol, Calc mg/dl HDL Cholesterol mg/dl Cholesterol/HDL Ratio Vitamin B6 Methylmalonic Acid TSH (0.300-4.500) uIu/ml Urine Color Urine Appearance (Clear) Urine pH (4.5-7.5) Ur Specific [place] (1.000-1.030) Urine Protein (Negative) Urine Glucose (UA) (Negative) Urine Ketones (Negative) Urine Blood (Negative) Urine Nitrite (Negative) Urine Bilirubin (Negative) Urine Urobilinogen (Negative) Ur Leukocyte Esterase (Negative) Urine WBC (Auto) (0-5) /hpf Urine RBC (Auto) (0-4) /hpf U Hyaline Cast (Auto) (0-5) /lpf U Epithel Cells (Auto) (0-5) /lpf Urine Bacteria (Auto) (Negative) Ur Renal Epithelial Cell Urine Mucus (None Prsent) Urine Opiates Screen (Neg) Ur Methadone, Qual (Neg) Urine Barbiturates (Neg) Ur Phencyclidine (PCP) (Neg) U Amphetamin/Meth Scrn (Neg) MDMA (Ecstasy) Screen (Neg) U Benzodiazepines Scrn (Neg) Ur Cocaine Metabolite (Neg) U Marijuana (THC) Screen (Neg) U Marijuana THC Carboxy Pending Drug Screen Comment Pending Arsenic Serum Copper Lead Mercury CAROLYN Screen Beta-2-GPI IgG Ab Beta-2-GPI IgA Ab Beta-2-GPI IgM Ab Phosphatidylserine IgG Phosphatidylserine IgA Phosphatidylserine IgM Anti-Phospholipid Intrp Anti-Cardiolipin IgG Ab Anti-Cardiolipin IgA Ab Anti-Cardiolipin IgM Ab 02/11/21 02/11/21 02/11/21 Range/Units 13:49 13:49 12:06 WBC (4.8-10.8) K/uL RBC (4.2-5.4) M/uL Hgb (12.0-16.0) g/dL Hct (37-47) % MCV (80-100) fL MCH (25-34) pg MCHC (32-36) g/dL RDW Std Deviation (36.4-46.3) fL RDW Coeff of Pietro (11.5-14.5) % Plt Count (130-400) K/uL MPV (7.4-10.4) fL Immature Gran % (Auto) % Neut % (Auto) % Lymph % (Auto) % [place] % (Auto) % Eos % (Auto) % Baso % (Auto) % Neut # (Auto) (1.4-6.5) K/uL Lymph # (Auto) (1.2-3.4) K/uL [place] # (Auto) (0.11-0.59) K/uL Eos # (Auto) (0-0.5) K/uL Baso # (Auto) (0-0.2) K/uL Immature Gran # (Auto) (0.00-0.02) K/uL ESR (0-30) mm/hr Carboxyhemoglobin 0.0 % THgb Sodium (136-145) mmol/L Potassium (3.5-5.1) mmol/L Chloride (98-107) mmol/L Carbon Dioxide (21-32) mmol/L Anion Gap (3-11) BUN (7-18) mg/dl Creatinine (0.6-1.2) mg/dl Est Cr Clr Drug Dosing ml/min Est GFR ( Amer) ml/min Est GFR (Non-Af Amer) ml/min BUN/Creatinine Ratio (10-20) Glucose (70-99) mg/dl POC Glucose (70-99) mg/dl Estimat Average Glucose mg/dl Hemoglobin A1c (4.5-5.6) % Calcium (8.5-10.1) mg/dl Phosphorus (2.5-4.9) mg/dl Magnesium (1.8-2.4) mg/dl Total Bilirubin (0.2-1) mg/dl AST (15-37) U/L ALT (12-78) U/L Alkaline Phosphatase (45-117) U/L Ammonia (11-32) umol/L Total Protein (6.4-8.2) gm/dl Albumin (3.4-5.0) gm/dl Globulin (2.5-4.0) gm/dl Albumin/Globulin Ratio (0.9-2) Ceruloplasmin Triglycerides (0-150) mg/dl Cholesterol (0-200) mg/dl LDL Cholesterol, Calc mg/dl VLDL Cholesterol, Calc mg/dl HDL Cholesterol mg/dl Cholesterol/HDL Ratio Vitamin B6 Methylmalonic Acid TSH (0.300-4.500) uIu/ml Urine Color Dark Yellow Urine Appearance Cloudy A (Clear) Urine pH 6.5 (4.5-7.5) Ur Specific [place] 1.038 H (1.000-1.030) Urine Protein 1+ H (Negative) Urine Glucose (UA) Negative (Negative) Urine Ketones 1+ H (Negative) Urine Blood Negative (Negative) Urine Nitrite Negative (Negative) Urine Bilirubin 1+ H (Negative) Urine Urobilinogen Negative (Negative) Ur Leukocyte Esterase 1+ H (Negative) Urine WBC (Auto) 5-10 H (0-5) /hpf Urine RBC (Auto) 0-4 (0-4) /hpf U Hyaline Cast (Auto) 1-5 (0-5) /lpf U Epithel Cells (Auto) >30 H (0-5) /lpf Urine Bacteria (Auto) 1+ H (Negative) Ur Renal Epithelial Cell Not Reportable Urine Mucus Present A (None Prsent) Urine Opiates Screen Neg (Neg) Ur Methadone, Qual Neg (Neg) Urine Barbiturates Neg (Neg) Ur Phencyclidine (PCP) Neg (Neg) U Amphetamin/Meth Scrn Neg (Neg) MDMA (Ecstasy) Screen Neg (Neg) U Benzodiazepines Scrn Neg (Neg) Ur Cocaine Metabolite Neg (Neg) U Marijuana (THC) Screen Pos H (Neg) U Marijuana THC Carboxy Drug Screen Comment Arsenic Serum Copper Lead Mercury CAROLYN Screen Beta-2-GPI IgG Ab Beta-2-GPI IgA Ab Beta-2-GPI IgM Ab Phosphatidylserine IgG Phosphatidylserine IgA Phosphatidylserine IgM Anti-Phospholipid Intrp Anti-Cardiolipin IgG Ab Anti-Cardiolipin IgA Ab Anti-Cardiolipin IgM Ab 02/11/21 02/11/21 02/11/21 Range/Units 12:06 12:06 12:06 WBC (4.8-10.8) K/uL RBC (4.2-5.4) M/uL Hgb (12.0-16.0) g/dL Hct (37-47) % MCV (80-100) fL MCH (25-34) pg MCHC (32-36) g/dL RDW Std Deviation (36.4-46.3) fL RDW Coeff of Pietro (11.5-14.5) % Plt Count (130-400) K/uL MPV (7.4-10.4) fL Immature Gran % (Auto) % Neut % (Auto) % Lymph % (Auto) % [place] % (Auto) % Eos % (Auto) % Baso % (Auto) % Neut # (Auto) (1.4-6.5) K/uL Lymph # (Auto) (1.2-3.4) K/uL [place] # (Auto) (0.11-0.59) K/uL Eos # (Auto) (0-0.5) K/uL Baso # (Auto) (0-0.2) K/uL Immature Gran # (Auto) (0.00-0.02) K/uL ESR 17 (0-30) mm/hr Carboxyhemoglobin % THgb Sodium (136-145) mmol/L Potassium (3.5-5.1) mmol/L Chloride (98-107) mmol/L Carbon Dioxide (21-32) mmol/L Anion Gap (3-11) BUN (7-18) mg/dl Creatinine (0.6-1.2) mg/dl Est Cr Clr Drug Dosing ml/min Est GFR ( Amer) ml/min Est GFR (Non-Af Amer) ml/min BUN/Creatinine Ratio (10-20) Glucose (70-99) mg/dl POC Glucose (70-99) mg/dl Estimat Average Glucose mg/dl Hemoglobin A1c (4.5-5.6) % Calcium (8.5-10.1) mg/dl Phosphorus (2.5-4.9) mg/dl Magnesium (1.8-2.4) mg/dl Total Bilirubin (0.2-1) mg/dl AST (15-37) U/L ALT (12-78) U/L Alkaline Phosphatase (45-117) U/L Ammonia (11-32) umol/L Total Protein (6.4-8.2) gm/dl Albumin (3.4-5.0) gm/dl Globulin (2.5-4.0) gm/dl Albumin/Globulin Ratio (0.9-2) Ceruloplasmin Pending Triglycerides (0-150) mg/dl Cholesterol (0-200) mg/dl LDL Cholesterol, Calc mg/dl VLDL Cholesterol, Calc mg/dl HDL Cholesterol mg/dl Cholesterol/HDL Ratio Vitamin B6 Methylmalonic Acid Pending TSH 0.628 (0.300-4.500) uIu/ml Urine Color Urine Appearance (Clear) Urine pH (4.5-7.5) Ur Specific [place] (1.000-1.030) Urine Protein (Negative) Urine Glucose (UA) (Negative) Urine Ketones (Negative) Urine Blood (Negative) Urine Nitrite (Negative) Urine Bilirubin (Negative) Urine Urobilinogen (Negative) Ur Leukocyte Esterase (Negative) Urine WBC (Auto) (0-5) /hpf Urine RBC (Auto) (0-4) /hpf U Hyaline Cast (Auto) (0-5) /lpf U Epithel Cells (Auto) (0-5) /lpf Urine Bacteria (Auto) (Negative) Ur Renal Epithelial Cell Urine Mucus (None Prsent) Urine Opiates Screen (Neg) Ur Methadone, Qual (Neg) Urine Barbiturates (Neg) Ur Phencyclidine (PCP) (Neg) U Amphetamin/Meth Scrn (Neg) MDMA (Ecstasy) Screen (Neg) U Benzodiazepines Scrn (Neg) Ur Cocaine Metabolite (Neg) U Marijuana (THC) Screen (Neg) U Marijuana THC Carboxy Drug Screen Comment Arsenic Pending Serum Copper Pending Lead Pending Mercury Pending CAROLYN Screen Pending Beta-2-GPI IgG Ab Pending Beta-2-GPI IgA Ab Pending Beta-2-GPI IgM Ab Pending Phosphatidylserine IgG Pending Phosphatidylserine IgA Pending Phosphatidylserine IgM Pending Anti-Phospholipid Intrp Pending Anti-Cardiolipin IgG Ab Pending Anti-Cardiolipin IgA Ab Pending Anti-Cardiolipin IgM Ab Pending 02/11/21 02/11/21 02/11/21 Range/Units 11:25 10:10 10:10 WBC (4.8-10.8) K/uL RBC (4.2-5.4) M/uL Hgb (12.0-16.0) g/dL Hct (37-47) % MCV (80-100) fL MCH (25-34) pg MCHC (32-36) g/dL RDW Std Deviation (36.4-46.3) fL RDW Coeff of Pietro (11.5-14.5) % Plt Count (130-400) K/uL MPV (7.4-10.4) fL Immature Gran % (Auto) % Neut % (Auto) % Lymph % (Auto) % [place] % (Auto) % Eos % (Auto) % Baso % (Auto) % Neut # (Auto) (1.4-6.5) K/uL Lymph # (Auto) (1.2-3.4) K/uL [place] # (Auto) (0.11-0.59) K/uL Eos # (Auto) (0-0.5) K/uL Baso # (Auto) (0-0.2) K/uL Immature Gran # (Auto) (0.00-0.02) K/uL ESR (0-30) mm/hr Carboxyhemoglobin % THgb Sodium (136-145) mmol/L Potassium (3.5-5.1) mmol/L Chloride (98-107) mmol/L Carbon Dioxide (21-32) mmol/L Anion Gap (3-11) BUN (7-18) mg/dl Creatinine (0.6-1.2) mg/dl Est Cr Clr Drug Dosing ml/min Est GFR ( Amer) ml/min Est GFR (Non-Af Amer) ml/min BUN/Creatinine Ratio (10-20) Glucose (70-99) mg/dl POC Glucose 119 H (70-99) mg/dl Estimat Average Glucose 174 mg/dl Hemoglobin A1c 7.7 H (4.5-5.6) % Calcium (8.5-10.1) mg/dl Phosphorus (2.5-4.9) mg/dl Magnesium (1.8-2.4) mg/dl Total Bilirubin (0.2-1) mg/dl AST (15-37) U/L ALT (12-78) U/L Alkaline Phosphatase (45-117) U/L Ammonia 19.0 (11-32) umol/L Total Protein (6.4-8.2) gm/dl Albumin (3.4-5.0) gm/dl Globulin (2.5-4.0) gm/dl Albumin/Globulin Ratio (0.9-2) Ceruloplasmin Triglycerides (0-150) mg/dl Cholesterol (0-200) mg/dl LDL Cholesterol, Calc mg/dl VLDL Cholesterol, Calc mg/dl HDL Cholesterol mg/dl Cholesterol/HDL Ratio Vitamin B6 Methylmalonic Acid TSH (0.300-4.500) uIu/ml Urine Color Urine Appearance (Clear) Urine pH (4.5-7.5) Ur Specific [place] (1.000-1.030) Urine Protein (Negative) Urine Glucose (UA) (Negative) Urine Ketones (Negative) Urine Blood (Negative) Urine Nitrite (Negative) Urine Bilirubin (Negative) Urine Urobilinogen (Negative) Ur Leukocyte Esterase (Negative) Urine WBC (Auto) (0-5) /hpf Urine RBC (Auto) (0-4) /hpf U Hyaline Cast (Auto) (0-5) /lpf U Epithel Cells (Auto) (0-5) /lpf Urine Bacteria (Auto) (Negative) Ur Renal Epithelial Cell Urine Mucus (None Prsent) Urine Opiates Screen (Neg) Ur Methadone, Qual (Neg) Urine Barbiturates (Neg) Ur Phencyclidine (PCP) (Neg) U Amphetamin/Meth Scrn (Neg) MDMA (Ecstasy) Screen (Neg) U Benzodiazepines Scrn (Neg) Ur Cocaine Metabolite (Neg) U Marijuana (THC) Screen (Neg) U Marijuana THC Carboxy Drug Screen Comment Arsenic Serum Copper Lead Mercury CAROLYN Screen Beta-2-GPI IgG Ab Beta-2-GPI IgA Ab Beta-2-GPI IgM Ab Phosphatidylserine IgG Phosphatidylserine IgA Phosphatidylserine IgM Anti-Phospholipid Intrp Anti-Cardiolipin IgG Ab Anti-Cardiolipin IgA Ab Anti-Cardiolipin IgM Ab 02/11/21 02/11/21 02/11/21 Range/Units 10:10 10:10 10:10 WBC 8.54 (4.8-10.8) K/uL RBC 3.99 L (4.2-5.4) M/uL Hgb 13.5 (12.0-16.0) g/dL Hct 38.7 (37-47) % MCV 97.0 (80-100) fL MCH 33.8 (25-34) pg MCHC 34.9 (32-36) g/dL RDW Std Deviation 46.5 H (36.4-46.3) fL RDW Coeff of Pietro 13.0 (11.5-14.5) % Plt Count 266 (130-400) K/uL MPV 9.8 (7.4-10.4) fL Immature Gran % (Auto) 0.1 % Neut % (Auto) 61.6 % Lymph % (Auto) 29.9 % [place] % (Auto) 6.2 % Eos % (Auto) 1.8 % Baso % (Auto) 0.4 % Neut # (Auto) 5.27 (1.4-6.5) K/uL Lymph # (Auto) 2.55 (1.2-3.4) K/uL [place] # (Auto) 0.53 (0.11-0.59) K/uL Eos # (Auto) 0.15 (0-0.5) K/uL Baso # (Auto) 0.03 (0-0.2) K/uL Immature Gran # (Auto) 0.01 (0.00-0.02) K/uL ESR (0-30) mm/hr Carboxyhemoglobin % THgb Sodium 139 (136-145) mmol/L Potassium 3.8 D (3.5-5.1) mmol/L Chloride 106 (98-107) mmol/L Carbon Dioxide 27 (21-32) mmol/L Anion Gap 6.0 (3-11) BUN 13 (7-18) mg/dl Creatinine 0.78 (0.6-1.2) mg/dl Est Cr Clr Drug Dosing 95.0 ml/min Est GFR ( Amer) 101.3 ml/min Est GFR (Non-Af Amer) 87.4 ml/min BUN/Creatinine Ratio 16.4 (10-20) Glucose 136 H (70-99) mg/dl POC Glucose (70-99) mg/dl Estimat Average Glucose mg/dl Hemoglobin A1c (4.5-5.6) % Calcium 9.3 (8.5-10.1) mg/dl Phosphorus 2.7 (2.5-4.9) mg/dl Magnesium 2.1 (1.8-2.4) mg/dl Total Bilirubin 0.7 (0.2-1) mg/dl AST 43 H (15-37) U/L ALT 57 (12-78) U/L Alkaline Phosphatase 90 (45-117) U/L Ammonia (11-32) umol/L Total Protein 7.1 (6.4-8.2) gm/dl Albumin 3.4 (3.4-5.0) gm/dl Globulin 3.7 (2.5-4.0) gm/dl Albumin/Globulin Ratio 0.9 (0.9-2) Ceruloplasmin Triglycerides 105 (0-150) mg/dl Cholesterol 152 (0-200) mg/dl LDL Cholesterol, Calc 69 mg/dl VLDL Cholesterol, Calc 21 mg/dl HDL Cholesterol 62 mg/dl Cholesterol/HDL Ratio 3 Vitamin B6 Pending Methylmalonic Acid TSH (0.300-4.500) uIu/ml Urine Color Urine Appearance (Clear) Urine pH (4.5-7.5) Ur Specific Goehner (1.000-1.030) Urine Protein (Negative) Urine Glucose (UA) (Negative) Urine Ketones (Negative) Urine Blood (Negative) Urine Nitrite (Negative) Urine Bilirubin (Negative) Urine Urobilinogen (Negative) Ur Leukocyte Esterase (Negative) Urine WBC (Auto) (0-5) /hpf Urine RBC (Auto) (0-4) /hpf U Hyaline Cast (Auto) (0-5) /lpf U Epithel Cells (Auto) (0-5) /lpf Urine Bacteria (Auto) (Negative) Ur Renal Epithelial Cell Urine Mucus (None Prsent) Urine Opiates Screen (Neg) Ur Methadone, Qual (Neg) Urine Barbiturates (Neg) Ur Phencyclidine (PCP) (Neg) U Amphetamin/Meth Scrn (Neg) MDMA (Ecstasy) Screen (Neg) U Benzodiazepines Scrn (Neg) Ur Cocaine Metabolite (Neg) U Marijuana (THC) Screen (Neg) U Marijuana THC Carboxy Drug Screen Comment Arsenic Serum Copper Lead Mercury CAROLYN Screen Beta-2-GPI IgG Ab Beta-2-GPI IgA Ab Beta-2-GPI IgM Ab Phosphatidylserine IgG Phosphatidylserine IgA Phosphatidylserine IgM Anti-Phospholipid Intrp Anti-Cardiolipin IgG Ab Anti-Cardiolipin IgA Ab Anti-Cardiolipin IgM Ab Medications Administered Current Inpatient Medications Acetaminophen (Acetaminophen 325 Mg Tab) 650 mg PO Q4H PRN PRN Reason: Pain or Fever Stop: 03/12/21 19:29 Dextrose (Dextrose 50% 50 Ml Syringe) 25 - 50 ml IV UD PRN; Protocol PRN Reason: Hypoglycemia Protocol Stop: 03/12/21 19:50 Glucagon (Glucagon For Inj 1 Mg Vial) 1 mg SQ UD PRN; Protocol PRN Reason: Hypoglycemia Protocol Stop: 03/12/21 19:50 Glucose (Glucose 10 Tabs/Tube) 4 - 8 tabs PO UD PRN; Protocol PRN Reason: Hypoglycemia Protocol Stop: 03/12/21 19:50 Glucose (Glucose 40% Gel 15 Gm Tube) 15 - 30 gm PO UD PRN; Protocol PRN Reason: Hypoglycemia Protocol Stop: 03/12/21 19:50 Ceftriaxone Sodium 2,000 mg/ (Dextrose) 70 mls @ 140 mls/hr IV DAILY@2100 [facility] Stop: 02/20/21 20:59 Last Infusion: 02/11/21 22:05 Dose: Infused Documented by: Thiamine HCl 100 mg/ Syringe 10 mls @ 2 mls/min IV QAM [facility] Stop: 03/13/21 09:59 Last Admin: 02/11/21 11:09 Dose: 2 mls/min Documented by: Folic Acid 1 mg/ Syringe 10 mls @ 5 mls/min IV QAM [facility] Stop: 03/13/21 09:59 Last Admin: 02/11/21 11:09 Dose: 5 mls/min Documented by: Insulin Aspart (Insulin Aspart 100 Units/Ml 3 Ml Pen) 0 units SC ACHS [facility] Stop: 03/12/21 20:59 Last Admin: 02/11/21 20:30 Dose: Not Given Documented by: Insulin Glargine (Insulin Glargine Solostar 100 Units/Ml 3 Ml Pen) 20 units SC HS [facility] Stop: 03/12/21 20:59 Last Admin: 02/11/21 21:34 Dose: 20 units Documented by: Metoprolol Tartrate (Metoprolol Tartrate 50 Mg Tab) 50 mg PO BID [facility] Stop: 03/12/21 21:29 Last Admin: 02/11/21 21:33 Dose: 50 mg Documented by: Miscellaneous (Carbohydrates For Hypoglycemia ) 15 - 30 gm PO UD PRN PRN Reason: Hypoglycemia Protocol Stop: 03/12/21 19:50 Miscellaneous Information (Pharmacy Glycemic Mgmt Consult) 1 ea N/A UD PRN PRN Reason: Consult Stop: 03/12/21 19:51 Rosuvastatin Calcium (Rosuvastatin Calcium 20 Mg Tab) 40 mg PO DAILY [facility] Stop: 03/13/21 08:59 Last Admin: 02/11/21 08:42 Dose: 40 mg Documented by:
[2021-02-12] MEDS: INSULIN ASPART 100 UNITS/ML 3 ML PEN SC SCH ×4 (09:35→21:05)
[2021-02-12] MEDS: FOLIC ACID 1 MG in SYRINGE 9.8 ML IV SCH (09:39)
[2021-02-12] MEDS: THIAMINE HCL 100 MG in SYRINGE 9 ML IV SCH (09:39)
[2021-02-12] MEDS: METOPROLOL TARTRATE 50 MG TAB PO SCH ×2 (09:40→21:31)
[2021-02-12] MEDS: ROSUVASTATIN CALCIUM 20 MG TAB PO SCH (09:40)
--- NOTE | 2021-02-12 11:11 | Pharmacy Report ---
Pharmacy Glycemic Short Note 2 - Date of Service February 12, 2021 - Glycemic Short BSG Results (Last 24 hours): 02/11/21 02/11/21 02/11/21 11:25 16:14 20:08 Glucose POC Glucose 119 H 105 H 103 H 02/12/21 02/12/21 02/12/21 06:35 07:20 11:01 Glucose 112 H POC Glucose 125 H 119 H OUTPATIENT ANTIDIABETIC REGIMEN: * Glargine 38 units SQ HS ASSESSMENT: 02/12 * Patient received total of 20 units of insulin yesterday, of which all were basal (this is a reduced dose from outpatient dose) * Ordered clear liquid diet, however no PO intake noted with novolog coverage * BSGs well controlled over last 48 hrs on regimen, no change today 02/11 * 50 year old female admitted with AMS, type 2 diabetic, unknown control, A1c pending. * Reduced dose of Lantus given last night, blood sugars at goal, pt not eating so no NovoLog coverage received yet. * Clear liquid diet ordered. PLAN FOR INPATIENT GLYCEMIC CONTROL: * Basal insulin * Lantus 20 units SQ HS * Bolus insulin * NovoLog per scale ACHS or Q6hrs while NPO * Goal Range: Low 110 mg/dL - High 140 mg/dL * Correction Factor: 30 mg/dL/unit * Nutritional / Prandial insulin per carb ratio of 1 unit per 10 grams CHO consumed PLAN FOR DISCHARGE: * A1c 7.7 % - goal ~7% * Reasonable to continue home insulin regimen on discharge as long as no contraindications present. Since home regimen for insulin is all basal, would ensure patient not experiencing any hypoglycemia at home
--- NOTE | 2021-02-12 12:32 | Neurology Progress Note ---
Date of Service February 12, 2021 Assessment & Plan (1) Acute alteration in mental status: Plan: 1. MRI - T2 signal and enhancement within the bilateral globus pallidi 2. would consult ID for further recommendations of Lyme + results. CSF lyme results still pending 3. will order JANE antibody, HIV, cryoglobulin, ANCA, NMDA, antithyroid - which may correlate with the finding on MRI all will be collected in the am 4. possible need for psych consult 5. continue thiamine/folate replacement 6. if nothing revealing in labs may need transferred to [facility] for further evaluation 7. recommend C/A/P CT for neoplastic work up (2) Positive Lyme disease serology: Plan: 1. consult ID for further recommendations Admission and Anticipated Discharge Date Admission Date: February 10, 2021 Supervising Physician Co-Signing Physician Notes I have seen and discussed above patient with Dr Vanessa Nettles, neurology. The patient was seen and examined. Her carboxyhemoglobin level was normal. Sed rate was normal EEG surprisingly normal. TSH normal she is awake poorly attentive oriented to person. She has no kimberley right left confusion. Naming is slow but she is able to do so. There is no spontaneous speech. Her neck is supple there is no fixed gaze preference. No facial masking no tremor is noted no rigidity is noted. She does appear to have a little bit of cogwheeling at the wrist. I did not notice any chorea or tics or ballistic movement. Her strength was grossly symmetric her reflexes were symmetric there was no clonus but there is a question of whether or not the right toe is upgoing This patient has an encephalopathy of unclear etiology she has T2 signal abnormalities in the bilateral globus pallidus. The differential is toxic metabolic autoimmune paraneoplastic. We have ordered some additional labs including antigad antibody given that she is diabetic anti and MDA antibody antithyroid antibodies. HIV Lumbar puncture to date only notable for a mild increase in total protein, nonspecific Would recommend discussion with infectious disease regarding the interpretation of her Lyme titer. There absence of white cells in the CSF argues strongly against central nervous system Lyme. Consider paraneoplastic work-up including CT of the chest abdomen and pelvis. If these are unremarkable patient may need transfer to a tertiary care center Vanessa Cruz Emily is a 50 year old female who presented to [facility] 02/11/2021 with confusion and memory issues for the past week. Memory issues were progressively but gotten worse. She would forget to put her seatbelt on and would forget to turn the head lights on when she is driving at night. She was once wearing her robe and then asked her son where her robe was. She was making coffee and instead of putting the water in the reservoir she put it over the filter. She will sometimes stare into space and take a long time to answer any questions. Her doctor put her on doxycycline about a week and a half ago because she had a partially positive Lyme test. Today she has been up walking with PT but needs redirected to stay focused on what she is doing. She didn't sleep well last night and did nap for a while today. denies pain. Review of Systems Review of Systems: Unobtainable due to cognitive status Physical Exam Physical Exam: Physical Exam: Constitutional: appearance nourished, healthy and flat affect Ears, Nose, Mouth and Throat: mucous membranes moist, no injection and skin normal, eyes normal Cardiovascular: normal S-1 and S-2 and regular rate and rhythm Respiratory: course breath sounds Musculoskeletal: no peripheral edema and good distal pulses Skin: no stigmata of neurocutaneous disease noted and normal and intact Eyes: extraocular muscles intact (EOMI) NEUROLOGIC EXAMINATION: Mental status: Alert and minimally interactive she knows she is in a hospital but not the name, not year, or where she lives Oriented to person Speech hesistant with speech Cranial Nerves smile eye brow raise symmetric Reflexes: Deep tendon reflexes were symmetrical and graded 2/5. Sensory: no sensory deficits to light cool touch Coordination: finger to nose has hard time following directions, no abnormal movements Gait/Stance: Posture lying in bed Motor: Negative for pronator drift of out stretched arms with eyes closed. 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) Vital Signs (Past 12 Hours) Vital Signs Temp Pulse Pulse Resp BP BP Pulse Ox 02/12/21 09:48 82 02/12/21 09:06 37 C 71 18 113/81 95 02/12/21 03:27 37.0 C 62 18 109/72 95 Laboratory Results Abnormal lab results 02/11/21 02/11/21 02/11/21 Range/Units 10:10 16:14 20:08 RBC (4.2-5.4) M/uL MCH (25-34) pg MCHC (32-36) g/dL Potassium (3.5-5.1) mmol/L Chloride (98-107) mmol/L Glucose (70-99) mg/dl POC Glucose 105 H 103 H (70-99) mg/dl Hemoglobin A1c 7.7 H (4.5-5.6) % AST (15-37) U/L Albumin (3.4-5.0) gm/dl Albumin/Globulin Ratio (0.9-2) 02/12/21 02/12/21 02/12/21 Range/Units 06:35 06:35 07:20 RBC 3.91 L (4.2-5.4) M/uL MCH 35.0 H (25-34) pg MCHC 36.1 H (32-36) g/dL Potassium 3.4 L (3.5-5.1) mmol/L Chloride 110 H (98-107) mmol/L Glucose 112 H (70-99) mg/dl POC Glucose 125 H (70-99) mg/dl Hemoglobin A1c (4.5-5.6) % AST 39 H (15-37) U/L Albumin 3.2 L (3.4-5.0) gm/dl Albumin/Globulin Ratio 0.8 L (0.9-2) 02/12/21 Range/Units 11:01 RBC (4.2-5.4) M/uL MCH (25-34) pg MCHC (32-36) g/dL Potassium (3.5-5.1) mmol/L Chloride (98-107) mmol/L Glucose (70-99) mg/dl POC Glucose 119 H (70-99) mg/dl Hemoglobin A1c (4.5-5.6) % AST (15-37) U/L Albumin (3.4-5.0) gm/dl Albumin/Globulin Ratio (0.9-2) Diagnostic Findings MRI brain-Chronic volume loss and age related white matter changes without evidence of acute abnormality. After additional review, there is abnormal T2 signal and enhancement within the bilateral globus pallidi. This is nonspecific but can be seen in the setting of neurodegenerative/metabolic abnormalities or neural tach since. Lymphoma or infections are considered less likely but also included in the differential. CTA head/neck-No occlusion, hemodynamically significant stenosis, aneurysm, dissection, or arteriovenous malformation in the major intracranial arteries. No occlusion, hemodynamically significant stenosis, or dissection in the major cervical arteries. Visualized brain parenchyma is unremarkable.
[2021-02-12] MEDS: cefTRIAXone SODIUM 2,000 MG in DEXTROSE 5% 50 ML IV SCH (21:32)
[2021-02-12] MEDS: INSULIN GLARGINE SOLOSTAR 100 UNITS/ML 3 ML PEN SC SCH (21:32)
[2021-02-13 06:23] LABS: Hematocrit (blood only) 40.3 % (37-47); Mean Corpuscular Hemoglobin 33.6 pg (25-34); Mean Corpuscular Hgb Conc 34.7 g/dL (32-36); Mean Corpuscular Volume 96.6 fL (80-100); Mean Platelet Volume 9.6 fL (7.4-10.4); Platelet Count 279 K/uL (130-400); RDW Standard Deviation 45.6 fL (36.4-46.3); Red Blood Count 4.17 M/uL (4.2-5.4); White Blood Count 7.42 K/uL (4.8-10.8)
[2021-02-13 06:51] LABS: BUN Creatinine Ratio 16.8 (10-20); Calcium 9.7 mg/dl (8.5-10.1); Creatinine Clr Calc Pharmacy 104.3 ml/min; Est GFR (African American) 115.5 ml/min; Est GFR (Non-African American) 99.6 ml/min; Magnesium 2.2 mg/dl (1.8-2.4); Potassium 3.4 mmol/L (3.5-5.1)
[2021-02-13] MEDS: THIAMINE HCL 100 MG in SYRINGE 9 ML IV SCH (07:28)
[2021-02-13] MEDS: METOPROLOL TARTRATE 50 MG TAB PO SCH ×2 (07:28→22:04)
[2021-02-13] MEDS: FOLIC ACID 1 MG in SYRINGE 9.8 ML IV SCH (07:28)
[2021-02-13] MEDS: ROSUVASTATIN CALCIUM 20 MG TAB PO SCH (07:29)
[2021-02-13] MEDS: INSULIN ASPART 100 UNITS/ML 3 ML PEN SC SCH ×4 (09:16→22:34)
[2021-02-13] MEDS ORDERED: OPTIRAY 320 125ml IV ONE (11:30)
--- NOTE | 2021-02-13 12:02 | Pharmacy Report ---
Pharmacy Glycemic Short Note 2 - Date of Service February 13, 2021 - Glycemic Short BSG Results (Last 24 hours): 02/12/21 02/12/21 02/13/21 16:24 20:33 06:00 Glucose 96 POC Glucose 104 H 101 H 02/13/21 02/13/21 08:54 11:44 Glucose POC Glucose 96 103 H OUTPATIENT ANTIDIABETIC REGIMEN: * Glargine 38 units SQ HS ASSESSMENT: 02/13 * Patient received 20 units of insulin, all of which 20 units were basal * Fasting BSG 96 mg/dL, no PO intake documented yesterday - will scale back on basal for HS time 02/12 * Patient received total of 20 units of insulin yesterday, of which all were basal (this is a reduced dose from outpatient dose) * Ordered clear liquid diet, however no PO intake noted with novolog coverage * BSGs well controlled over last 48 hrs on regimen, no change today 02/11 * 50 year old female admitted with AMS, type 2 diabetic, unknown control, A1c pending. * Reduced dose of Lantus given last night, blood sugars at goal, pt not eating so no NovoLog coverage received yet. * Clear liquid diet ordered. PLAN FOR INPATIENT GLYCEMIC CONTROL: * Basal insulin - decrease * Lantus 14 units SQ HS * Bolus insulin * NovoLog per scale ACHS or Q6hrs while NPO * Goal Range: Low 110 mg/dL - High 140 mg/dL * Correction Factor: 30 mg/dL/unit * Nutritional / Prandial insulin per carb ratio of 1 unit per 10 grams CHO consumed PLAN FOR DISCHARGE: * A1c 7.7 % - goal ~7% * Reasonable to continue home insulin regimen on discharge as long as oral intake improves. Currently, patient only requiring ~50% of daily home insulin needs during hospital stay
--- NOTE | 2021-02-13 12:11 | Neurology Progress Note ---
Date of Service February 13, 2021 Assessment & Plan (1) Acute alteration in mental status: Plan: 1. MRI - T2 signal and enhancement within the bilateral globus pallidi 2. would consult ID for further recommendations of Lyme + results. CSF lyme results still pending 3. will order JANE antibody, HIV, cryoglobulin, ANCA, NMDA, antithyroid - which may correlate with the finding on MRI all will be collected in the am 4. possible need for psych consult 5. continue thiamine/folate replacement 6. if nothing revealing in labs may need transferred to tertiary care hospital for further evaluation 7. recommend C/A/P CT for neoplastic work up - no mention of metatatic disease (2) Positive Lyme disease serology: Plan: 1. consult ID for further recommendations Admission and Anticipated Discharge Date Admission Date: February 10, 2021 Supervising Physician Co-Signing Physician Notes I have seen and discussed above patient with Dr Vanessa Nettles, neurology. Patient seen and examined discussed with Vanessa Crowder to reviewed this patient has had abrupt change in mental status over 7 to 10 days. Preliminary IgM Lyme positive I believe the outpatient Western blot was negative but has been repeated in our facility and is pending MRI of the brain shows abnormal signal possibly enhancing the bilateral globus pallidus. EEG normal CTA of head and neck normal lumbar puncture notable for mildly elevated total protein negative cultures Thyroid function normal. Pending tests include antithyroid antibodies antigad antibody NMDA antibody. Ceruloplasmin heavy metal copper profile pending, sed rate normal. Tox screen negative other than marijuana which patient receives medicinally. Carboxyhemoglobin negative The patient's preceding history only notable for a possible REM behavior disorder Patient's father's medical history is unknown to her that she has siblings who have no neurologic disease The patient's exam is notable for a flat affect oriented times person, bradycardia phrenic. She is distractible no fixed gaze palsy. No facial asym metry. Normal bulk and tone. Symmetric strength. Symmetrically mildly brisk reflexes query upgoing right toe. No tremor on intention. On the day of admission I thought she had several motor tics with repetitively touching her right ear with her right hand but I have not seen these in follow- up. Is difficult to assess today for cogwheel rigidity as the patient has IVs near her wrist Impression encephalopathy of uncertain etiology MRI with abnormal signal in bilateral globus pallidus suggests a toxic metabolic etiology. Nothing obvious has been identified. Tox screen negative ceruloplasmin and copper levels pending heavy metals pending. Liver functions essentially normal. Doubt related to positive IgM Lyme although recommend reaching out to infectious disease. I think PROSTHETIST Lyme would be very unusual with a normal lumbar puncture and no white cells No convincing evidence of a vasculitis CTA of head and neck sed rate unremarkable no acute infarctions noted Autoimmune etiologies, pending antigad antithyroid and NMDA antibody Paraneoplastic etiologies CT of the chest abdomen and pelvis negative mammography and pelvic exam would be reasonable at some point I have ordered an ANti-Hu antibody Although this patient's son is schizophrenic the patient has no personal history of significant psychiatric disease and this does not appear to be psychiatric Recommend referral to a tertiary care center for a second neurologic opinion. Nancy Diaz is a 50 year old female who presented to [facility] 02/11/2021 with confusion and memory issues for the past week. Memory issues were progressively but gotten worse. She would forget to put her seatbelt on and would forget to turn the head lights on when she is driving at night. She was once wearing her robe and then asked her son where her robe was. She was making coffee and instead of putting the water in the reservoir she put it over the filter. She will sometimes stare into space and take a long time to answer any questions. Her doctor put her on doxycycline about a week and a half ago because she had a partially positive Lyme test. According to aid she was up to the bathroom and walked by herself. She sat in the chair for lunch but didn't really eat anything. denies pain Review of Systems Review of Systems: All systems reviewed & are unremarkable except as noted in HPI & below Physical Exam Physical Exam: Physical Exam: Constitutional: appearance nourished, healthy and flat affect Ears, Nose, Mouth and Throat: mucous membranes moist, no injection and skin normal, eyes normal Cardiovascular: normal S-1 and S-2 and regular rate and rhythm Respiratory: course breath sounds Musculoskeletal: no peripheral edema and good distal pulses Skin: no stigmata of neurocutaneous disease noted and normal and intact Eyes: extraocular muscles intact (EOMI) NEUROLOGIC EXAMINATION: Mental status: Alert and minimally interactive she knows she is in a hospital but but says it in [place], not [facility], or where she lives Oriented to person Speech hesitant with speech clear when she talks, holding a phone in her hand but says she doesn't want to call anyone Cranial Nerves smile eye brow raise symmetric Reflexes: Deep tendon reflexes were symmetrical and graded 2/5. Sensory: no sensory deficits to light cool touch Coordination: finger to nose has hard time following directions, no abnormal movements Gait/Stance: Posture lying in bed Motor: Negative for pronator drift of out stretched arms with eyes closed. 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/5, hip flex 5/5 plantar flex ext 5/5 Results & Data ([facility]) Vital Signs (Past 12 Hours) Vital Signs Temp Pulse Pulse Resp BP Pulse Ox 02/13/21 11:42 36.6 C 64 116/78 98 02/13/21 08:50 36.7 C 57 L 132/87 94 02/13/21 03:08 36.7 C 64 18 169/81 H 97 02/13/21 01:07 61 Laboratory Results Abnormal lab results 02/12/21 02/12/21 02/13/21 Range/Units 16:24 20:33 06:00 RBC 4.17 L (4.2-5.4) M/uL Potassium (3.5-5.1) mmol/L Chloride (98-107) mmol/L POC Glucose 104 H 101 H (70-99) mg/dl 02/13/21 02/13/21 Range/Units 06:00 11:44 RBC (4.2-5.4) M/uL Potassium 3.4 L (3.5-5.1) mmol/L Chloride 111 H (98-107) mmol/L POC Glucose 103 H (70-99) mg/dl Diagnostic Findings CT C/A/P- No acute intrathoracic, intra-abdominal or intrapelvic abnormality. Unremarkable CTA of the abdomen and pelvis. . Mild tracheobronchial secretions with bibasilar mucous plugging and atelectasis. No bowel obstruction or bowel wall thickening. Fluid-filled mildly distended noninflamed appendix measures up to 8 mm. This is likely secondary to the fluid within the colon. A mucocele of the appendix is considered less likely.
--- NOTE | 2021-02-13 13:10 | CT Scan Report ---
CT chest diagnostic wo con, CT angio abdomen pelvis w con CT DOSE: 1180.54 mGy.cm CLINICAL HISTORY: 50 years-old Female with AMS, paraneopl. syndrome?. Acute altered mental status. S creening study for possible malignancy. TECHNIQUE: Multiaxial CT images of the chest were performed without contrast. CTA abdomen and pelvis was also obtained following the intravenous administration of 114 mL Optiray 320. 3-D coronal and sag ittal MIPS were obtained from the axial data set and were submitted for review. All measurements were obtained according to NASCET criteria. A dose lowering technique was utilized adhering to the princi ples of HAKEEM. COMPARISON: None. FINDINGS: CT CHEST: No thyroid nodule identified. There are a few paratracheal lymph nodes which measure within the upper limits of normal at 9 mm, likely reactive. The heart is normal in size. No pericardial effusion. No thoracic aortic aneurysm. No pneumothorax, pleural effusion, or overt pulmonary edema. Tracheobronchi al secretions with mild bibasilar mucous plugging. Mild subsegmental linear bibasilar atelectasis. Il l-defined subsegmental groundglass densities of the inferior segment lingula. No suspicious pulmonary nodules or masses. Unremarkable soft tissues. There is no acute fracture or suspicious bone lesion. There are a few chronic bilateral rib fractures. Mild superior endplate compression deformity at T11 is likely chronic. No retropulsion. CTA ABDOMEN AND PELVIS: The exam is limited secondary to motion artifact and positioning of the patient's upper extremities. The spleen, pancreas, adrenal glands and liver appear unremarkable. Cholecystectomy. Symmetric enhanc ement of the kidneys. No hydronephrosis. Decompressed urinary bladder with wall thickening. Mild hete rogeneity of the uterus. No adnexal mass lesions. No adenopathy. Mild wall thickening of the mid to d istal stomach is likely secondary to partial distention. No bowel obstruction or bowel wall thickenin g. Scattered colonic air-fluid levels. The appendix is mildly dilated measuring up to 8 mm however ap pears to be noninflamed. Tiny fat filled periumbilical hernia. No acute fracture. Degenerative change s of the spine, pelvis and hips. No suspicious bone lesion identified. Mild atherosclerotic plaque. No abdominal aortic aneurysm or dissection. Patent iliac arteries. The c eliac trunk, superior and inferior mesenteric arteries are patent. The bilateral renal arteries are a lso patent. IMPRESSION: 1. No acute intrathoracic, intra-abdominal or intrapelvic abnormality. 2. Unremarkable CTA of the abdomen and pelvis. 3. Mild tracheobronchial secretions with bibasilar mucous plugging and atelectasis. 4. No bowel obstruction or bowel wall thickening. 5. Fluid-filled mildly distended noninflamed appendix measures up to 8 mm. This is likely secondary t o the fluid within the colon. A mucocele of the appendix is considered less likely. 6. Additional findings as above. ACT 112: Negative or not required by law. Dictated: 02/13/2021 11:55 AM Transcribed: 02/13/2021 12:38 PM Negar [id number] Electronically signed by: Jimmy Sauer M.D. 02/13/2021 1:09 PM
[2021-02-13] MEDS ORDERED: POTASSIUM CHLORIDE CRTAB 20 MEQ TABCR PO STA (13:34)
[2021-02-13] MEDS ORDERED: INSULIN GLARGINE SOLOSTAR 100 UNITS/ML 3 ML PEN SC SCH (21:00)
[2021-02-13] MEDS: cefTRIAXone SODIUM 2,000 MG in DEXTROSE 5% 50 ML IV SCH (22:02)
[2021-02-13] MEDS: INSULIN GLARGINE SOLOSTAR 100 UNITS/ML 3 ML PEN SC SCH (22:35)
--- NOTE | 2021-02-14 07:25 | Hospitalist Progress Note ---
Date of Service February 13, 2021 Assessment & Plan (1) Acute alteration in mental status: Plan: Progressively worsening mental status over past week Patient unable to do simple tasks, forgetting to turn on the lights in the car, operating coffee machine operating TV, also reported staring episodes Not oriented to place or time, only oriented to herself No numbness weakness, or any other focal deficits Not clear if this is secondary to possible stroke, seizure , drug use, infectious or other etiology Lyme panel in the outpatient setting, obtained, and patient started on doxycycline 1 week ago (however outpt WB negat.) CT head and neck done in the ED unremarkable Patient has history of tobacco, marijuana and alcohol use. Alcohol level undetectable in the ED. Not clear if patient is using any substances Toxicology obtained - positive for marijuana UA, U cultx not c/w UTI Blood cultures NGTD LP done in the ED, results pending Lyme serology obtained in ED, IgM positive, IgG negative, final results pending At home was on doxycycline for 1 week, started on ceftriaxone on admission, cont. for now RPR pending Anaplasma smear - negative, ? PCR Obtained vit. B12, folic acid level - both wnl Ammonia level - 19 (wnl) TSH normal carboxyhemoglobin - normal MRI, EEG - obtained, see below MRI brain - IMPRESSION: Chronic volume loss and age related white matter changes without evidence of acute abnormality. ADDENDUM After additional review, there is abnormal T2 signal and enhancement within the bilateral globus pallidi. This is nonspecific but can be seen in the setting of neurodegenerative/metabolic abnormalities or neural tach since. Lymphoma or infections are considered less likely but also included in the differential. EEG - Interpretation This EEG between muscle movement artifact is essentially normal during wakefulness without evidence for focal generalized encephalopathy without evidence for potentially epileptogenic activity Clinical Correlation This is a normal EEG during wakefulness without evidence for focal generalized encephalopathy without evidence for potentially epileptogenic activity but is unfortunate compromised by quite a bit of muscle movement activity which has no underlying electroencephalographic correlates Neurology consulted, appreciate their input This patient appears to have an encephalopathy with some abnormal movement, some cogwheel rigidity. Her MRI showing abnormalities in the bilateral globus pallid us. History is not particularly revealing. The differential is broad and includes toxic metabolic etiologies, would check heavy metals, ceruloplasmin, copper, methylmalonic acid, CAROLYN, sed rate, anticardiolipin antibodies, TSH and carbon monoxide level. If that is unremarkable, would check for cyanide. The degenerative processes that can be associated include Eren's disease, Birgit's disease, CJD. I am somewhat suspicious given her abnormal movements and that she has something like [place] however, there is no family history of the same, although her father's medical history is not known. Further neuro recommendations: - would consult ID for further recommendations of Lyme + results. CSF lyme resu lts still pending - JANE antibody, HIV, cryoglobulin, ANCA, NMDA, antithyroid - which may correlate with the finding on MRI - possible need for psychiatry consult - continue thiamine/folate replacement - recommend C/A/P CT for neoplastic work up 02/13 - CT chest, CT abd/ pelvis w/ contrast ordered Psychiatry eval ordered Will further discuss w/ neurology and psychiatry Pt may need second opinion - neurology eval at tertiary center (2) Positive Lyme disease serology: Plan: -Had Lyme disease panel in outpatient setting, and was started on doxycycline, however final results were not conclusive -In the ED, currently IgM positive for Lyme, final results pending -Patient has been on doxycycline, will stop now, will start IV ceftriaxone and continue to monitor closely (3) Hypokalemia: Plan: -Replete and monitor (4) Hypomagnesemia: Plan: -Replete and monitor (5) Diabetes mellitus: Plan: Currently on insulin Current Hgb A1c 7.7% For now decrease home glargine, sliding scale, monitor blood sugars HTN, HLD -Continue home medications, monitor blood pressure Depression -Continue home medications DVT ppx : SCDs for now Code: Full Admission and Anticipated Discharge Date Admission Date: February 10, 2021 Subjective Patient seen in follow-up of altered mental status/confusion Underwent LP in the ED MRI brain obtained EEG obtained Will obtain CT chest/abd/ pelvis Will discuss further w/ psychiatry and neurology Currently laying in bed, in no acute distress. She can not tell me where she is, or where she lives (today says she lives in ER - after I told her that we met initially in ER when she came with her son for evaluation). She can not say what year it is or answer any other simple questions. She denies headache, chest pain, shortness of breath, palpitations, abdominal pain, nausea vomiting. Also denies any backache. Review of Systems Review of Systems: All systems reviewed & are unremarkable except as noted in Subjective Physical Exam Physical Exam: Constitutional: WD/WN, vitals as above Eyes: PERRL, EOMI, conjunctivae normal, anicteric sclerae ENMT: external ear and nose normal, oropharynx normal Neck: supple Respiratory: normal respiratory effort, lungs clear to auscultation Cardiovascular: RRR, no murmur, no edema Chest : normal inspection of chest Gastrointestinal (Abdomen): normal bowel sounds, soft, nontender Musculoskeletal: extremities motor strength 5/5, moves extremities spontaneously Skin: no rashes, warm and dry Neuro/ Psych: Pt is awake and alert, however not able to answer simple questions appropriately. She does not know where she is, where she lives, what year it is. She is able to tell me her name. She follows simple commands and she is cooperative. She has no weakness in her extremities, and she moves all extremities spontaneously. gait not assessed. Results & Data Results & Data ([facility]) Vital Signs (Past 12 Hours) Vital Signs Temp Pulse Pulse Resp BP Pulse Ox 02/13/21 23:00 85 02/13/21 22:04 78 17 129/78 94 Medications Administered Current Inpatient Medications Acetaminophen (Acetaminophen 325 Mg Tab) 650 mg PO Q4H PRN PRN Reason: Pain or Fever Stop: 03/12/21 19:29 Dextrose (Dextrose 50% 50 Ml Syringe) 25 - 50 ml IV UD PRN; Protocol PRN Reason: Hypoglycemia Protocol Stop: 03/12/21 19:50 Glucagon (Glucagon For Inj 1 Mg Vial) 1 mg SQ UD PRN; Protocol PRN Reason: Hypoglycemia Protocol Stop: 03/12/21 19:50 Glucose (Glucose 10 Tabs/Tube) 4 - 8 tabs PO UD PRN; Protocol PRN Reason: Hypoglycemia Protocol Stop: 03/12/21 19:50 Glucose (Glucose 40% Gel 15 Gm Tube) 15 - 30 gm PO UD PRN; Protocol PRN Reason: Hypoglycemia Protocol Stop: 03/12/21 19:50 Ceftriaxone Sodium 2,000 mg/ (Dextrose) 70 mls @ 140 mls/hr IV DAILY@2100 [facility] Stop: 02/20/21 20:59 Last Infusion: 02/13/21 22:37 Dose: Infused Documented by: Thiamine HCl 100 mg/ Syringe 10 mls @ 2 mls/min IV QAM [facility] Stop: 03/13/21 09:59 Last Admin: 02/13/21 07:28 Dose: 2 mls/min Documented by: Folic Acid 1 mg/ Syringe 10 mls @ 5 mls/min IV QAM [facility] Stop: 03/13/21 09:59 Last Admin: 02/13/21 07:28 Dose: 5 mls/min Documented by: Insulin Aspart (Insulin Aspart 100 Units/Ml 3 Ml Pen) 0 units SC ACHS [facility] Stop: 03/12/21 20:59 Last Admin: 02/13/21 22:34 Dose: Not Given Documented by: Insulin Glargine (Insulin Glargine Solostar 100 Units/Ml 3 Ml Pen) 0 units SC HS [facility]; Protocol Stop: 03/15/21 20:59 Last Admin: 02/13/21 22:35 Dose: 12 units Documented by: Metoprolol Tartrate (Metoprolol Tartrate 50 Mg Tab) 50 mg PO BID [facility] Stop: 03/12/21 21:29 Last Admin: 02/13/21 22:04 Dose: 50 mg Documented by: Miscellaneous (Carbohydrates For Hypoglycemia ) 15 - 30 gm PO UD PRN PRN Reason: Hypoglycemia Protocol Stop: 03/12/21 19:50 Miscellaneous Information (Pharmacy Glycemic Mgmt Consult) 1 ea N/A UD PRN PRN Reason: Consult Stop: 03/12/21 19:51 Rosuvastatin Calcium (Rosuvastatin Calcium 20 Mg Tab) 40 mg PO DAILY [facility] Stop: 03/13/21 08:59 Last Admin: 02/13/21 07:29 Dose: 40 mg Documented by:
[2021-02-14] MEDS ORDERED: POTASSIUM CHLORIDE CRTAB 20 MEQ TABCR PO STA (07:34)
[2021-02-14] MEDS: INSULIN ASPART 100 UNITS/ML 3 ML PEN SC SCH ×4 (07:47→20:46)
[2021-02-14] MEDS: THIAMINE HCL 100 MG in SYRINGE 9 ML IV SCH (07:49)
[2021-02-14] MEDS: ROSUVASTATIN CALCIUM 20 MG TAB PO SCH (07:49)
[2021-02-14] MEDS: METOPROLOL TARTRATE 50 MG TAB PO SCH ×2 (07:49→20:44)
[2021-02-14] MEDS: FOLIC ACID 1 MG in SYRINGE 9.8 ML IV SCH (07:49)
[2021-02-14 08:00] LABS: Hematocrit (blood only) 40.8 % (37-47); Hemoglobin 14.4 g/dL (12.0-16.0); Mean Corpuscular Hemoglobin 34.6 pg (25-34); Mean Corpuscular Hgb Conc 35.3 g/dL (32-36); Mean Corpuscular Volume 98.1 fL (80-100); Mean Platelet Volume 9.6 fL (7.4-10.4); Platelet Count 266 K/uL (130-400); RDW Coefficient of Variation 13.1 % (11.5-14.5); RDW Standard Deviation 47.1 fL (36.4-46.3); Red Blood Count 4.16 M/uL (4.2-5.4); White Blood Count 8.67 K/uL (4.8-10.8)
[2021-02-14 08:34] LABS: BUN Creatinine Ratio 15.5 (10-20); Calcium 9.6 mg/dl (8.5-10.1); Creatinine Clr Calc Pharmacy 86.2 ml/min; Est GFR (African American) 102.9 ml/min; Est GFR (Non-African American) 88.8 ml/min; Potassium 3.8 mmol/L (3.5-5.1)
[2021-02-14 09:16] LABS: 18KDIGG Band NON-REACTIVE; 23KDIGG Band NON-REACTIVE; 23KDIGM Band REACTIVE; 28KDIGG Band NON-REACTIVE; 30KDIGG Band NON-REACTIVE; 39KDIGG Band NON-REACTIVE; 39KDIGM Band NON-REACTIVE; 41KDIGG Band NON-REACTIVE; 41KDIGM Band NON-REACTIVE; 45KDIGG Band NON-REACTIVE; 58KDIGG Band NON-REACTIVE; 66KDIGG Band NON-REACTIVE; 93KDIGG Band NON-REACTIVE; Lyme Antibodies, WB IgG NEGATIVE (NEGATIVE); Lyme Antibodies, WB IgM NEGATIVE (NEGATIVE)
[2021-02-14 10:12] LABS: Marijuana Quant, GCMS Urine 489 ng/mL (<5)
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
--- NOTE | 2021-02-14 18:01 | Progress Notes ---
DATE OF SERVICE: 02/14/2021 SUBJECTIVE: I am seeing Mrs. Rossi in followup about a 10-day change in mentation. No additional labs are available. The pending labs include CAROLYN, antithyroid antibodies, anti-JANE, cryoglobulins, anticardiolipin antibodies. Her Lyme IgM was positive. COVID-19 negative. HIV pending. Heavy metal profile pending. Anti-Hu antibody pending. CSF is negative to date in terms of culture. OBJECTIVE: On exam, the patient is awake. She had been sleeping when I awakened her. Blood pressure 141/84, 70, 18, 36.6, 93%. She is awake, followed one simple command. Unable to tell me her name today, which might be because she is sleepy, able to tell me what name is not her name. Her pupils are equal. No abnormal eye movements are noted. No opsoclonus or myoclonus. There is no resting tremor. There is some cogwheeling at the wrists, which is difficult to interpret given that she has IVs in her hands and is painful to her. I do not see any abnormal movements such as tics or chorea or myoclonus. Her tone appears fairly unremarkable other than the cogwheeling and her upper extremity strength is voluntarily symmetric. She would not follow commands to move legs, although she is obviously moving her legs in the bed. Her reflexes are diffusely brisk and toes are equivocal. IMPRESSION AND PLAN: This patient has a 7-10 day history of a marked change in mental status with stability while hospitalized. She is a little more sleepy today, but I did wake her from a nap. Her clinical features have included a change in memory and confusion, a change in personality with no hallucinations or agitation. 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 Her father's medical history is not known, but none of her siblings have a heritable disorder. Her Lyme IgM was positive. Initially, she was treated with doxycycline as an outpatient and is now on ceftriaxone. Her lumbar puncture did not show an increase in cells, although showed a total protein of about 69. Her thyroid functions and sedimentation rate have been unremarkable. Toxicology screen is notable for marijuana. CT of the chest, abdomen and pelvis did not reveal a malignancy. EEG did not show any slowing with triphasic waves. MRI of the brain showed abnormalities in the bilateral globus pallidus, possibly mildly enhancing with a broad differential including toxic, metabolic, infectious, autoimmune, and paraneoplastic etiologies. CTA of the head and neck was noncontributory. Pending laboratories include anti-JANE, anti-Hu, CAROLYN, NMDA, ceruloplasmin, copper, heavy metals. Although the patient is stable or perhaps mildly sleepier today, at this point, I would recommend a transfer to a tertiary care center for further evaluation. I have spoken to Dr. Cerda about this patient and we discussed seeing if the laboratory has cerebrospinal fluid available and adding a 14-3-3 assay to her cerebrospinal fluid. Other options might be to perform a real time quaking- induced conversion assay on the cerebrospinal fluid, although I assume that will require another lumbar puncture. I believe the patient would benefit from the diagnostics and potentially therapeutics, at a tertiary care center. I appreciate psychiatry's consultation. They do not believe this is a primary psychiatric event and I do not either. They raised the question of her frontotemporal dementia, although this would not be a typical frontotemporal dementia. This is almost more of an encephalopathy or rapidly progressive dementia. Job ID: [id number] [facility]
--- NOTE | 2021-02-14 19:58 | Hospitalist Progress Note ---
Date of Service February 14, 2021 Assessment & Plan (1) Acute alteration in mental status: Plan: 50-year-old female with history of hypertension, hyperlipidemia, diabetes mellitus type 2, on insulin, depression, GERD, who presents / with altered mental status/ confusion of 1 week [employer]IL FI[employer]IST. She is being managed for the following: #. Acute alteration in mental status: Progressively worsening mental status over past week [employer]IL FI[employer]IST Patient unable to do simple tasks, forgetting to turn on the lights in the car, operating coffee machine operating TV, also reported staring episodes Not oriented to place or time, only oriented to herself No numbness weakness, or any other focal deficits Not clear if this is secondary to possible stroke, seizure , drug use, infectious or other etiology Lyme panel in the outpatient setting, obtained, and patient started on doxycycline 1 week ago (however outpt WB negat.) CT head and neck done in the ED unremarkable Patient has history of tobacco, marijuana and alcohol use. Alcohol level undetectable in the ED. Not clear if patient is using any substances No family history of Sebastian's disease although her father's medical history is not known. Toxicology obtained - positive for marijuana UA, U cultx not c/w UTI Blood cultures NGTD LP done in the ED, CSF Lyme serology pending Lyme serology obtained in ED, IgM positive, IgG negative, final results pending At home was on doxycycline for 1 week, started on ceftriaxone on admission, cont. for now RPR and HIV pending Anaplasma smear - negative, ? PCR Obtained vit. B12, folic acid level - both wnl Ammonia level - 19 (wnl) TSH normal carboxyhemoglobin - normal 02/10 MRI: Abnormal T2 signal and enhancement within the bilateral globus pallidus, nonspecific but can be seen in the setting of neurodegenerative/metabolic abnormalities. Less likely but can also include lymphoma or infections. EEG did not show any slowing with triphasic waves. Neurology consulted: Recommends transfer to tertiary center.Pending laboratories include anti-JANE, anti-Hu, CAROLYN, NMDA, ceruloplasmin, copper, heavy metals. Discussed with neurology, adding 14-3-3 assay to the already collected CSF if possible. The degenerative processes that can be associated include Eren's disease, Sebastian's disease, CJD or rapidly progressive dementia. CTAP negative for malignant process. Continue with thiamine/folate replacement, will initiate possible transfer to [place]. Psychiatry consulted: Does not feel primarily psychiatric presentation. Recommended trying Ativan trial if catatonia suspected after ruling out other neurological causes but cautions that could cause worsening of mental status and delirium especially if this represents the beginning of a dementia process. #. Positive Lyme disease serology: -Had Lyme disease panel in outpatient setting, and was started on doxycycline, however final results were not conclusive -In the ED, currently IgM positive for Lyme, final results pending -Patient has been on doxycycline, changed to IV ceftriaxone and continue to monitor closely #. Hypokalemia: Plan: -Replete and monitor #. Hypomagnesemia: -Replete and monitor #. Diabetes mellitus: Currently on insulin Current Hgb A1c 7.7% For now decrease home glargine, sliding scale, monitor blood sugars HTN, HLD -Continue home medications, monitor blood pressure Depression -Continue home medications DVT ppx : SCDs for now Code: Full Admission and Anticipated Discharge Date Admission Date: February 10, 2021 Subjective Patient was sitting up in bed, room air, NAD, purposeless movement of the upper and lower extremities noted. Patient denied pain/headache/other review of symptoms. Patient was AO x self. ROS limited. Physical Exam Physical Exam: GENERAL: Alert and oriented xself. NAD, on RA. HEENT: No pallor, no icterus. Pupils equal, round and reactive to light. Oral mucosa moist. NECK: No JVD, no neck masses. HEART: S1 and S2 heard. Regular rate and rhythm. No murmur, no gallop. RESPIRATORY SYSTEM: Normal AP diameter. No accessory muscle use. No wheezing, no crackles. ABDOMEN: Soft, bowel sounds present, nontender, no distention. CENTRAL NERVOUS SYSTEM: No facial droop. Speech is clear. Obeys simple commands. Moves extremities. EXTREMITIES: No edema, no erythema seen. Purposeless movement of the upper and lower extremities noted. Results & Data Results & Data ([facility]) Vital Signs (Past 12 Hours) Vital Signs Temp Pulse Pulse Resp BP Pulse Ox 02/14/21 14:58 70 02/14/21 08:00 72 02/14/21 07:40 36.6 C 78 18 141/84 H 93
[2021-02-14] MEDS: cefTRIAXone SODIUM 2,000 MG in DEXTROSE 5% 50 ML IV SCH (20:43)
[2021-02-14] MEDS: INSULIN GLARGINE SOLOSTAR 100 UNITS/ML 3 ML PEN SC SCH (20:47)
[2021-02-15 08:16] LABS: Calcium 9.8 mg/dl (8.5-10.1); Creatinine Clr Calc Pharmacy 94.9 ml/min; Est GFR (African American) 102.9 ml/min; Est GFR (Non-African American) 88.8 ml/min; Phosphorus 3.4 mg/dl (2.5-4.9); Potassium 3.5 mmol/L (3.5-5.1)
[2021-02-15] MEDS: FOLIC ACID 1 MG in SYRINGE 9.8 ML IV SCH (08:55)
[2021-02-15] MEDS: THIAMINE HCL 100 MG in SYRINGE 9 ML IV SCH (08:55)
[2021-02-15] MEDS: METOPROLOL TARTRATE 50 MG TAB PO SCH (08:55)
[2021-02-15] MEDS: ROSUVASTATIN CALCIUM 20 MG TAB PO SCH (08:55)
[2021-02-15] MEDS: INSULIN ASPART 100 UNITS/ML 3 ML PEN SC SCH ×3 (08:55→16:59)
--- NOTE | 2021-02-15 09:32 | Pharmacy Report ---
Pharmacy Glycemic Short Note 2 - Date of Service February 15, 2021 - Glycemic Short BSG Results (Last 24 hours): 02/14/21 02/14/21 02/14/21 12:35 16:40 20:37 Glucose POC Glucose 129 H 96 115 H 02/15/21 02/15/21 06:37 08:09 Glucose 111 H POC Glucose 118 H OUTPATIENT ANTIDIABETIC REGIMEN: * Lantus 38 units SC HS * Hba1c = 7.7% (02/11/21) ASSESSMENT: 02/15: * Emily received a total of 12 units of insulin yesterday (all basal) * BSGs were well controlled: 28-076-70-115 mg/dL * Fasting BSG well controlled at 118 mg/dL this AM * No changes in insulin regimen today. Poor appetite remains. 02/13: * Patient received 20 units of insulin, all of which 20 units were basal * Fasting BSG 96 mg/dL, no PO intake documented yesterday - will scale back on basal for HS time PLAN FOR INPATIENT GLYCEMIC CONTROL: * Basal insulin * Lantus 10-12 units SC HS (see eMAR for more details) * Bolus insulin * NovoLog per scale ACHS or Q6hrs while NPO * Goal Range: Low 110 mg/dL - High 140 mg/dL * Correction Factor: 30 mg/dL/unit * Nutritional / Prandial insulin per carb ratio of 1 unit per 10 grams CHO consumed PLAN FOR DISCHARGE: * HbA1c was 7.7 % this admission. Goal HbA1c based on her age and comorbidities would be less than 7%. * Reasonable to continue home Lantus dose at time of discharge as long as patient is eating better. Patient should report any signs/symptoms of hypo/hyperglycemia to her PCP immediately. * Recommend starting: Metformin XR 500mg PO daily with evening meal. * Typically the XR formulation of metformin is better tolerated than the immediate release formulation. * Continue to titrate metformin dosing upwards as recommended. Dosage increases should be made in increments of 500 mg weekly, up to 2,000 mg/day PO, given in divided doses. * Doses above 2000 mg/day may be better tolerated if divided and given 3 times per day with meals. Max: 2,550 mg/day PO, in divided doses. * Vitamin B12 supplementation may be necessary with long-term metformin use.
--- NOTE | 2021-02-15 15:42 | Neurology Progress Note ---
Date of Service February 15, 2021 Assessment & Plan (1) Acute alteration in mental status: Plan: 1. MRI - T2 signal and enhancement within the bilateral globus pallidi 2. would consult ID for further recommendations of Lyme + results. CSF lyme results still pending 3. ordered JANE antibody, HIV, cryoglobulin, ANCA, NMDA, antithyroid - which may correlate with the finding on MRI all will be collected in the am 4. psychiatry does not feel this is psychiatric diagnosis 5. continue thiamine/folate replacement 6. nothing so far revealing in labs awaiting transfer to [place] 7. C/A/P CT for neoplastic work up - no metastatic disease revealed (2) Positive Lyme disease serology: Plan: 1. consult ID for further recommendations Admission and Anticipated Discharge Date Admission Date: February 10, 2021 Supervising Physician Co-Signing Physician Notes I have seen and discussed above patient with Dr Vanessa Nettles, neurology Patient seen and examined. Discussed with Vanessa Crowder. The patient is awake distractible only able to tell me her first name follows rare simple commands. Lying in bed moving legs doing a little bit of picking. No myoclonus asterixis chorea is currently noted. There is no flap or tremor on intention that I can determine. Pupils are equal and reactive no fixed gaze preference no facial asymmetry. Tone is not assessable due to noncooperation reflexes diffusely brisk toes are equivocal no clonus Encephalopathy concern regarding an autoimmune or paraneoplastic etiology with negative work-up to date recommend transfer to tertiary care center they may want to repeat EEG testing to see if it is changed. I do not know if they will empirically treat her with steroids as we await the results of her antibody testing for antithyroid NMDA jane and anti-HU. Sign the Vanessa Cruz Emily is a 50 year old female who presented to [facility] 02/11/2021 with confusion and memory issues for the past week. Memory issues were progressively but gotte n worse. She would forget to put her seatbelt on and would forget to turn the head lights on when she is driving at night. She was once wearing her robe and then asked her son where her robe was. She was making coffee and instead of putting the water in the reservoir she put it over the filter. She will sometimes stare into space and take a long time to answer any questions. Her doctor put her on doxycycline about a week and a half ago because she had a partially positive Lyme test. Today she is sitting in bed no acute distress. Review of Systems Review of Systems: Unobtainable due to cognitive status Physical Exam Physical Exam: Physical Exam: Constitutional: appearance over nourished, healthy and flat affect Ears, Nose, Mouth and Throat: mucous membranes moist, no injection and skin normal, eyes normal Cardiovascular: normal S-1 and S-2 and regular rate and rhythm Respiratory: course breath sounds Musculoskeletal: no peripheral edema and good distal pulses Skin: no stigmata of neurocutaneous disease noted and normal and intact Eyes: extraocular muscles intact (EOMI) NEUROLOGIC EXAMINATION: Mental status: Alert and minimally interactive she knows her name but will not respond to any further questions Oriented to person Speech will not respond to simple questions Cranial Nerves facial symmetry Coordination: finger to nose has hard time following directions, no abnormal movements Gait/Stance: Posture sitting up in bed Motor: purposeful movement Strength: 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 director museum 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
--- NOTE | 2021-02-15 17:28 | Hospitalist Progress Note ---
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 She is being managed for the following: #. 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 Alcohol level undetectable in the ED. Not clear if patient is using any substances No family history of Landing's disease although her father's medical history is not known. Toxicology obtained - positive for marijuana UA, U cultx not c/w UTI Blood cultures NGTD LP done in the ED, CSF Lyme serology pending, protein 14-3-3 beta sent. Patient Lyme serology obtained in ED, negative IgG and IgM Western blot test [IgM band 1 out of 3 positive], will await CSF Lyme studies before deciding on Rocephin discontinuation. RPR nonreactive and HIV underlying ng Anaplasma smear - negative, Obtained vit. B12, folic acid level - both wnl Ammonia level - 19 (wnl) TSH normal carboxyhemoglobin - normal 02/10 MRI: Abnormal T2 signal and enhancement within the bilateral globus pallidus, nonspecific but can be seen in the setting of neurodegenerative/metabolic abnormalities. Less likely but can also include lymphoma or infections. EEG did not show any slowing with triphasic waves. Neurology consulted: Recommends transfer to tertiary center.Pending laboratories include anti-JANE, anti-Hu, CAROLYN, NMDA, ceruloplasmin, copper, heavy metals. The degenerative processes that can be associated include Eren's disease, Landing's disease, CJD or rapidly progressive dementia. CTAP negative for malignant process. Continue with thiamine/folate replacement, will initiate possible transfer to [place]. Psychiatry consulted: Does not feel primarily psychiatric presentation. Recommended trying Ativan trial if catatonia suspected after ruling out other neurological causes but cautions that could cause worsening of mental status and delirium especially if this represents the beginning of a dementia process. #. Positive Lyme disease serology: -Had Lyme disease panel in outpatient setting, and was started on doxycycline, however final results were not conclusive -In the ED, currently IgM positive for Lyme, CSF Lyme studies pending -Patient has been on doxycycline, changed to IV ceftriaxone and continue to monitor closely #. Hypokalemia: Plan: -Replete and monitor #. Hypomagnesemia: -Replete and monitor #. Diabetes mellitus: Currently on insulin Current Hgb A1c 7.7% For now decrease home glargine, sliding scale, monitor blood sugars HTN, HLD -Continue home medications, monitor blood pressure Depression -Continue home medications 02/15 talked with [facility] for possible transfer with neurologist Dr. Boles. Patient is accepted, awaiting bed availability. Patient's updated over the phone who voices understanding and agrees with the plan, paperwork done. Await transfer. DVT ppx : SCDs for now Code: Full Admission and Anticipated Discharge Date Admission Date: February 10, 2021 Subjective Patient was sitting up in bed, room air, NAD, unpurposeful movement of the upper and lower extremities. Patient is alert and oriented to self only. Patient denied any pain/headache/dizziness/other review of symptoms. Physical Exam Physical Exam: GENERAL: Alert and oriented xself. NAD, on RA. HEENT: No pallor, no icterus. Pupils equal, round and reactive to light. Oral mucosa moist. NECK: No JVD, no neck masses. HEART: S1 and S2 heard. Regular rate and rhythm. No murmur, no gallop. RESPIRATORY SYSTEM: Normal AP diameter. No accessory muscle use. No wheezing, no crackles. ABDOMEN: Soft, bowel sounds present, nontender, no distention. CENTRAL NERVOUS SYSTEM: No facial droop. Speech is clear. Obeys simple commands. Moves extremities. EXTREMITIES: No edema, no erythema seen. Purposeless movement of the upper and lower extremities noted. Results & Data Results & Data ([facility]) Vital Signs (Past 12 Hours) Vital Signs Temp Pulse Pulse Resp BP Pulse Ox 02/15/21 15:43 36.8 C 78 18 109/74 93 02/15/21 15:25 71 02/15/21 11:10 36.7 C 75 16 119/79 95 02/15/21 07:41 70 02/15/21 07:22 36.8 C 89 16 130/92 94
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
[2021-02-15 22:42] LABS: Lyme IgG Band Pattern CSF DNR; Lyme IgG CSF NO BANDS DETECTED; Lyme IgM Band Pattern CSF DNR; Lyme IgM CSF NO BANDS DETECTED; VDRL Qualitative CSF Nonreactive (Nonreactive)
[2021-02-16 22:29] LABS: Anti Nuclear Antibody Screen NEGATIVE (NEGATIVE); B2 Glycoprotein IgA <2.0 U/mL (<20.0); B2 Glycoprotein IgG <2.0 U/mL (<20.0); B2 Glycoprotein IgM <2.0 U/mL (<20.0); Ceruloplasmin 33 mg/dL (18-53); Copper, Serum 111 mcg/dL (70-175); Methylmalonic Acid 101 nmol/L (87-318); Phosphatidylserine IgG <10 U/mL (<10); Phosphatidylserine IgM 31 U/mL (<25)
[2021-02-17 20:06] LABS: ANCA Screen Negative (Negative); HIV 1 RNA PCR Copies/ML <20 Copies/mL; HIV-1 RNA Log Copies/mL <1.30 Log cps/mL; Microsomal Ab 1 IU/mL (<9); Thyroglobulin Antibodies <1 IU/mL (< or = 1)
[2021-02-20 15:31] LABS: % Cryocrit DNR; Cryoglobulin, QL Negative (Negative)
== END 2021-02-15 20:35 | disposition short-term general hospital (02) | DRG 868 ==
LOC: ED 14:22 → SUATTDRO 19:30 → 2S 19:30 → 2N 02-12 23:21